=== PATIENT | female | born 1950 | race Caucasian/White ===

== ENCOUNTER → 2016-11-29 | Outpatient (CLI) | payer MEDICARE, BC | END | disposition home or self-care (01) | LOC: LABWHC1 08:14 | PROVIDERS: ATTEND Nurse Practitioner Adult Health | DX: E78.2 Mixed hyperlipidemia (principal); E03.8 Other specified hypothyroidism | CPT/HCPCS: 36415; 80061; 82550; 84443; 84450; 84460 ==

== ENCOUNTER → 2017-04-30 | Outpatient (CLI) | payer MEDICARE, BC ==
[2017-04-30 08:09] LABS: Cholesterol 258 mg/dL (<200); Glucose 90 mg/dL (74-99); HDL Cholesterol 104 mg/dL (40-60)
== END | disposition home or self-care (01) ==
LOC: LABWHC1 07:24
PROVIDERS: ATTEND Family Medicine
DX: Z13.9 Encounter for screening, unspecified (principal)
CPT/HCPCS: 36415; 80061; 82947; 86803

== ENCOUNTER → 2017-10-17 | Outpatient (CLI) | payer MEDICARE, BC ==
[2017-10-17 08:26] LABS: ALT 28 U/L (9-52); AST 30 U/L (14-36); Cholesterol 209 mg/dL (<200); HDL Cholesterol 99 mg/dL (40-60); LDL Cholesterol,Calculated 97 mg/dL (0-99); Triglycerides 67 mg/dL (<150)
== END | disposition home or self-care (01) ==
LOC: LABWHC1 07:25
PROVIDERS: ATTEND Internal Medicine Interventional Cardiology
DX: E78.2 Mixed hyperlipidemia (principal)
CPT/HCPCS: 36415; 80061; 84450; 84460

== ENCOUNTER → 2019-11-01 | Outpatient (CLI) | payer MEDICARE, BC ==
[2019-11-01 16:14] LABS: Chol/HDL Ratio 2.51; LDL Cholesterol,Calculated 128.4 mg/dL (0.0-131.0); VLDL Calculation 10.6 mg/dL (5.00-40.00)
== END | disposition home or self-care (01) ==
LOC: LABWHC1 09:06
PROVIDERS: ATTEND Nurse Practitioner Adult Health
DX: E78.5 Hyperlipidemia, unspecified (principal)
CPT/HCPCS: 36415; 80061; 84450; 84460

== ENCOUNTER → 2019-12-30 | Outpatient (CLI) | payer MEDICARE, BC ==
--- NOTE | 2019-12-30 12:43 | XR ---
Left hip HISTORY: Left hip pain 2 views the left hip Bone mineralization, joint spaces and alignment are maintained. No fracture or dislocation. Phlebolit hs are present within the pelvis. IMPRESSION: No significant abnormality is evident
== END | disposition home or self-care (01) ==
LOC: RADXRMAIN 10:04
PROVIDERS: ATTEND Family Medicine
DX: M25.552 Pain in left hip (principal)
CPT/HCPCS: 73502

== ENCOUNTER → 2020-02-18 | Outpatient (CLI) | payer MEDICARE, BC ==
--- NOTE | 2020-02-22 07:17 | MM ---
Reason for exam: screening (asymptomatic). Last mammogram was performed 1 year and 5 months ago. History: Patient is postmenopausal and is nulliparous. Benign stereotactic core biopsy, 1989. Benign excisional biopsy, 1989. Took estrogen for 5 years. Physical Findings: A clinical breast exam by your physician is recommended on an annual basis and results should be correlated with mammographic findings. MG 3D Screening Mammo W/Cad Bilateral CC and MLO view(s) were taken. Prior study comparison: September 07, 2018, mammogram. September 01, 2017, mammogram. The breast tissue is heterogeneously dense. This may lower the sensitivity of mammography. No significant changes when compared with prior studies. ASSESSMENT: Negative, BI-RAD 1 RECOMMENDATION: Routine screening mammogram of both breasts in 1 year.
== END | disposition home or self-care (01) ==
LOC: RADMAMWWP 14:41
PROVIDERS: ATTEND Family Medicine
DX: Z12.31 Encounter for screening mammogram for malignant neoplasm of breast (principal)
CPT/HCPCS: 77063; 77067

== ENCOUNTER → 2020-10-12 | Outpatient (CLI) | payer MEDICARE, BC | END | disposition home or self-care (01) | LOC: LABWHC1 16:15 | PROVIDERS: ATTEND Otolaryngology | DX: J06.9 Acute upper respiratory infection, unspecified (principal); H91.20 Sudden idiopathic hearing loss, unspecified ear | CPT/HCPCS: U0003; C9803 ==

== ENCOUNTER 2020-12-29 10:35 | Day surgery (SDC) | payer MEDICARE, BC ==
[2020-12-28 13:42] VITALS: BMI 21.9
[~2020-12-29 10:35] MED LIST: LACTATED RINGERS 1,000 ML IV SCH
[2020-12-29 11:24] VITALS: TEMP 97.7
[2020-12-29] MEDS ORDERED: LACTATED RINGERS 1,000 ML IV ONE ×2 (11:24)
[2020-12-29] MEDS ORDERED: LIDOCAINE 1% (10MG/ML) FOR IV START INTRADERMA ONE (11:35)
[2020-12-29 11:36] LABS: Glucose,Whole Blood 90 mg/dL (75-99)
[2020-12-29] MEDS ORDERED: ONDANSETRON 4 MG/2 ML VIAL ONE (12:17)
[2020-12-29] MEDS ORDERED: PROPOFOL 10 MG/ML 20 ML VIAL IV ONE (12:17)
[2020-12-29] MEDS ORDERED: LIDOCAINE 1% INJ 10MG/ML (20 ML MDV) ONE (12:17)
--- NOTE | 2020-12-29 12:27 | P.PCN ---
Date of Procedure: 12/29/20 Procedure(s) Performed: BRIEF HISTORY: Patient is a 70-year-old, pleasant, female scheduled for an upper endoscopy as a part of evaluation of atypical chest pain and heartburn for the last 6 weeks duration. She was recently started on omeprazole 20 mg daily as well as Pepcid in the afternoon and symptoms are gradually improving. Scheduled for an upper endoscopy to evaluate further. PROCEDURE PERFORMED: Esophagogastroduodenoscopy with biopsy. PREOPERATIVE DIAGNOSIS: GERD/atypical chest pain of 2 months duration. IV sedation per anesthesia. PROCEDURE: After informed consent was obtained, the patient was brought into the endoscopy unit. IV sedation was administered by Anesthesia under continuous monitoring. Initially the Olympus GIF-140 video endoscope was inserted into the mouth. Esophagus intubated without any difficulty. It was gradually advanced into the stomach and duodenum and carefully examined. The bulb and the second part of the duodenum appeared normal. The scope at this time was withdrawn to the stomach, adequately insufflated with air, and upon careful examination, mucosa of the antrum, had mild gastritis and biopsies were done from this area. The body, cardia and the fundus appeared normal. The scope was then withdrawn into the esophagus. Small to moderate size hiatal hernia noted. The GE junction was located at 37 cm from the incisors. The esophagus appeared normal. There were no erosions or ulcerations seen, biopsies were done from the distal esophagus and the patient tolerated the procedure well. IMPRESSION: 1. Small hiatal hernia but no evidence of esophagitis or Gr's esophagus. 2. Mild antral gastritis. RECOMMENDATIONS: The findings of this examination were discussed with the patient as well as her family. She was advised to follow with the biopsy results. In the meantime she'll continue with omeprazole 20 mg once daily and Pepcid at bedtime. She was briefly educated about diet modification antireflux measures..
[2020-12-29 12:34] VITALS: RESP 16
[2020-12-29 12:48] VITALS: BP 164/75; PULSE 62
== END 2020-12-29 13:07 | disposition home or self-care (01) ==
LOC: ORWHC2ENDO 10:35
PROVIDERS: ATTEND Internal Medicine Gastroenterology
DX: K29.50 Unspecified chronic gastritis without bleeding (principal); K21.9 Gastro-esophageal reflux disease without esophagitis; K44.9 Diaphragmatic hernia without obstruction or gangrene; Z79.899 Other long term (current) drug therapy; Z88.1 Allergy status to other antibiotic agents
CPT/HCPCS: 88305; 43239; J2405; J2001; J2704

== ENCOUNTER 2021-01-17 06:09 | Day surgery (SDC) | payer MEDICARE, BC ==
[2021-01-15 13:41] VITALS: BMI 22.1
[~2021-01-17 06:09] MED LIST changes: +ALPRAZolam 0.25 MG TAB PO PRN; +ALPRAZolam 0.5 MG TAB PO PRN; +ASPIRIN 325 MG TAB PO STA; +HEPARIN SODIUM,PORCINE 10,000 UNIT in SODIUM CHLORIDE 0.9% 1,000 ML IRRIGATION PRN; +HEPARIN SODIUM,PORCINE 2,500 UNIT in SODIUM CHLORIDE 0.9% 250 ML IRRIGATION PRN; -LACTATED RINGERS 1,000 ML IV SCH; +NITROGLYCERIN SL TABS 0.4 MG TAB SUBLINGUAL PRN; +SODIUM CHLORIDE 0.9% 1,000 ML in EMPTY BAG 1 BAG IV ONE
[2021-01-17] MEDS ORDERED: SODIUM CHLORIDE 0.9% 1,000 ML IV ONE (06:20)
[2021-01-17 06:31] LABS: Basophils % (A) 1 %; Eosinophils # (A) 0.2 k/uL (0-0.7); Eosinophils % (A) 4 %; HCT 42.8 % (34.0-46.0); HGB 14.1 gm/dL (11.4-16.0); Lymphocytes # (A) 2.1 k/uL (1.0-4.8); Lymphocytes % (A) 39 %; MCH 31.2 pg (25.0-35.0); MCV 94.4 fL (80.0-100.0); Mean Platelet Volume 7.5; Monocytes # (A) 0.3 k/uL (0-1.0); Monocytes % (A) 6 %; Neutrophils # (A) 2.6 k/uL (1.3-7.7); Neutrophils % (A) 48 %; Platelet Count 273 k/uL (150-450); RBC 4.54 m/uL (3.80-5.40); RDW 12.7 % (11.5-15.5); WBC 5.5 k/uL (3.8-10.6)
[2021-01-17 06:40] LABS: Calcium 9.9 mg/dL (8.4-10.2); Potassium 4.1 mmol/L (3.5-5.1)
[2021-01-17 06:41] VITALS: TEMP 97.1
[2021-01-17] MEDS ORDERED: fentaNYL (PF) 50 MCG/ML 2 ML AMP ONE (07:01)
[2021-01-17] MEDS ORDERED: BENZOCAINE SPRAY 1 CAN MUCOUS MEM ONE (07:10)
[2021-01-17] MEDS ORDERED: HEPARIN SODIUM 1,000 UN/ML (10ML VL) ONE (07:13)
[2021-01-17] MEDS ORDERED: LIDOCAINE 1% INJ 10MG/ML (20 ML MDV) ONE (07:13)
[2021-01-17] MEDS ORDERED: VERAPAMIL 2.5 MG/ML 2 ML AMP ONE (07:13)
[2021-01-17] MEDS ORDERED: fentaNYL (PF) 50 MCG/ML 2 ML AMP IV ONE (07:15)
[2021-01-17] MEDS: MIDAZOLAM 2 MG/2 ML VIAL IV ONE ×2 (07:15→08:16)
[2021-01-17] MEDS ORDERED: IV FLUID CONTINUATION 1,000 ML IV ONE (07:32)
[2021-01-17] MEDS ORDERED: LIDOCAINE 1% INJ 10MG/ML (20 ML MDV) SQ ONE (07:55)
[2021-01-17] MEDS: VERAPAMIL SYRINGE (5 MG/10 ML) INTRAARTER ONE ×2 (07:59→08:18)
--- NOTE | 2021-01-17 08:00 | ECHOT ---
TRANSESOPHAGEAL ECHOCARDIOGRAM INDICATION: Evaluation of aortic valve. PROCEDURE: After explaining the procedure to the patient, its risks and the complications, blood pressure, heart rate, O2 saturation was monitored. The throat was sprayed with Cetacaine. She received 3 mg intravenous Versed and 50 mcg intravenous fentanyl. The probe was introduced in the esophagus without difficulty. Images were obtained. Following that, the probe was removed. There was no immediate complication. FINDINGS: Left atrial size is mildly dilated. Right atrial size is normal. Left atrial appendage is normal. The aortic valve is a tricuspid valve with normal opening. Mitral valve appears to be normal. Tricuspid valve is normal. Descending thoracic aorta appears to be normal. No pericardial effusion was noted. The overall left ventricular systolic function appears to be preserved. The overall ejection fraction of 50- 55%. The left ventricular size is normal. Contrast bubble study revealed no shunting across the interatrial septum with Valsalva maneuver. Doppler pulse wave and color Doppler obtained revealed severe aortic regurgitation with a mild to moderate mitral regurgitation. There was no shunting across the interatrial septum. Trace pulmonic regurgitation was noted. CONCLUSION: 1. Mildly dilated left atrium with normal appearance left atrial appendage. 2. Left ventricular systolic ejection fraction of 50-55% with normal left ventricle size. 3. Normal appearance of the aorta with severe central aortic regurgitation. 4. Mild to moderate mitral regurgitation. 5. Normal appearance of the descending thoracic aorta. 6. No pericardial effusion. 7. No shunting across the interatrial septum. MMODL / IJN: [id number] / MTDD
[2021-01-17] MEDS ORDERED: HEPARIN SODIUM 1,000 UN/ML (10ML VL) IV ONE (08:14)
[2021-01-17 08:21] LABS: O2 Sat Blood Gas 97.5 %
[2021-01-17 08:23] LABS: O2 Sat Blood Gas 78.1 %
[2021-01-17] MEDS ORDERED: IOPAMIDOL-370 100ML BTL INJ ONE (08:24)
[2021-01-17 08:25] LABS: O2 Sat Blood Gas 78.7 %
[2021-01-17] MEDS ORDERED: RX INFO: IV CONTRAST WAS GIVEN 1 EACH MISC MISCELLANE PRN (08:38)
[2021-01-17] MEDS ORDERED: SODIUM CHLORIDE 0.9% 1,000 ML IV SCH (08:45)
[2021-01-17] MEDS ORDERED: NON FORMULARY DRUG (Magnesium [Magnesium] 200 MG Tablet) PO SCH (09:00)
[2021-01-17] MEDS ORDERED: OMEPRAZOLE 40 MG PO SCH (09:00)
--- NOTE | 2021-01-17 09:51 | CC ---
CARDIAC CATHETERIZATION REPORT PROCEDURE: Cardiac catheterization. INDICATIONS: Mrs. Watts 70-year-old female who has been complaining of progressive dyspnea on exertion and was found to have severe aortic regurgitation. In view of that, recommendation was made regarding cardiac catheterization. The procedure as well as the risks and complication were discussed with the patient who is in full understanding and agreement. PROCEDURE IN DETAIL: Patient was brought to the clinical laboratory service teacher in a fasting semi-sedated state after receiving fentanyl and Benadryl and achieving moderate conscious sedated state. Using Xylocaine anesthesia, Seldinger technique, a 6-Latvian sheath was introduced in the right radial artery. Subsequently, the basilic intravenous catheter was exchanged to a 6-Latvian sheath. Subsequently a right heart catheterization was performed using [place]-B[place] catheter. Multiple pressure and samples were obtained. Cardiac output by thermodilution was performed. Subsequently, the [place]-Bijan catheter was removed and selective right and left coronary angiography performed using 5-Latvian 3.5 bend right and left Pippa catheter. Multiple views of the coronary artery including hemiaxial views were obtained. Subsequently a 6-[place]vian tight pigtail catheter was introduced into the left ventricle and pressures were calculated. Then an MALTESE view of the ascending aorta was performed. Following that, the catheter and sheath were removed. Hemostasis was obtained by the placement of a TR band on the right radial artery and pressure on the right venous site. There was no immediate complication. Patient was returned to her room in stable condition. Of note, the patient received 3000 units intravenous heparin as well as intra-arterial verapamil. HEMODYNAMICS: Cardiac output by Ibeth 6.5 L/minute and by thermodilution 6.3 L/minute. Cardiac index 4.2 L/minute by Ibeth and 3.9 L/minute/ meter square by thermodilution. Pulmonary artery saturation of 78%, right atrial saturation 79%, arterial saturation of 98%. Pulmonary artery systolic pressure of 22 with a diastolic of 2 and a mean of 10 mmHg. Pulmonary capillary wedge pressure A-wave of 9, V-wave of 7 with a mean of 4 mmHg. Right ventricle systolic pressure of 20 with an end-diastolic of 1. Right atrial A- wave of 2, V-wave 2 with a mean of 2 mmHg. There was no gradient across the aortic valve. The left ventricular end-diastolic pressure was 10 mmHg. CORONARIES: LEFT MAIN: This is a large-sized vessel, bifurcating into left circumflex, left anterior descending artery. Left main coronary artery has no evidence of high-grade stenosis. LEFT ANTERIOR DESCENDING ARTERY: This is a large-sized vessel giving rise to a large proximal diagonal branch. Left anterior descending artery has a 10% plaque proximally. The rest of the vessel has no high-grade stenosis. LEFT CIRCUMFLEX: This is a nondominant vessel giving rise to a large obtuse marginal branch. The left circumflex as well as its branches have no evidence of obstructive coronary artery disease. RIGHT CORONARY ARTERY: This is a large dominant vessel bifurcating distally into PDA and posterolateral segment and branches. The right coronary artery as well as branches have no evidence of obstructive coronary artery disease. AORTOGRAM: Aortogram was performed in the MALTESE view and revealed a central 4+ aortic regurgitation with mild dilatation of the ascending aorta. CONCLUSION: 1. Minimal coronary artery disease. 2. Severe aortic regurgitation. 3. No evidence of pulmonary hypertension. RECOMMENDATION: In view of finding anatomy, I have recommended to continue medical therapy at this time and evaluate the patient for aortic valve intervention. Those findings and recommendations were discussed with the patient and her family who are in full understanding and agreement. Duration of the sedation is 30 minutes. MMODL / IJN: [id number] /
[2021-01-17 10:15] VITALS: RESP 16
[2021-01-17 12:55] VITALS: BP 146/78; PULSE 55
[2021-01-17] MEDS ORDERED: FAMOTIDINE 20 MG TAB PO SCH (17:30)
[2021-01-17] MEDS ORDERED: cycloSPORINE 0.05% OPHTH 0.4 ML DROPERETTE BOTH EYES SCH (21:00)
== END 2021-01-17 12:55 | disposition home or self-care (01) ==
LOC: CATHCVL 06:09
PROVIDERS: ATTEND Internal Medicine Interventional Cardiology
DX: I25.10 Atherosclerotic heart disease of native coronary artery without angina pectoris (principal); I08.0 Rheumatic disorders of both mitral and aortic valves; E78.2 Mixed hyperlipidemia; Z82.49 Family history of ischemic heart disease and other diseases of the circulatory system; Z90.710 Acquired absence of both cervix and uterus; Z90.49 Acquired absence of other specified parts of digestive tract; Z90.89 Acquired absence of other organs; Z98.890 Other specified postprocedural states; Z87.891 Personal history of nicotine dependence; Z79.899 Other long term (current) drug therapy; Z88.1 Allergy status to other antibiotic agents; Z88.0 Allergy status to penicillin
CPT/HCPCS: 93312; 93320; 93325; 93460; 93567; 80048; 85018; 82810; 85025; C1751; C1894; C1769; J2250; J2001; J3010; J1644; Q9967

== ENCOUNTER → 2021-03-01 | Outpatient (CLI) | payer MEDICARE, BC ==
--- NOTE | 2021-03-01 10:07 | CT ---
EXAMINATION TYPE: CT angio chest DATE OF EXAM: 03/01/2021 9:58 AM COMPARISON: None. HISTORY: thoracic aneurysm CT DLP: 176.7 mGycm Automated exposure control for dose reduction was used. CONTRAST: CTA scan of the thorax is performed with IV Contrast, patient injected with 100 mL of Isovue 370, ane urysm protocol. 3D reconstructed images are created on an independent workstation and reviewed.. FINDINGS: LUNGS: The lungs are grossly clear, there is no concerning parenchymal mass or nodule identified. T here is no pleural effusion or pneumothorax seen. The tracheobronchial tree is patent. MEDIASTINUM: There is satisfactory enhancement of the central pulmonary arteries. Heart size upper li mits of normal. Mild left ventricular dilatation. Zyot-cm-kmghrtrr right atrial dilatation. The aorti c root measures up to 3.9 cm in diameter. Mid abdominal aorta measures up to 3.8 cm in diameter. Norm al 3 vessel origin from the aortic arch with moderate calcified plaque near the left subclavian arter y origin, no significant stenosis. No aneurysm in the descending thoracic aorta. No linear hypodensit y to suggest dissection. There are no greater than 1 cm hilar or mediastinal lymph nodes. No peric ardial effusion is seen. OTHER: Cholecystectomy clips. Mild multilevel spurring in the thoracic spine. IMPRESSION: There is ectasia to borderline aneurysm of the ascending aorta up to 3.9 cm.
== END | disposition home or self-care (01) ==
LOC: RADCTMAIN 07:59
PROVIDERS: ATTEND Surgery
DX: I71.2 Thoracic aortic aneurysm, without rupture (principal)
CPT/HCPCS: 82565; 84520; 71275; 36415; Q9967

== ENCOUNTER → 2021-03-05 | Outpatient (CLI) | payer MEDICARE, BC ==
--- NOTE | 2021-03-07 09:31 | MM ---
Reason for exam: screening (asymptomatic). Last mammogram was performed 1 year and 1 month ago. History: Patient is postmenopausal and is nulliparous. Benign stereotactic core biopsy, 1989. Benign excisional biopsy, 1989. Took estrogen for 5 years. Physical Findings: A clinical breast exam by your physician is recommended on an annual basis and results should be correlated with mammographic findings. MG 3D Screening Mammo W/Cad Bilateral CC and MLO view(s) were taken. Prior study comparison: February 18, 2020, bilateral MG 3d screening mammo w/cad. September 07, 2018, mammogram. The breast tissue is heterogeneously dense. This may lower the sensitivity of mammography. Stable asymmetric densities. No significant changes when compared with prior studies. ASSESSMENT: Negative, BI-RAD 1 RECOMMENDATION: Routine screening mammogram of both breasts in 1 year. Patient should continue monthly self breast exams. A negative report should not preclude additional follow up of suspicious palpable abnormalities.
== END | disposition home or self-care (01) ==
LOC: RADMAMWWP 16:27
PROVIDERS: ATTEND Family Medicine
DX: Z12.31 Encounter for screening mammogram for malignant neoplasm of breast (principal); Z78.0 Asymptomatic menopausal state
CPT/HCPCS: 77063; 77067

== ENCOUNTER → 2021-03-13 | Outpatient (CLI) | payer MEDICARE, BC ==
[2021-03-13 10:09] LABS: HCT 39.9 % (34.0-46.0); HGB 12.7 gm/dL (11.4-16.0); MCH 30.5 pg (25.0-35.0); MCHC 31.8 g/dL (31.0-37.0); MCV 95.8 fL (80.0-100.0); Mean Platelet Volume 7.1; Partial Thromboplastin Time 23.5 sec (22.0-30.0); Platelet Count 258 k/uL (150-450); Prothrombin Time 10.3 sec (9.0-12.0); RBC 4.17 m/uL (3.80-5.40); RDW 12.7 % (11.5-15.5); WBC 6.9 k/uL (3.8-10.6)
[2021-03-13 10:15] LABS: Albumin 4.2 g/dL (3.5-5.0); Potassium 4.4 mmol/L (3.5-5.1); Total Bilirubin 0.5 mg/dL (0.2-1.3); Total Protein 7.2 g/dL (6.3-8.2)
[2021-03-13 10:54] LABS: Appearance,Urine Clear (Clear); Bilirubin,Urine Negative (Negative); Blood,Urine Negative (Negative); Color,Urine Colorless; Glucose,Urine (UA) Negative (Negative); Ketones,Urine Negative (Negative); Leukocyte Esterase,Urine Negative (Negative); Nitrite,Urine Negative (Negative); PH, Urine 5.5 (5.0-8.0); Protein,Urine Negative (Negative); Specific Gravity,Urine 1.002 (1.001-1.035); Urobilinogen,Urine <2.0 mg/dL (<2.0)
--- NOTE | 2021-03-13 13:03 | XR ---
EXAMINATION TYPE: XR chest 2V DATE OF EXAM: 03/13/2021 COMPARISON: NONE TECHNIQUE: PA and lateral views submitted. HISTORY: Chest pain FINDINGS: The lungs are clear and there is no pneumothorax, pleural effusion, or focal pneumonia. Hyperinflat ion. Vague 5 mm nodule left upper lobe. Atherosclerotic change aorta. Heart size normal. Hypertrophic and degenerative change of the spine. Surgical clips in the upper abdomen. IMPRESSION: 1. No acute process. COPD. There is a 5 mm nodule left upper lobe short-term follow-up CT chest recom mended.
--- NOTE | 2021-03-13 13:33 | US ---
EXAMINATION TYPE: US carotid duplex BILAT DATE OF EXAM: 03/13/2021 COMPARISON: NONE CLINICAL HISTORY: OPEN HEART. HTN- on meds. EXAM MEASUREMENTS: RIGHT: Peak Systolic Velocity (PSV) cm/sec ----- Right CCA: 91.0 ----- Right ICA: 103.0 ----- Right ECA: 50.5 ICA/CCA ratio: 1.1 RIGHT: End Diastole cm/sec ----- Right CCA: 0.0 ----- Right ICA: 18.7 ----- Right ECA: 0.0 LEFT: Peak Systolic Velocity (PSV) cm/sec ----- Left CCA: 89.2 ----- Left ICA: 119.4 ----- Left ECA: 60.3 ICA/CCA ratio: 1.3 LEFT: End Diastole cm/sec ----- Left CCA: 0.0 ----- Left ICA: 22.5 ----- Left ECA: 0.0 VERTEBRALS (direction of flow): Right Vertebral: Antegrade Left Vertebral: Antegrade Rhythm: Normal Plaque in bilateral bulbs. No elevated velocities. No significant stenosis. IMPRESSION: 1. Bilateral atherosclerotic plaque with no significant hemodynamic stenosis. Criteria for Assigning % of Stenosis / Diameter reduction (Estimation based on the indirect measurements of the internal carotid artery velocities (ICA PSV). 1. Normal (no stenosis)=ICA PSV < 125 cm/s: ratio < 2.0: ICA EDV<40 cm/s. 2. Less than 50% stenosis=ICA PSV < 125 cm/s: ratio < 2.0: ICA EDV<40 cm/s. 3. 50 to 69% stenosis=ICA PSV of 125 to 230 cm/s: ration 2.0 ? 4.0: ICA EDV 40-100 cm/s. 4. Greater than 70% stenosis to near occlusion= ICA PSV > 230 cm/s: ratio > 4.0: ICA EDV > 100 cm/s. 5. Near occlusion= ICA PSV velocities may be low or undetectable: variable ratio and ICA EDV. 6. Total occlusion=unable to detect flow.
--- NOTE | 2021-03-13 16:53 | P.PN ---
Progress Note - Text Progress Note Date: 03/13/21 A 5 m walk test was completed with the patient time 1: 2.66 seconds, time 2: 2.80 seconds, time 3: 2.85 seconds. Her STS risk score was calculated in discussed with the patient.
[2021-03-13 19:05] LABS: Hemoglobin A1C 5.7 % (4.0-6.0)
[2021-03-13 20:43] LABS: Hepatitis A Antibody IgM Non-Reactive (Non-Reactive); Hepatitis B Core IgM Non-Reactive (Non-Reactive); Hepatitis B Surface Antigen Non-Reactive (Non-Reactive); Hepatitis C IgG Antibody Non-Reactive (Non-Reactive)
[2021-03-13 21:35] LABS: Chol/HDL Ratio 2.42; LDL Cholesterol,Calculated 133.2 mg/dL (0.0-131.0); VLDL Calculation 11.8 mg/dL (5.00-40.00)
--- NOTE | 2021-03-14 11:14 | P.ARTDOP ---
Arterial Doppler LOWER EXTREMITY ARTERIAL DOPPLER: DATE OF SERVICE: 03/13/2021 Reason for study: Preop CABG. Doppler waveforms: Multiphasic bilaterally throughout. Pulse volume recording: []. Pressure gradients: None. Ankle-brachial indices: Greater than 1 bilaterally. Toe brachial indices: [] on the right, [] on the left Impression: Normal study.
--- NOTE | 2021-03-14 11:26 | P.VSCSTY ---
Greater Saphenous Vein Mapping This is bilateral lower extremity greater saphenous vein mapping. Date of service: 03/13/2021 Vein quality and ultrasound appearance: We see no intraluminal thrombus or obvious wall changes. Lower leg and ankles are both rather small for use as conduit. Vein size groin right : 5.8 x 5 groin left: 6.8 x 5.8 High thigh right: 3.3 x 2.5 high thigh left: 4.3 x 2.8 Mid thigh right: 3.4 x 2.5 mid thigh left: 3.5 x 3 Above-knee right: 2.4 x 2.1 above- knee left: 2.7 x 2.7 Below knee right: 2.2 x 2.0 below-knee left: 2.7 x 2.2 Mid calf right: 1.7 x 1.6 mid calf left: 2.3 x 1.7 Ankle right: 1.8 x 1.2 ankle left: 1.9 x 1.4 Impression: Usable bilateral greater saphenous vein. Lower leg and ankle small.
== END | disposition home or self-care (01) ==
LOC: LABPAT 08:51
PROVIDERS: ATTEND Surgery
DX: Z01.810 Encounter for preprocedural cardiovascular examination (principal); Z20.822 Contact with and (suspected) exposure to COVID-19; I65.23 Occlusion and stenosis of bilateral carotid arteries; I35.1 Nonrheumatic aortic (valve) insufficiency; I10 Essential (primary) hypertension; J44.9 Chronic obstructive pulmonary disease, unspecified; I35.0 Nonrheumatic aortic (valve) stenosis; R00.1 Bradycardia, unspecified; Z79.899 Other long term (current) drug therapy; R91.1 Solitary pulmonary nodule
CPT/HCPCS: 94150; 80061; 80053; 80074; 84443; 83735; 85027; 85610; 85730; 81003; 87070; 87086; 83036; 71046; 93970; 93922; 93880; 93005; 36415; U0003; C9803; U0005

== ENCOUNTER 2021-03-19 08:00 | Inpatient (IN) | payer MEDICARE, BC ==
[2021-03-22] MEDS ORDERED: PROTAMINE SULFATE 250 MG in EMPTY BAG 1 BAG IV ONE (05:00)
[2021-03-22] MEDS ORDERED: ATORVASTATIN 10 MG TAB PO ONE (05:00)
[2021-03-22] MEDS ORDERED: PROTAMINE SULFATE 10 MG/ML 25 ML VIAL IV ONE ×2 (05:00→07:56)
[2021-03-22] MEDS ORDERED: propofoL 1,000 MG/100 ML VIAL IV ONE (05:00)
[2021-03-22] MEDS ORDERED: ceFAZolin 1,000 MG in SODIUM CHLORIDE 0.9% IRRIGATIO 1,000 ML IRRIGATION ONE (05:00)
[2021-03-22] MEDS ORDERED: CHLORHEXIDINE GLUCONATE 15 ML CUP MUCOUS MEM ONE (05:00)
[2021-03-22] MEDS ORDERED: HEPARIN SODIUM 1,000 UN/ML (10ML VL) IV ONE (05:00)
[2021-03-22] MEDS ORDERED: HEPARIN SODIUM,PORCINE 5,000 UNIT in SODIUM CHLORIDE 0.9% 500 ML 500 ML IV ONE (05:00)
[2021-03-22] MEDS ORDERED: LACTATED RINGERS 1,000 ML IV ONE (05:00)
[2021-03-22] MEDS ORDERED: SODIUM CHLORIDE 0.9% 1,000 ML IV ONE (05:00)
[2021-03-22] MEDS ORDERED: NOREPINEPHRINE 4 MG in SODIUM CHLORIDE 0.9% 250 ML IV ONE (05:00)
[2021-03-22] MEDS ORDERED: TRANEXAMIC ACID 2,000 MG in SODIUM CHLORIDE 0.9% 80 ML IV ONE (05:00)
[2021-03-22] MEDS ORDERED: ELECTROLYTE-A SOLUTION 1,000 ML with POTASSIUM CHLORIDE 100 MEQ, MAGNESIUM SULFATE 16 M... IV ONE ×5 (05:00)
[2021-03-22] MEDS ORDERED: ALBUMIN HUMAN 25% 50 ML IV ONE (05:00)
[2021-03-22] MEDS ORDERED: CLEVIDIPINE BUTYRATE 25 MG in EMPTY BAG 1 BAG IV ONE (05:00)
[2021-03-22] MEDS ORDERED: METOPROLOL TARTRATE 12.5 MG TAB PO ONE (05:00)
[2021-03-22] MEDS ORDERED: MAGNESIUM SULFATE MG 500 MG/ML IV ONE (05:00)
[2021-03-22] MEDS ORDERED: PHENYLEPHRINE 40 MG in SODIUM CHLORIDE 0.9% 250 ML IV ONE (05:00)
[2021-03-22] MEDS ORDERED: NITROGLYCERIN SL TABS 0.4 MG TAB SUBLINGUAL ONE (05:00)
[2021-03-22] MEDS ORDERED: NITROGLYCERIN-D5W PMX 50 MG in DEXTROSE/WATER 1 250ML.BAG IV ONE (05:00)
[2021-03-22] MEDS ORDERED: ASPIRIN 325 MG TAB PO ONE (05:00)
[2021-03-22] MEDS ORDERED: SODIUM BICARB 8.4% 50 ML SYR (1 MEQ/ML) IV ONE (05:00)
[2021-03-22] MEDS ORDERED: INSULIN REGULAR 100 UNIT in SODIUM CHLORIDE 0.9% 100 ML IV ONE (05:00)
[2021-03-22] MEDS ORDERED: ALBUMIN HUMAN 5% 500 ML IVPB ONE (05:00)
[2021-03-22] MEDS ORDERED: CALCIUM CHLORIDE 100 MG/ML 10 ML SYRINGE IV ONE (05:00)
[2021-03-22] MEDS ORDERED: NITROGLYCERIN-D5W PMX 25 MG/250 ML BTL IV ONE (05:00)
[2021-03-22] MEDS ORDERED: PAPAVERINE 360 MG in SODIUM CHLORIDE 0.9% 90 ML IV ONE (05:00)
[2021-03-22] MEDS ORDERED: ELECTROLYTE-A SOLUTION 1,000 ML with POTASSIUM CHLORIDE 40 MEQ, MAGNESIUM SULFATE 16 ME... IV ONE ×5 (05:00)
[2021-03-22] MEDS ORDERED: MANNITOL 25% 12.5 GM/50 ML VIAL IV ONE (05:00)
[2021-03-22] MEDS ORDERED: PHENYLEPHRINE 10 MG/ML VIAL IV ONE (05:00)
[2021-03-22] MEDS ORDERED: LIDOCAINE 1% (10MG/ML) FOR IV START INTRADERMA ONE (06:59)
[2021-03-22] MEDS ORDERED: fentaNYL (PF) 50 MCG/ML 50 ML VIAL ONE (07:56)
[2021-03-22] MEDS ORDERED: SODIUM CHLORIDE 0.9% IRRIG 1,000 ML BTL IRRIGATION ONE (07:56)
[2021-03-22] MEDS ORDERED: TRANEXAMIC ACID 1,000 MG/10 ML VIAL ONE (07:56)
[2021-03-22] MEDS ORDERED: VECURONIUM 10 MG VIAL IV ONE (07:56)
[2021-03-22] MEDS ORDERED: ELECTROLYTE-R (PH 7.4) 1,000 ML IV.SOLN IV ONE (07:56)
[2021-03-22] MEDS ORDERED: LIDOCAINE 2% SYG (PF) 100 MG/5 ML ONE (07:56)
[2021-03-22] MEDS ORDERED: ePHEDrine SULFATE/0.9% NACL/PF 50 MG/5 ML SYRINGE IV ONE (07:56)
[2021-03-22] MEDS ORDERED: SODIUM CHLORIDE 0.9% 250 ML BAG ONE (07:56)
[2021-03-22] MEDS ORDERED: PROPOFOL 10 MG/ML 20 ML VIAL IV ONE (07:56)
[2021-03-22] MEDS ORDERED: MAGNESIUM SULFATE 4 MEQ/ML 10ML VIAL ONE (07:56)
[2021-03-22] MEDS ORDERED: MIDAZOLAM 2 MG/2 ML VIAL ONE (07:56)
--- NOTE | 2021-03-22 08:09 | P.ANPRN ---
Procedure Note - Anesthesia - Invasive Line Right Arterial Line Time Out Performed: Yes Date of Procedure: 03/22/21 Time of Procedure: 07:40 Location of Patient: PreOp Preparation: Sterile Prep, Sterile Dressing Arterial Line Location: Radial Ultrasound Used: Yes Purpose - Visualization and Identification of Vasculature: Yes Needle Guage: 20 Image Stored and Saved: Yes Narrative: Right radial placed using Seldinger technique Right Central Line Time Out Performed: Yes Date of Procedure: 03/22/21 Time of Procedure: 07:15 Location of Patient: PreOp Preparation: Sterile Prep, Sterile Dressing Ultrasound Used: Yes Purpose - Visualization and Identification of Vasculature: Yes Needle Guage: 18 Image Stored and Saved: Yes Narrative: 9F Cordis placed using Seldinger technique Right Rodanthe Bijan Time Out Performed: Yes Date of Procedure: 03/22/21 Time of Procedure: 07:25 Location of Patient: PreOp Preparation: Sterile Prep, Sterile Dressing Narrative: Rodanthe placed into PA. Secured @ 40 cm
[2021-03-22 08:29] LABS: ABG Base Excess 1.6 mmol/L; ABG Glucose Whole Blood 100 mg/dL (75-99); ABG HCO3 26 mmol/L (21-25); ABG Hematocrit 39 % (34.0-46.0); ABG Ionized Calcium 5.2 mg/dL (4.5-5.3); ABG Lactic Acid Whole Blood 0.6 mmol/L (0.5-1.6); ABG PCO2 41 mmHg (35-45); ABG PH 7.42 (7.35-7.45); ABG PO2 330 mmHg (83-108); ABG Potassium Whole Blood 4.4 mmol/L (3.4-4.5); ABG Sodium Whole Blood 141 mmol/L (135-146); ABG TCO2 28 mmol/L (19-24)
[2021-03-22] MEDS ORDERED: ceFAZolin 1,000 MG in SODIUM CHLORIDE 0.9% 1,000 ML IRRIGATION ONE (09:22)
[2021-03-22] MEDS ORDERED: SODIUM CHLORIDE 0.9% 500 ML 500 ML with HEPARIN SODIUM,PORCINE 5,000 UNIT IV ONE ×2 (09:22)
[2021-03-22 09:32] LABS: ABG Base Excess 0.9 mmol/L; ABG Glucose Whole Blood 117 mg/dL (75-99); ABG HCO3 26 mmol/L (21-25); ABG Hematocrit 35 % (34.0-46.0); ABG Ionized Calcium 5.1 mg/dL (4.5-5.3); ABG Lactic Acid Whole Blood 0.5 mmol/L (0.5-1.6); ABG PCO2 43 mmHg (35-45); ABG PH 7.39 (7.35-7.45); ABG PO2 314 mmHg (83-108); ABG Potassium Whole Blood 4.1 mmol/L (3.4-4.5); ABG Sodium Whole Blood 140 mmol/L (135-146); ABG TCO2 27 mmol/L (19-24)
[2021-03-22 10:06] LABS: ABG Base Excess 0.1 mmol/L; ABG Glucose Whole Blood 122 mg/dL (75-99); ABG HCO3 24 mmol/L (21-25); ABG Hematocrit 25 % (34.0-46.0); ABG Ionized Calcium 4.2 mg/dL (4.5-5.3); ABG Lactic Acid Whole Blood 0.6 mmol/L (0.5-1.6); ABG PCO2 37 mmHg (35-45); ABG PH 7.43 (7.35-7.45); ABG Potassium Whole Blood 4.4 mmol/L (3.4-4.5); ABG Sodium Whole Blood 138 mmol/L (135-146); ABG TCO2 26 mmol/L (19-24)
[2021-03-22 10:32] LABS: ABG Base Excess -0.1 mmol/L; ABG Glucose Whole Blood 131 mg/dL (75-99); ABG HCO3 25 mmol/L (21-25); ABG Ionized Calcium 4.3 mg/dL (4.5-5.3); ABG Lactic Acid Whole Blood 0.8 mmol/L (0.5-1.6); ABG PCO2 44 mmHg (35-45); ABG PH 7.37 (7.35-7.45); ABG PO2 322 mmHg (83-108); ABG Potassium Whole Blood 4.5 mmol/L (3.4-4.5); ABG Sodium Whole Blood 140 mmol/L (135-146); ABG TCO2 27 mmol/L (19-24)
[2021-03-22 10:57] LABS: ABG PO2 >420 mmHg (83-108)
[2021-03-22 10:58] LABS: ABG Hematocrit 24 % (34.0-46.0)
--- NOTE | 2021-03-22 12:08 | P.ANPRN ---
Procedure Note - Anesthesia - LULU Intraop Pre Bypass LULU Intraop - Anesthesia Indication: Aortic regurgitation Date of Procedure: 03/22/21 Pre-operative Diagnosis: Aortic regurgitation Post-operative Diagnosis: same Surgeon: Sidney Gilliland Left Ventricle: EF 50% Ejection Fraction: Normal Regional Wall Motion Abnormalities: None Left Ventricle Hypertrophy: Yes R. Ventricle Function: Normal Aortic Valve: Severe AI Anatomy: Trileaflet Aortic Stenosis: None Aortic Regurgitation: Severe Mitral Stenosis: None Mitral Regurgitation: Trace Tricuspid Stenosis: None Tricuspid Regurgitation: None Pulmonic Stenosis: None Pulmonic Regurgitation: None R. Atrial Dilation: No R. Atrial PFO: No L. Atrial Dilation: No Aortic Dissection: No Aortic Calcification: Moderate Plural Effusion: None - LULU Intraop Post Bypass LULU Intraop Post Bypass Procedure Performed: AVR 21mm bioprosthetic Left Ventricle: EF 50% Ejection Fraction: Normal Regional Wall Motion Abnormalities: None R. Ventricle Function: Normal Aortic Valve: Trace perivalvular leak. Peak 29 mm H2O / Mean 16 mmH20 Mitral Valve: Unchanged Tricuspid: Unchanged Pulmonic: Unchanged Aortic Dissection: No
[2021-03-22] MEDS ORDERED: IPRATROPIUM-ALBUTEROL 3 ML NEB INHALATION PRN (12:44)
[2021-03-22] MEDS ORDERED: MORPHINE SULFATE 2 MG/ML SYRINGE IVP PRN (12:44)
[2021-03-22] MEDS ORDERED: ONDANSETRON 4 MG/2 ML VIAL IVP PRN (12:44)
[2021-03-22] MEDS ORDERED: Phosphorus Replacement Protoco 1 EACH MISC MISCELLANE PRN (12:44)
[2021-03-22] MEDS ORDERED: DEXTROSE 5% IN WATER 100 ML with AMIODARONE 150 MG IV PRN (12:44)
[2021-03-22] MEDS ORDERED: AMIODARONE 360 MG in DEXTROSE 5% IN WATER 200 ML IV PRN ×2 (12:44)
[2021-03-22] MEDS ORDERED: AMIODARONE 450 MG in DEXTROSE 5% IN WATER 250 ML IV PRN ×2 (12:44)
[2021-03-22] MEDS ORDERED: BENZOCAINE/MENTHOL LOZENG 1 EACH LOZENGE MUCOUS MEM PRN (12:44)
[2021-03-22] MEDS ORDERED: Magnesium Replacement Protocol 1 EACH MISC MISCELLANE PRN (12:44)
[2021-03-22] MEDS ORDERED: hydrALAZINE HCL 20 MG/ML 1 ML VIAL IVP PRN (12:44)
[2021-03-22] MEDS ORDERED: Potassium Replacement Protocol 1 EACH MISC MISCELLANE PRN ×2 (12:44→18:19)
[2021-03-22] MEDS ORDERED: CALCIUM GLUCONATE 2 GM in SODIUM CHLORIDE 0.9% 100 ML IVPB PRN (12:44)
[2021-03-22] MEDS ORDERED: METOCLOPRAMIDE 5 MG/ML 2 ML VIAL IVP PRN (12:44)
[2021-03-22 12:48] LABS: Glucose,Whole Blood 138 mg/dL (75-99)
[2021-03-22] MEDS ORDERED: ALBUMIN HUMAN 5% 250 ML IVPB ONE (12:48)
[2021-03-22] MEDS: ALBUMIN HUMAN 5% 250 ML in EMPTY BAG 1 BAG IVPB PRN ×2 (12:53→18:13)
[2021-03-22] MEDS ORDERED: DEXMEDETOMIDINE/0.9% NACL(PMX) 400 MCG in EMPTY BAG 1 BAG IV SCH (13:00)
[2021-03-22] MEDS ORDERED: INSULIN REGULAR 100 UNIT in SODIUM CHLORIDE 0.9% 100 ML IV SCH (13:00)
--- NOTE | 2021-03-22 13:00 | XR ---
EXAMINATION TYPE: XR chest 1V portable DATE OF EXAM: 03/22/2021 COMPARISON: Chest x-ray dated 03/13/2021 HISTORY: Postoperative cardiac surgery TECHNIQUE: Single frontal view of the chest is obtained. FINDINGS: Patient is post median sternotomy and left atrial appendage clip placement. There are epic ardial pacing leads present, endotracheal tube, orogastric tube, right jugular central venous cathete r are all noted, the oral gastric tube shows the distal tip at the level of the gastroesophageal junc tion. There is no evident pneumothorax or pleural effusion. Median sternal drains are in place. Cardi ac and mediastinal silhouette is essentially stable. There is subcutaneous emphysema noted. Aorta is dense. Right iliac valve replacement changes noted. IMPRESSION: NG tube as described. Satisfactory postoperative chest x-ray.
[2021-03-22 13:01] LABS: Basophils % (A) 0 %; Eosinophils # (A) 0.2 k/uL (0-0.7); Eosinophils % (A) 3 %; HCT 31.2 % (34.0-46.0); HGB 10.2 gm/dL (11.4-16.0); Lymphocytes % (A) 12 %; MCH 31.5 pg (25.0-35.0); MCHC 32.7 g/dL (31.0-37.0); MCV 96.3 fL (80.0-100.0); Mean Platelet Volume 7.5; Monocytes # (A) 0.2 k/uL (0-1.0); Monocytes % (A) 2 %; Neutrophils # (A) 7.4 k/uL (1.3-7.7); Neutrophils % (A) 83 %; Platelet Count 143 k/uL (150-450); RBC 3.24 m/uL (3.80-5.40); WBC 8.9 k/uL (3.8-10.6)
[2021-03-22] MEDS: CLEVIDIPINE BUTYRATE 25 MG in EMPTY BAG 1 BAG IV SCH ×2 (13:03→20:20)
[2021-03-22] MEDS: SODIUM CHLORIDE 0.9% 1,000 ML IV SCH (13:04)
[2021-03-22 13:10] LABS: Ionized Calcium 5.5 mg/dL (4.5-5.3)
--- NOTE | 2021-03-22 13:12 | P.CNPUL ---
History of Present Illness Consult date: 03/22/21 Chief complaint: AVR History of present illness: 70-year-old female patient is currently postop aortic valve replacement. The patient is postop day #0. The surgery was done for severe aortic regurgitation. She is currently sedated with propofol and she is currently on propofol of 20 mcg/kg per minute. She is well sedated and since sentences mechanical ventilator. She is an assist-control mode with a rate of 12 with a total of 4 of 400 and FiO2 of 80% with a PEEP of 5. Blood gases are still pending for now. Chest x-ray shows adequate expansion of both lungs without any pneumothorax. The patient has mediastinal chest tubes 2. No evidence of any air leak and output from the mediastinal chest tube has been only 100 mL of bloody output since the patient arrived from the operating room. Cardiac output is at 3.4 with an index of 1.9. No pressors. Pulmonary artery pressures are 22/11. Hemodynamically stable with adequate urine output of 30 mL an hour. No other significant events. Cardiac rhythmwith a rate of 80. No other significant comorbidities. No history of any coronary artery disease. She had severe aortic regurgitation and she was quite symptomatic preoperatively. Review of Systems ROS unobtainable: due to endotracheal tube Past Medical History Past Medical History: GERD/Reflux, Osteoarthritis (OA) Additional Past Medical History / Comment(s): bronchitis 3-4 years ago, gets nose bleeds(has had bleeds cauterized), seasonal allergies, migraines,colitis in her 30's and 40's hiatal hernia, duodenal ulcers 1988, SOB w/exertion History of Any Multi-Drug Resistant Organisms: None Reported Past Surgical History: Adenoidectomy, Appendectomy, Cholecystectomy, Heart Catheterization, Hysterectomy, Orthopedic Surgery, Tonsillectomy Additional Past Surgical History / Comment(s): lizzy breast and cervical bx,egd/colonoscopy, bunionectomy, lizzy cataracts removed Past Anesthesia/Blood Transfusion Reactions: Motion Sickness, Postoperative Nausea & Vomiting (PONV) Smoking Status: Former smoker - Past Family History Father Family Medical History: Diabetes Mellitus, Myocardial Infarction ([place]) Additional Family Medical History / Comment(s): first mi age 48 then had massive mi at age 52() Mother Family Medical History: Congestive Heart Failure (CHF) Additional Family Medical History / Comment(s): c-diff, mental issues Medications and Allergies Home Medications Medication Instructions Recorded Confirmed Type Meclizine [Antivert] 25 mg PO TID PRN 06/14/15 03/22/21 History Theratears 1 drop BOTH EYES QAM 06/14/15 03/22/21 History cycloSPORINE 0.05% OPHTH SOLN 1 applicator BOTH EYES HS 06/14/15 03/22/21 History [Restasis] Famotidine [Pepcid] 20 mg PO W/SUPPER 12/28/20 03/22/21 History Magnesium 250 mg PO DAILY 12/28/20 03/22/21 History Omeprazole [PriLOSEC] 40 mg PO QAM 01/15/21 03/22/21 History Olopatadine HCl [Pataday] 1 drop BOTH EYES DIRECTED 03/13/21 03/22/21 History hydrALAZINE HCL [Apresoline] 25 mg PO BID 03/13/21 03/22/21 History valACYclovir HCL [Valtrex] 1,000 mg PO DAILY PRN 03/13/21 03/22/21 History Mupirocin 2% Oint [Bactroban 2% 1 applic NASAL BID #22 gm 03/15/21 03/22/21 Rx Oint] ALPRAZolam [Xanax] 0.5 tab PO DAILY PRN 03/22/21 03/22/21 History Aspirin 325 mg PO ONCE 03/22/21 03/22/21 History Allergies Allergy/AdvReac Type Severity Reaction Status Date / Time amoxicillin trihydrate AdvReac Nausea & Verified 03/22/21 06:42 [From Amoxil] Vomiting & Diarrhea clarithromycin AdvReac Nausea & Verified 03/22/21 06:42 Vomiting & Diarrhea Physical Exam Vitals: Vital Signs Temp Pulse Resp BP BP Pulse Ox 03/22/21 07:07 98.6 F 73 18 164/74 184/77 100 Intake and Output 03/21/21 03/22/21 03/22/21 22:59 06:59 14:59 Intake Total 103 Output Total 1075 Balance -972 Intake: IV 103 Output: Urine 650 Estimated Blood Loss 425 Other: Weight 54.5 kg 54.5 kg Gen. appearance, sedated, comfortable, orotracheal and orogastric tube are both in place Head exam was generally normal. There was no scleral icterus or corneal arcus. Mucous membranes were moist. Neck was supple and without jugular venous distension, thyromegaly, or carotid bruits. Carotids were easily palpable bilaterally. There was no adenopathy. The patient has a right IJ Jal-Bijan catheter in place Lungs of the equal and symmetrical bilaterally. The patient has 2 mediastinal chest tubes. Sternum stable clean and intact. Cardiac exam revealed the PMI to be normally situated and sized. The rhythm was regular and no extrasystoles were noted during several minutes of auscultation. The first and second heart sounds were normal and physiologic splitting of the second heart sound was noted. There were no murmurs, rubs, clicks, or gallops. Abdominal exam revealed normal bowel sounds. The abdomen was soft, non-tender, and without masses, organomegaly, or appreciable enlargement of the abdominal aorta. Examination of the extremities revealed easily palpable radial, femoral and pedal pulses. There was no cyanosis, clubbing or edema. Examination of the skin revealed no evidence of significant rashes, suspicious appearing nevi or other concerning lesions. Neurologically the patient is sedated. Results - Laboratory Findings CBC and BMP: 03/22/21 12:50 ABG ABG pH 7.37 (7.35-7.45) 03/22/21 10:36 ABG pCO2 44 mmHg (35-45) 03/22/21 10:36 ABG pO2 322 mmHg (83-108) H 03/22/21 10:36 ABG O2 Saturation 100.0 % (94-97) H 03/22/21 10:36 Abnormal lab findings: Abnormal Labs 03/13/21 03/22/21 03/22/21 09:00 08:32 09:36 RBC Hgb Hct Plt Count ABG pO2 330 H 314 H ABG HCO3 26 H 26 H ABG Total CO2 28 H 27 H ABG O2 Saturation 100.0 H 100.0 H ABG Hematocrit ABG Ionized Calcium ABG Glucose 100 H 117 H Hemoglobin POC Glucose (mg/dL) Arterial Blood Glucose 100 H 117 H Crossmatch See Detail 03/22/21 03/22/21 03/22/21 10:10 10:36 12:48 RBC Hgb Hct Plt Count ABG pO2 >420 H 322 H ABG HCO3 ABG Total CO2 26 H 27 H ABG O2 Saturation 100.0 H 100.0 H ABG Hematocrit 25 L 24 L ABG Ionized Calcium 4.2 L 4.3 L ABG Glucose 122 H 131 H Hemoglobin 8.0 L 7.8 L POC Glucose (mg/dL) 138 H Arterial Blood Glucose 122 H 131 H Crossmatch 03/22/21 12:50 RBC 3.24 L Hgb 10.2 L Hct 31.2 L Plt Count 143 L ABG pO2 ABG HCO3 ABG Total CO2 ABG O2 Saturation ABG Hematocrit ABG Ionized Calcium ABG Glucose Hemoglobin POC Glucose (mg/dL) Arterial Blood Glucose Crossmatch - Diagnostic Findings Chest x-ray: image reviewed Assessment and Plan Plan: 1 aortic valve replacement. The patient is currently postop day #0. Surgery was done for severe symptomatic aortic regurgitation. Currently hemodynamically stable, intubated on a mechanical ventilator 2 acute hypoxic respiratory failure, expected outcome of surgery, currently intubated on a mechanical ventilator. The patient is also hemodynamically stable and the patient has 2 mediastinal chest tube placed 3 symptomatic valvular heart disease with severe aortic regurgitation 4 hyperlipidemia 5 preserved LV function with an ejection fraction of 50-55% preoperatively. 6 history of duodenal ulcers 7 history of migraines Plan The sedation for now Check blood gases Wean FiO2 further to maintain a saturation above 90%. Increase the respiratory rate up to 20. Monitor the output from the chest tube Monitor cardiac output Anticipate extubation within next few hours.
[2021-03-22 13:15] LABS: INR 1.2 (<1.2); Partial Thromboplastin Time 28.4 sec (22.0-30.0); Prothrombin Time 12.1 sec (9.0-12.0)
[2021-03-22 13:26] LABS: ALT 141 U/L (4-34); AST 395 U/L (14-36); African American GFR (CKD) >90 (>60 ml/min/1.73 sqM); Albumin 2.4 g/dL (3.5-5.0); Alkaline Phosphatase 53 U/L (38-126); Anion Gap 3 mmol/L; Blood Urea Nitrogen 13 mg/dL (7-17); Calcium 8.7 mg/dL (8.4-10.2); Carbon Dioxide 23 mmol/L (22-30); Chloride 111 mmol/L (98-107); Glucose 138 mg/dL (74-99); Magnesium 2.9 mg/dL (1.6-2.3); Non-African American GFR(CKD) 90 (>60 ml/min/1.73 sqM); Potassium 4.1 mmol/L (3.5-5.1); Sodium 137 mmol/L (137-145); Total Protein 4.3 g/dL (6.3-8.2)
--- NOTE | 2021-03-22 13:37 | OP ---
OPERATIVE REPORT DATE OF SURGERY: 03/22/2021. SURGEON: Dr. Sidney Gilliland. ASSISTANTS: 1. Romeo Zamudio, Nurse Practitioner. 2. JOJO Davis. PREOPERATIVE DIAGNOSES: 1. Severe aortic valve regurgitation. 2. Hyperlipidemia. 3. Arthritis. 4. Epistaxis. POSTOPERATIVE DIAGNOSES: 1. Severe aortic valve regurgitation. 2. Hyperlipidemia. 3. Arthritis. 4. Epistaxis. PROCEDURE: 1. Aortic valve replacement using a 21 mm pericardial bioprosthesis Inspiris. 2. Excision of the left atrial appendage using a 35 mm AtriClip. 3. Intraoperative transesophageal echocardiogram and epiaortic scanning. INDICATION FOR SURGERY: The patient is a 70-year-old lady with known and documented aortic valve regurgitation that was judged as severe. The patient started experiencing dyspnea on exertion and fatigue over the last one year with some atypical chest pain. Cardiac catheterization ruled out any significant coronary artery disease. Patient was brought in today for aortic valve replacement. There would be no attempt to do an aortic valve repair at her age, essentially since her pathology seems to be some nodular retraction of leaflets. The risks, including the STS risk, were discussed with her. She understood them and agreed to proceed. DESCRIPTION OF THE PROCEDURE: With the patient in supine position in the preoperative holding area, right internal jugular Ardara-Bijan catheter and right radial arterial line were placed. The patient had a cardiac index of 2.6 and PA pressure of 30/12. Subsequently she was brought to the operating room, where general endotracheal anesthesia was induced uneventfully. Gross catheter was inserted. The patient received 2 grams of cefazolin intravenously. The chest, abdomen and both lower extremities were prepped and draped using ChloraPrep. Ioban was used to cover the skin. Transesophageal echocardiogram confirmed the preoperative finding of dilated left ventricle, mild left ventricular dysfunction, severe aortic valve regurgitation and trace mitral valve regurgitation. A midline sternotomy was performed and no bone wax was used. I only used Ostene. I made a small breach in the left pleura at the end of the case, as there was a small left pneumothorax, but the left pleura was not drained. The right pleura remained intact. An Ankeney retractor was used. Mediastinal fat was transected between 2 ties and epiaortic scanning revealed no protruding atheroma in the ascending aorta. Pericardium was opened in an inverted T-fashion and a pericardial cradle was created. Findings included a mildly dilated aorta and a mildly dilated heart. After systemic heparinization, after placement of respective pledgeted pursestrings, aortic cannulation with a 21-[place] Soft flow cannula and venous cannulation via the right atrial appendage with a 3-stage 29-[place] cannula were performed. Antegrade as well as retrograde cardioplegia catheters were placed. Cardiopulmonary bypass was initiated and patient's temperature was allowed to drift down to 34 degrees Celsius. There was good decompression of the heart after clamping the aorta, then antegrade cardioplegia of around 500 mL was given, with slowing down of the activity but no full arrest in view of aortic valve regurgitation. This was followed with another 500 mL of retrograde cold blood cardioplegia with adequate arrest. We started by excluding the left atrial appendage by deploying a 35 mm AtriClip at its base. The aorta was opened in a transverse fashion 1 cm above the sinotubular junction over around 2/3 of its circumference. Exploration revealed retracted aortic valve leaflets and normal left and right sinuses and a mildly dilated noncoronary sinus. The aortic wall was not thinned out. The coronary ostiae were relatively high . The aortic valve was excised and sized to a 21 mm Inspiris pericardial bioprosthesis. Note that the LVOT was relatively narrow and I didn't believe the situation warranter annular enlargement in this as we were achieving more than 0.8 cm2/m2 EOA with that particular i.e INSPIRIS size. A total of 13sutures of Tycron 2-0 pledgeted on the ventricular side were placed in a horizontal mattress fashion. Those were passed symmetrically into an Inspiris 21 mm pericardial bioprosthesis, which seated nicely in a supra-annular position. All the needles were cut and the suture tied using the CorKnot device. Both coronary ostia were clear and high compared to the cuff of the prosthesis. Thorough irrigation was performed. CO2 was flowing over the field as long as the aorta was opened. At this point, satisfied, the re-warming was started as we closed the aorta in 2 layers using 4-0 Prolene pledgeted on each corner with the first layer in a horizontal mattress fashion and the second layer in an [id number] technique. A total of about 600 mL of warm blood was given via the retrograde route as well as on the second layer on the aorta. Patient was given lidocaine and magnesium. The patient was placed in Trendelenburg position. De-airing maneuvers were followed before unclamping the aorta. The patient regained spontaneous sinus rhythm and was bradycardic, which was her baseline. Two monopolar atrial pacing wires were affixed to the respective pursestrings of the right atrium and bipolar ventricular pacing wire was driven via the inferior aspect of the right ventricle. After around 15 minutes of reperfusion, we were able to wean off cardiopulmonary bypass without the need of any inotropic or vasopressor support. LULU interrogation at this point revealed a well-seated valve with essentially no paravalvular leak and a mean gradient of around 13 mmHg. There was adequate de- airing. The heart was dilated, but the left ventricle function was good. With that, all pump suckers were stopped. Test-dose then full-dose protamine was given. Decannulation followed. The venous cannulation site was reinforced with 4-0 Prolene. Two 19-[place] Matt drains were left substernally. Pericardium was closed over the heart and the aorta. After ensuring adequate hemostasis and hemodynamics and after correct sponge, instrument and needle counts, the sternum was closed using 6 interrupted stainless steel wires after interposing Fibrillar between the sternal edges. Thorough irrigation with cefazolin. The rest of the closure proceeded in layers. Skin glue was applied. Patient did not receive any blood bank product but received 270 mL of Cell Saver blood. She was transferred to the ICU in stable condition, atrially paced at 80 for better hemodynamics with a PA pressure of 25/12, cardiac index of 3, mean arterial pressure of 73 with a normal EKG. MMODL / IJN: [id number] / [facility]
--- NOTE | 2021-03-22 14:33 | P.CONS ---
History of Present Illness - History of Present Illness Patient is a 62-year-old female status post aortic valve replacement postopera tive day 0. Patient is presently intubated most probably will be extubated today. Patient is presently off nitroglycerin drip and norepinephrine drip. Patient is presently on propofol drip which is being weaned off and patient is on mechanical ventilator with assist-control ventilation set up respiratory rate of 12 and PEEP of 5, FiO2 of 80%. Patient has 2 mediastinal chest tubes patient has fairly good urine output. Pulmonary arterial pressures are 22/11 REVIEW OF SYSTEMS: Unable to obtain due to her clinical condition patient is postoperative and is intubated. PHYSICAL EXAMINATION: GENERAL: She is intubated sedated HEENT: Pupils are round and equally reacting to light. EOMI. No scleral icterus. No conjunctival pallor. Normocephalic, atraumatic. No pharyngeal erythema. No thyromegaly. CARDIOVASCULAR: S1 and S2 present. No murmurs, rubs, or gallops. PULMONARY: Chest is clear to auscultation, no wheezing or crackles. She has 2 mediastinal chest tubes ABDOMEN: Soft, nontender, nondistended, normoactive bowel sounds. No palpable organomegaly. MUSCULOSKELETAL: No joint swelling or deformity. EXTREMITIES: No cyanosis, clubbing, or pedal edema. NEUROLOGICAL: Sedated, arousable SKIN: No rashes. Assessment and plan -Status post aortic valve replacement and postoperative hypoxic respiratory failure: Patient is presently intubated patient is in minimal and settings. Patient probably will be extubated shortly. Patient's hemoglobin A1c is 5.7 which was done this month. Patient is not diabetic -Symptomatic aortic valve regurgitation for which patient had severe aortic regurgitation next and-hyperlipidemia -Gastroesophageal reflux disease -History of migraines DVT prophylaxis: As per primary service Past Medical History Past Medical History: GERD/Reflux, Osteoarthritis (OA) Additional Past Medical History / Comment(s): bronchitis 3-4 years ago, gets nose bleeds(has had bleeds cauterized), seasonal allergies, migraines,colitis in her 30's and 40's hiatal hernia, duodenal ulcers 1988, SOB w/exertion History of Any Multi-Drug Resistant Organisms: None Reported Past Surgical History: Adenoidectomy, Appendectomy, Cholecystectomy, Heart Catheterization, Hysterectomy, Orthopedic Surgery, Tonsillectomy Additional Past Surgical History / Comment(s): lizzy breast and cervical bx,egd/colonoscopy, bunionectomy, lizzy cataracts removed Past Anesthesia/Blood Transfusion Reactions: Motion Sickness, Postoperative Nausea & Vomiting (PONV) Smoking Status: Former smoker - Past Family History Father Family Medical History: Diabetes Mellitus, Myocardial Infarction ([place]) Additional Family Medical History / Comment(s): first mi age 48 then had massive mi at age 52() Mother Family Medical History: Congestive Heart Failure (CHF) Additional Family Medical History / Comment(s): c-diff, mental issues Medications and Allergies Home Medications Medication Instructions Recorded Confirmed Type Meclizine [Antivert] 25 mg PO TID PRN 06/14/15 03/22/21 History Theratears 1 drop BOTH EYES QAM 06/14/15 03/22/21 History cycloSPORINE 0.05% OPHTH SOLN 1 applicator BOTH EYES HS 06/14/15 03/22/21 History [Restasis] Famotidine [Pepcid] 20 mg PO W/SUPPER 12/28/20 03/22/21 History Magnesium 250 mg PO DAILY 12/28/20 03/22/21 History Omeprazole [PriLOSEC] 40 mg PO QAM 01/15/21 03/22/21 History Olopatadine HCl [Pataday] 1 drop BOTH EYES DIRECTED 03/13/21 03/22/21 History hydrALAZINE HCL [Apresoline] 25 mg PO BID 03/13/21 03/22/21 History valACYclovir HCL [Valtrex] 1,000 mg PO DAILY PRN 03/13/21 03/22/21 History Mupirocin 2% Oint [Bactroban 2% 1 applic NASAL BID #22 gm 03/15/21 03/22/21 Rx Oint] ALPRAZolam [Xanax] 0.5 tab PO DAILY PRN 03/22/21 03/22/21 History Aspirin 325 mg PO ONCE 03/22/21 03/22/21 History Allergies Allergy/AdvReac Type Severity Reaction Status Date / Time amoxicillin trihydrate AdvReac Nausea & Verified 03/22/21 06:42 [From Amoxil] Vomiting & Diarrhea clarithromycin AdvReac Nausea & Verified 03/22/21 06:42 Vomiting & Diarrhea Physical Exam Vitals: Vital Signs Temp Pulse Pulse Resp BP BP BP 03/22/21 14:00 79 20 115/88 03/22/21 13:30 80 20 03/22/21 13:00 80 12 115/88 03/22/21 12:36 80 16 03/22/21 07:07 98.6 F 73 18 164/74 184/77 Pulse Ox 03/22/21 14:00 100 03/22/21 13:30 100 03/22/21 13:00 100 03/22/21 12:36 03/22/21 07:07 100 Intake and Output 03/21/21 03/22/21 03/22/21 22:59 06:59 14:59 Intake Total 263 Output Total 1075 Balance -812 Intake: IV 263 0.9 100 CO/CI 60 Output: Urine 650 Estimated Blood Loss 425 Other: Weight 54.5 kg 54.5 kg ABP, PAP, CO, CI - Last 8 Hours Arterial Blood Pressure 119/76 Arterial Blood Pressure 131/84 Arterial Blood Pressure 116/74 Pulmonary Artery Pressure 20/10 Pulmonary Artery Pressure 20/10 Pulmonary Artery Pressure 21/7 Cardiac Output 3.1 Cardiac Output 3.1 Cardiac Output 3 Cardiac Index 2 Cardiac Index 2 Cardiac Index 1.9 Results CBC & Chem 7: 03/22/21 12:50 03/22/21 12:50 Labs: Abnormal Lab Results - Last 24 Hours (Table) 03/13/21 03/22/21 03/22/21 Range/Units 09:00 08:32 09:36 RBC (3.80-5.40) m/uL Hgb (11.4-16.0) gm/dL Hct (34.0-46.0) % Plt Count (150-450) k/uL PT (9.0-12.0) sec INR (<1.2) ABG pO2 330 H 314 H (83-108) mmHg ABG HCO3 26 H 26 H (21-25) mmol/L ABG Total CO2 28 H 27 H (19-24) mmol/L ABG O2 Saturation 100.0 H 100.0 H (94-97) % ABG Hematocrit (34.0-46.0) % ABG Ionized Calcium (4.5-5.3) mg/dL ABG Glucose 100 H 117 H (75-99) mg/dL Hemoglobin (11.4-16.0) gm/dL Chloride (98-107) mmol/L Glucose (74-99) mg/dL POC Glucose (mg/dL) (75-99) mg/dL Ionized Calcium Aidan (4.5-5.3) mg/dL Magnesium (1.6-2.3) mg/dL AST (14-36) U/L ALT (4-34) U/L Total Protein (6.3-8.2) g/dL Albumin (3.5-5.0) g/dL Arterial Blood Glucose 100 H 117 H (75-99) mg/dL Crossmatch See Detail 03/22/21 03/22/21 03/22/21 Range/Units 10:10 10:36 12:48 RBC (3.80-5.40) m/uL Hgb (11.4-16.0) gm/dL Hct (34.0-46.0) % Plt Count (150-450) k/uL PT (9.0-12.0) sec INR (<1.2) ABG pO2 >420 H 322 H (83-108) mmHg ABG HCO3 (21-25) mmol/L ABG Total CO2 26 H 27 H (19-24) mmol/L ABG O2 Saturation 100.0 H 100.0 H (94-97) % ABG Hematocrit 25 L 24 L (34.0-46.0) % ABG Ionized Calcium 4.2 L 4.3 L (4.5-5.3) mg/dL ABG Glucose 122 H 131 H (75-99) mg/dL Hemoglobin 8.0 L 7.8 L (11.4-16.0) gm/dL Chloride (98-107) mmol/L Glucose (74-99) mg/dL POC Glucose (mg/dL) 138 H (75-99) mg/dL Ionized Calcium Aidan (4.5-5.3) mg/dL Magnesium (1.6-2.3) mg/dL AST (14-36) U/L ALT (4-34) U/L Total Protein (6.3-8.2) g/dL Albumin (3.5-5.0) g/dL Arterial Blood Glucose 122 H 131 H (75-99) mg/dL Crossmatch 03/22/21 03/22/21 03/22/21 Range/Units 12:50 12:50 12:50 RBC 3.24 L (3.80-5.40) m/uL Hgb 10.2 L (11.4-16.0) gm/dL Hct 31.2 L (34.0-46.0) % Plt Count 143 L (150-450) k/uL PT 12.1 H (9.0-12.0) sec INR 1.2 H (<1.2) ABG pO2 (83-108) mmHg ABG HCO3 (21-25) mmol/L ABG Total CO2 (19-24) mmol/L ABG O2 Saturation (94-97) % ABG Hematocrit (34.0-46.0) % ABG Ionized Calcium (4.5-5.3) mg/dL ABG Glucose (75-99) mg/dL Hemoglobin (11.4-16.0) gm/dL Chloride 111 H (98-107) mmol/L Glucose 138 H (74-99) mg/dL POC Glucose (mg/dL) (75-99) mg/dL Ionized Calcium Aidan 5.5 H (4.5-5.3) mg/dL Magnesium 2.9 H (1.6-2.3) mg/dL AST 395 H (14-36) U/L ALT 141 H (4-34) U/L Total Protein 4.3 L (6.3-8.2) g/dL Albumin 2.4 L (3.5-5.0) g/dL Arterial Blood Glucose (75-99) mg/dL Crossmatch
[2021-03-22 14:39] LABS: Glucose,Whole Blood 149 mg/dL (75-99)
[2021-03-22] MEDS: IPRATROPIUM-ALBUTEROL 3 ML NEB INHALATION SCH ×3 (14:51→20:40)
[2021-03-22] MEDS ORDERED: MUPIROCIN 2% OINT 22 GM TUBE NASAL ONE (15:00)
[2021-03-22] MEDS ORDERED: ALPRAZolam 0.25 MG TAB PO PRN (15:16)
[2021-03-22 15:39] LABS: Glucose,Whole Blood 209 mg/dL (75-99)
[2021-03-22 16:00] LABS: Basophils % (A) 0 %; Eosinophils # (A) 0.1 k/uL (0-0.7); Eosinophils % (A) 1 %; HCT 31.8 % (34.0-46.0); HGB 10.4 gm/dL (11.4-16.0); Lymphocytes # (A) 1.1 k/uL (1.0-4.8); Lymphocytes % (A) 10 %; MCH 31.5 pg (25.0-35.0); MCHC 32.7 g/dL (31.0-37.0); MCV 96.2 fL (80.0-100.0); Mean Platelet Volume 7.5; Monocytes # (A) 0.4 k/uL (0-1.0); Monocytes % (A) 4 %; Neutrophils # (A) 9.5 k/uL (1.3-7.7); Neutrophils % (A) 85 %; Platelet Count 162 k/uL (150-450); WBC 11.1 k/uL (3.8-10.6)
[2021-03-22 16:38] LABS: Glucose,Whole Blood 204 mg/dL (75-99)
[2021-03-22] MEDS: HEPARIN SODIUM,PORCINE/PF 5,000 UNIT/0.5 ML SYRINGE SQ SCH (16:48)
[2021-03-22] MEDS: ACETAMINOPHEN IV (For NPO) 1,000 MG in EMPTY BAG 1 BAG IVPB SCH (16:48)
[2021-03-22 17:21] LABS: Glucose,Whole Blood 163 mg/dL (75-99)
[2021-03-22 17:32] LABS: Potassium 3.8 mmol/L (3.5-5.1)
[2021-03-22 18:12] LABS: Glucose,Whole Blood 118 mg/dL (75-99)
[2021-03-22] MEDS ORDERED: POTASSIUM CHLORIDE 20 MEQ in WATER FOR INJECTION 1 100ML.BAG IVPB STA (18:19)
[2021-03-22 19:05] LABS: Basophils % (A) 0 %; Eosinophils % (A) 0 %; HCT 30.6 % (34.0-46.0); Lymphocytes # (A) 0.5 k/uL (1.0-4.8); Lymphocytes % (A) 4 %; MCH 31.5 pg (25.0-35.0); MCHC 32.8 g/dL (31.0-37.0); Mean Platelet Volume 7.2; Monocytes # (A) 0.3 k/uL (0-1.0); Monocytes % (A) 3 %; Neutrophils # (A) 9.7 k/uL (1.3-7.7); Neutrophils % (A) 92 %; Platelet Count 158 k/uL (150-450); RBC 3.18 m/uL (3.80-5.40); RDW 13.1 % (11.5-15.5); WBC 10.5 k/uL (3.8-10.6)
[2021-03-22 19:08] LABS: Glucose,Whole Blood 94 mg/dL (75-99)
[2021-03-22 20:07] LABS: Glucose,Whole Blood 110 mg/dL (75-99)
[2021-03-22] MEDS: KETOTIFEN 0.025% OPHTH DROPS 5 ML BTL BOTH EYES SCH (20:33)
[2021-03-22] MEDS: cycloSPORINE 0.05% OPHTH 0.4 ML DROPERETTE BOTH EYES SCH (20:33)
[2021-03-22 21:15] LABS: Glucose,Whole Blood 144 mg/dL (75-99)
[2021-03-22] MEDS: MUPIROCIN 2% OINT 22 GM TUBE NASAL SCH (21:15)
[2021-03-22 22:02] LABS: Glucose,Whole Blood 163 mg/dL (75-99)
[2021-03-22 22:58] LABS: Glucose,Whole Blood 139 mg/dL (75-99)
[2021-03-23] MEDS: HEPARIN SODIUM,PORCINE/PF 5,000 UNIT/0.5 ML SYRINGE SQ SCH ×3 (00:02→17:32)
[2021-03-23] MEDS: ACETAMINOPHEN IV (For NPO) 1,000 MG in EMPTY BAG 1 BAG IVPB SCH (00:02)
[2021-03-23] MEDS ORDERED: HYDROcodone/APAP 5-325MG 1 EACH TAB PO PRN ×2 (00:06)
[2021-03-23 00:25] LABS: Glucose,Whole Blood 105 mg/dL (75-99)
[2021-03-23 01:16] LABS: Glucose,Whole Blood 117 mg/dL (75-99)
[2021-03-23 02:14] LABS: Glucose,Whole Blood 129 mg/dL (75-99)
[2021-03-23 03:06] LABS: Glucose,Whole Blood 132 mg/dL (75-99)
[2021-03-23 04:09] LABS: Glucose,Whole Blood 124 mg/dL (75-99)
[2021-03-23 04:22] LABS: Basophils % (A) 0 %; Eosinophils % (A) 0 %; HCT 28.6 % (34.0-46.0); HGB 9.3 gm/dL (11.4-16.0); Lymphocytes # (A) 0.5 k/uL (1.0-4.8); Lymphocytes % (A) 5 %; MCH 31.7 pg (25.0-35.0); MCHC 32.6 g/dL (31.0-37.0); MCV 97.3 fL (80.0-100.0); Mean Platelet Volume 7.8; Monocytes # (A) 0.3 k/uL (0-1.0); Monocytes % (A) 3 %; Neutrophils # (A) 9.1 k/uL (1.3-7.7); Neutrophils % (A) 91 %; Platelet Count 138 k/uL (150-450); RBC 2.94 m/uL (3.80-5.40); RDW 13.2 % (11.5-15.5)
[2021-03-23 04:27] LABS: Ionized Calcium 5.6 mg/dL (4.5-5.3)
[2021-03-23 04:35] LABS: ALT 299 U/L (4-34); AST 461 U/L (14-36); African American GFR (CKD) >90 (>60 ml/min/1.73 sqM); Albumin 3.1 g/dL (3.5-5.0); Alkaline Phosphatase 63 U/L (38-126); Anion Gap 5 mmol/L; Blood Urea Nitrogen 11 mg/dL (7-17); Calcium 8.8 mg/dL (8.4-10.2); Carbon Dioxide 21 mmol/L (22-30); Chloride 111 mmol/L (98-107); Glucose 128 mg/dL (74-99); Magnesium 2.2 mg/dL (1.6-2.3); Non-African American GFR(CKD) >90 (>60 ml/min/1.73 sqM); Sodium 137 mmol/L (137-145); Total Bilirubin 0.6 mg/dL (0.2-1.3); Total Protein 5.1 g/dL (6.3-8.2)
[2021-03-23 05:12] LABS: Glucose,Whole Blood 111 mg/dL (75-99)
[2021-03-23 06:29] LABS: Glucose,Whole Blood 132 mg/dL (75-99)
[2021-03-23] MEDS: ALBUMIN HUMAN 5% 250 ML in EMPTY BAG 1 BAG IVPB PRN ×3 (06:44→13:13)
[2021-03-23 07:08] LABS: Glucose,Whole Blood 129 mg/dL (75-99)
[2021-03-23] MEDS ORDERED: ACETAMINOPHEN TAB 325 MG TAB PO PRN (07:22)
--- NOTE | 2021-03-23 07:49 | P.PN ---
Subjective Progress Note Date: 03/23/21 Principal diagnosis: Severe aortic valve regurgitation. Previous history of hypertension, hyperlipidemia, previous tobacco dependence, arthritis, periodic epistaxis with previous cauterization, hiatal hernia, previous duodenal ulcers, moderate EtOH use 2-7 drinks per week, and family history of premature coronary artery disease with father from [place] at 52. Vaccinated against Covid with J&J vaccine in August 2020 POD #1 aortic valve replacement using a 21 mm Inspiris pericardial bioprosthesis, exclusion of the left atrial appendage using a 35 mm AtriClip, intraoperative transesophageal echocardiogram and epi-aortic scanning Postoperative acute blood loss anemia and thrombocytopenia, expected given hemodilution in cardiopulmonary bypass pump Elevated transaminases, expected The patient was seen and examined this morning in the intensive care unit, sitting up in a recliner in no acute distress. She was successfully extubated yesterday at 16:50. She does complain of post surgical chest pain, denies shortness of breath, she did have some nausea this morning which resolved with Zofran. Remains in sinus rhythm, hemodynamically stable on no inotropes or p ressors. Right internal jugular [place]/Cordis, right radial arterial line, mediastinal chest tubes present. She had a relatively uneventful night, no other new concerns. Objective - Vital Signs Vital signs: Vital Signs Temp 98.9 F 03/22/21 16:00 Pulse 82 03/23/21 07:00 Resp 19 03/23/21 07:00 BP 116/72 03/23/21 04:00 Pulse Ox 100 03/23/21 07:00 Intake & Output 03/22/21 03/23/21 03/23/21 18:59 06:59 18:59 Intake Total 300.719 9175.601 Output Total 1945 855 Balance -1305.940 512.601 Weight 54.5 kg 57.8 kg Intake: IV 618 1138 0.9 300 550 ACETAMINOPHEN IV (For NPO 100 ) 1,000 mg In Empty Bag 1 bag @ 400 mls/hr IVPB Q6HR MARCELO Rx#:[id number] CO/CI 170 330 Pressure Bag 45 108 ceFAZolin 2 gm In Sodium 50 Chloride 0.9% 50 ml @ 100 mls/hr IVPB Q8HR MARCELO Rx# :[id number] Intake, IV Titration 21.060 29.601 Amount Clevidipine Butyrate 25 16.134 mg In Empty Bag 1 bag @ 1 MG/HR 2 mls/hr IV .Q24H MARCELO Rx#:[id number] Dexmedetomidine/0.9% NaCl 0.341 (Pmx) 400 mcg In Empty Bag 1 bag @ Titrate IV . Q0M MARCELO Rx#:[id number] Insulin Regular 100 unit 11.455 13.467 In Sodium Chloride 0.9% 100 ml @ Per Protocol IV .Q0M MARCELO Rx#:[id number] propofoL 1,000 mg In 9.264 Empty Bag 1 bag @ Titrate IV .Q0M MARCELO Rx#: [id number] Oral 200 Output: Chest Tube Drainage 250 150 MS x2 250 150 Urine 1270 705 Estimated Blood Loss 425 Other: Voiding Method Indwelling Catheter Indwelling Catheter ABP, PAP, CO, CI - Last Documented Arterial Blood Pressure 128/68 Pulmonary Artery Pressure 21/8 Cardiac Output 4.4 Cardiac Index 2.8 - Exam CONSTITUTIONAL: Appears comfortable, cooperative, no acute distress RESPIRATORY: Lungs sounds diminished bilaterally. Respirations even, nonlabored. Currently on 2 L nasal cannula with oxygen saturation 100%. Able to achieve 500 mL on incentive spirometry. Weak cough. CARDIOVASCULAR: S1, S2 present. Regular rate and rhythm, sinus rhythm on telemetry. Sternum stable. Palpable peripheral pulses bilaterally. No edema present. No calf pain or tenderness noted. Heart hugger in place with patient demonstrating appropriate use. Antiembolism stockings, SCDs present. GASTROINTESTINAL: Abdomen soft, nontender, nondistended. Hypoactive bowel sounds present 4 quadrants. Tolerating clear liquids. Positive belching, negative flatus GENITOURINARY: Gross present draining clear, yellow urine. Output overnight 45-140 mL per hour, 1975 mL in the last 24 hours INTEGUMENTARY: Skin is warm and dry with evidence of good perfusion. Anterior chest incision well approximated and covered with dry intact dressing. NEUROLOGIC: Cranial nerves II through XII intact MUSKULOSKELETAL: Able to move all extremities, strength equal bilaterally, gait normal PSYCHIATRIC: Alert and oriented to person place and time, appropriate affect, intact judgment and insight INVASIVE LINES AND TUBES: Mediastinal chest tubes present and connected to wall suction, no air leaks present, 70 mL serosanguineous drainage overnight, 400 mL since surgery. A/V epicardial pacemaker wires present, grounded. Right internal jugular [place]/Cordis, right radial arterial line present. Last CO/CI 3.8/2.4, PA 18/7, CVP 1. - Allied health notes Allied health notes reviewed: nursing - Labs CBC & Chem 7: 03/23/21 04:06 03/23/21 04:06 Labs: Abnormal Lab Results - Last 24 Hours (Table) 03/13/21 03/22/21 03/22/21 Range/Units 09:00 08:32 09:36 WBC (3.8-10.6) k/uL RBC (3.80-5.40) m/uL Hgb (11.4-16.0) gm/dL Hct (34.0-46.0) % Plt Count (150-450) k/uL Neutrophils # (1.3-7.7) k/uL Lymphocytes # (1.0-4.8) k/uL PT (9.0-12.0) sec INR (<1.2) ABG pO2 330 H 314 H (83-108) mmHg ABG HCO3 26 H 26 H (21-25) mmol/L ABG Total CO2 28 H 27 H (19-24) mmol/L ABG O2 Saturation 100.0 H 100.0 H (94-97) % ABG Hematocrit (34.0-46.0) % ABG Ionized Calcium (4.5-5.3) mg/dL ABG Glucose 100 H 117 H (75-99) mg/dL Hemoglobin (11.4-16.0) gm/dL Chloride (98-107) mmol/L Carbon Dioxide (22-30) mmol/L Glucose (74-99) mg/dL POC Glucose (mg/dL) (75-99) mg/dL Ionized Calcium Aidan (4.5-5.3) mg/dL Magnesium (1.6-2.3) mg/dL AST (14-36) U/L ALT (4-34) U/L Total Protein (6.3-8.2) g/dL Albumin (3.5-5.0) g/dL Arterial Blood Glucose 100 H 117 H (75-99) mg/dL Crossmatch See Detail 03/22/21 03/22/21 03/22/21 Range/Units 10:10 10:36 12:48 WBC (3.8-10.6) k/uL RBC (3.80-5.40) m/uL Hgb (11.4-16.0) gm/dL Hct (34.0-46.0) % Plt Count (150-450) k/uL Neutrophils # (1.3-7.7) k/uL Lymphocytes # (1.0-4.8) k/uL PT (9.0-12.0) sec INR (<1.2) ABG pO2 >420 H 322 H (83-108) mmHg ABG HCO3 (21-25) mmol/L ABG Total CO2 26 H 27 H (19-24) mmol/L ABG O2 Saturation 100.0 H 100.0 H (94-97) % ABG Hematocrit 25 L 24 L (34.0-46.0) % ABG Ionized Calcium 4.2 L 4.3 L (4.5-5.3) mg/dL ABG Glucose 122 H 131 H (75-99) mg/dL Hemoglobin 8.0 L 7.8 L (11.4-16.0) gm/dL Chloride (98-107) mmol/L Carbon Dioxide (22-30) mmol/L Glucose (74-99) mg/dL POC Glucose (mg/dL) 138 H (75-99) mg/dL Ionized Calcium Aidan (4.5-5.3) mg/dL Magnesium (1.6-2.3) mg/dL AST (14-36) U/L ALT (4-34) U/L Total Protein (6.3-8.2) g/dL Albumin (3.5-5.0) g/dL Arterial Blood Glucose 122 H 131 H (75-99) mg/dL Crossmatch 03/22/21 03/22/21 03/22/21 Range/Units 12:50 12:50 12:50 WBC (3.8-10.6) k/uL RBC 3.24 L (3.80-5.40) m/uL Hgb 10.2 L (11.4-16.0) gm/dL Hct 31.2 L (34.0-46.0) % Plt Count 143 L (150-450) k/uL Neutrophils # (1.3-7.7) k/uL Lymphocytes # (1.0-4.8) k/uL PT 12.1 H (9.0-12.0) sec INR 1.2 H (<1.2) ABG pO2 (83-108) mmHg ABG HCO3 (21-25) mmol/L ABG Total CO2 (19-24) mmol/L ABG O2 Saturation (94-97) % ABG Hematocrit (34.0-46.0) % ABG Ionized Calcium (4.5-5.3) mg/dL ABG Glucose (75-99) mg/dL Hemoglobin (11.4-16.0) gm/dL Chloride 111 H (98-107) mmol/L Carbon Dioxide (22-30) mmol/L Glucose 138 H (74-99) mg/dL POC Glucose (mg/dL) (75-99) mg/dL Ionized Calcium Aidan 5.5 H (4.5-5.3) mg/dL Magnesium 2.9 H (1.6-2.3) mg/dL AST 395 H (14-36) U/L ALT 141 H (4-34) U/L Total Protein 4.3 L (6.3-8.2) g/dL Albumin 2.4 L (3.5-5.0) g/dL Arterial Blood Glucose (75-99) mg/dL Crossmatch 03/22/21 03/22/21 03/22/21 Range/Units 14:38 15:37 15:55 WBC 11.1 H (3.8-10.6) k/uL RBC 3.30 L (3.80-5.40) m/uL Hgb 10.4 L (11.4-16.0) gm/dL Hct 31.8 L (34.0-46.0) % Plt Count (150-450) k/uL Neutrophils # 9.5 H (1.3-7.7) k/uL Lymphocytes # (1.0-4.8) k/uL PT (9.0-12.0) sec INR (<1.2) ABG pO2 (83-108) mmHg ABG HCO3 (21-25) mmol/L ABG Total CO2 (19-24) mmol/L ABG O2 Saturation (94-97) % ABG Hematocrit (34.0-46.0) % ABG Ionized Calcium (4.5-5.3) mg/dL ABG Glucose (75-99) mg/dL Hemoglobin (11.4-16.0) gm/dL Chloride (98-107) mmol/L Carbon Dioxide (22-30) mmol/L Glucose (74-99) mg/dL POC Glucose (mg/dL) 149 H 209 H (75-99) mg/dL Ionized Calcium Aidan (4.5-5.3) mg/dL Magnesium (1.6-2.3) mg/dL AST (14-36) U/L ALT (4-34) U/L Total Protein (6.3-8.2) g/dL Albumin (3.5-5.0) g/dL Arterial Blood Glucose (75-99) mg/dL Crossmatch 03/22/21 03/22/21 03/22/21 Range/Units 16:37 17:00 17:20 WBC (3.8-10.6) k/uL RBC (3.80-5.40) m/uL Hgb (11.4-16.0) gm/dL Hct (34.0-46.0) % Plt Count (150-450) k/uL Neutrophils # (1.3-7.7) k/uL Lymphocytes # (1.0-4.8) k/uL PT (9.0-12.0) sec INR (<1.2) ABG pO2 (83-108) mmHg ABG HCO3 (21-25) mmol/L ABG Total CO2 (19-24) mmol/L ABG O2 Saturation (94-97) % ABG Hematocrit (34.0-46.0) % ABG Ionized Calcium (4.5-5.3) mg/dL ABG Glucose (75-99) mg/dL Hemoglobin (11.4-16.0) gm/dL Chloride 111 H (98-107) mmol/L Carbon Dioxide (22-30) mmol/L Glucose (74-99) mg/dL POC Glucose (mg/dL) 204 H 163 H (75-99) mg/dL Ionized Calcium Aidan (4.5-5.3) mg/dL Magnesium (1.6-2.3) mg/dL AST (14-36) U/L ALT (4-34) U/L Total Protein (6.3-8.2) g/dL Albumin (3.5-5.0) g/dL Arterial Blood Glucose (75-99) mg/dL Crossmatch 03/22/21 03/22/21 03/22/21 Range/Units 18:11 18:50 20:04 WBC (3.8-10.6) k/uL RBC 3.18 L (3.80-5.40) m/uL Hgb 10.0 L (11.4-16.0) gm/dL Hct 30.6 L (34.0-46.0) % Plt Count (150-450) k/uL Neutrophils # 9.7 H (1.3-7.7) k/uL Lymphocytes # 0.5 L (1.0-4.8) k/uL PT (9.0-12.0) sec INR (<1.2) ABG pO2 (83-108) mmHg ABG HCO3 (21-25) mmol/L ABG Total CO2 (19-24) mmol/L ABG O2 Saturation (94-97) % ABG Hematocrit (34.0-46.0) % ABG Ionized Calcium (4.5-5.3) mg/dL ABG Glucose (75-99) mg/dL Hemoglobin (11.4-16.0) gm/dL Chloride (98-107) mmol/L Carbon Dioxide (22-30) mmol/L Glucose (74-99) mg/dL POC Glucose (mg/dL) 118 H 110 H (75-99) mg/dL Ionized Calcium Aidan (4.5-5.3) mg/dL Magnesium (1.6-2.3) mg/dL AST (14-36) U/L ALT (4-34) U/L Total Protein (6.3-8.2) g/dL Albumin (3.5-5.0) g/dL Arterial Blood Glucose (75-99) mg/dL Crossmatch 03/22/21 03/22/21 03/22/21 Range/Units 21:09 22:00 22:56 WBC (3.8-10.6) k/uL RBC (3.80-5.40) m/uL Hgb (11.4-16.0) gm/dL Hct (34.0-46.0) % Plt Count (150-450) k/uL Neutrophils # (1.3-7.7) k/uL Lymphocytes # (1.0-4.8) k/uL PT (9.0-12.0) sec INR (<1.2) ABG pO2 (83-108) mmHg ABG HCO3 (21-25) mmol/L ABG Total CO2 (19-24) mmol/L ABG O2 Saturation (94-97) % ABG Hematocrit (34.0-46.0) % ABG Ionized Calcium (4.5-5.3) mg/dL ABG Glucose (75-99) mg/dL Hemoglobin (11.4-16.0) gm/dL Chloride (98-107) mmol/L Carbon Dioxide (22-30) mmol/L Glucose (74-99) mg/dL POC Glucose (mg/dL) 144 H 163 H 139 H (75-99) mg/dL Ionized Calcium Aidan (4.5-5.3) mg/dL Magnesium (1.6-2.3) mg/dL AST (14-36) U/L ALT (4-34) U/L Total Protein (6.3-8.2) g/dL Albumin (3.5-5.0) g/dL Arterial Blood Glucose (75-99) mg/dL Crossmatch 03/23/21 03/23/21 03/23/21 Range/Units 00:21 01:14 02:11 WBC (3.8-10.6) k/uL RBC (3.80-5.40) m/uL Hgb (11.4-16.0) gm/dL Hct (34.0-46.0) % Plt Count (150-450) k/uL Neutrophils # (1.3-7.7) k/uL Lymphocytes # (1.0-4.8) k/uL PT (9.0-12.0) sec INR (<1.2) ABG pO2 (83-108) mmHg ABG HCO3 (21-25) mmol/L ABG Total CO2 (19-24) mmol/L ABG O2 Saturation (94-97) % ABG Hematocrit (34.0-46.0) % ABG Ionized Calcium (4.5-5.3) mg/dL ABG Glucose (75-99) mg/dL Hemoglobin (11.4-16.0) gm/dL Chloride (98-107) mmol/L Carbon Dioxide (22-30) mmol/L Glucose (74-99) mg/dL POC Glucose (mg/dL) 105 H 117 H 129 H (75-99) mg/dL Ionized Calcium Aidan (4.5-5.3) mg/dL Magnesium (1.6-2.3) mg/dL AST (14-36) U/L ALT (4-34) U/L Total Protein (6.3-8.2) g/dL Albumin (3.5-5.0) g/dL Arterial Blood Glucose (75-99) mg/dL Crossmatch 03/23/21 03/23/21 03/23/21 Range/Units 03:04 04:06 04:06 WBC (3.8-10.6) k/uL RBC 2.94 L (3.80-5.40) m/uL Hgb 9.3 L (11.4-16.0) gm/dL Hct 28.6 L (34.0-46.0) % Plt Count 138 L (150-450) k/uL Neutrophils # 9.1 H (1.3-7.7) k/uL Lymphocytes # 0.5 L (1.0-4.8) k/uL PT (9.0-12.0) sec INR (<1.2) ABG pO2 (83-108) mmHg ABG HCO3 (21-25) mmol/L ABG Total CO2 (19-24) mmol/L ABG O2 Saturation (94-97) % ABG Hematocrit (34.0-46.0) % ABG Ionized Calcium (4.5-5.3) mg/dL ABG Glucose (75-99) mg/dL Hemoglobin (11.4-16.0) gm/dL Chloride 111 H (98-107) mmol/L Carbon Dioxide 21 L (22-30) mmol/L Glucose 128 H (74-99) mg/dL POC Glucose (mg/dL) 132 H (75-99) mg/dL Ionized Calcium Aidan 5.6 H (4.5-5.3) mg/dL Magnesium (1.6-2.3) mg/dL AST 461 H (14-36) U/L ALT 299 H (4-34) U/L Total Protein 5.1 L (6.3-8.2) g/dL Albumin 3.1 L (3.5-5.0) g/dL Arterial Blood Glucose (75-99) mg/dL Crossmatch 03/23/21 03/23/21 03/23/21 Range/Units 04:06 05:11 06:28 WBC (3.8-10.6) k/uL RBC (3.80-5.40) m/uL Hgb (11.4-16.0) gm/dL Hct (34.0-46.0) % Plt Count (150-450) k/uL Neutrophils # (1.3-7.7) k/uL Lymphocytes # (1.0-4.8) k/uL PT (9.0-12.0) sec INR (<1.2) ABG pO2 (83-108) mmHg ABG HCO3 (21-25) mmol/L ABG Total CO2 (19-24) mmol/L ABG O2 Saturation (94-97) % ABG Hematocrit (34.0-46.0) % ABG Ionized Calcium (4.5-5.3) mg/dL ABG Glucose (75-99) mg/dL Hemoglobin (11.4-16.0) gm/dL Chloride (98-107) mmol/L Carbon Dioxide (22-30) mmol/L Glucose (74-99) mg/dL POC Glucose (mg/dL) 124 H 111 H 132 H (75-99) mg/dL Ionized Calcium Aidan (4.5-5.3) mg/dL Magnesium (1.6-2.3) mg/dL AST (14-36) U/L ALT (4-34) U/L Total Protein (6.3-8.2) g/dL Albumin (3.5-5.0) g/dL Arterial Blood Glucose (75-99) mg/dL Crossmatch 03/23/21 Range/Units 07:05 WBC (3.8-10.6) k/uL RBC (3.80-5.40) m/uL Hgb (11.4-16.0) gm/dL Hct (34.0-46.0) % Plt Count (150-450) k/uL Neutrophils # (1.3-7.7) k/uL Lymphocytes # (1.0-4.8) k/uL PT (9.0-12.0) sec INR (<1.2) ABG pO2 (83-108) mmHg ABG HCO3 (21-25) mmol/L ABG Total CO2 (19-24) mmol/L ABG O2 Saturation (94-97) % ABG Hematocrit (34.0-46.0) % ABG Ionized Calcium (4.5-5.3) mg/dL ABG Glucose (75-99) mg/dL Hemoglobin (11.4-16.0) gm/dL Chloride (98-107) mmol/L Carbon Dioxide (22-30) mmol/L Glucose (74-99) mg/dL POC Glucose (mg/dL) 129 H (75-99) mg/dL Ionized Calcium Aidan (4.5-5.3) mg/dL Magnesium (1.6-2.3) mg/dL AST (14-36) U/L ALT (4-34) U/L Total Protein (6.3-8.2) g/dL Albumin (3.5-5.0) g/dL Arterial Blood Glucose (75-99) mg/dL Crossmatch - Imaging and Cardiology Chest x-ray: image reviewed Assessment and Plan Assessment: 1. Severe aortic valve regurgitation, status post bioprosthetic aortic valve replacement 2. History of hypertension, treated 3. Hyperlipidemia, previously untreated, cholesterol 247, LDL 133 4. Previous tobacco dependence, preoperative FEV1 107% of predicted 5. Arthritis 6. Periodic epistaxis with previous cauterization by Dr. Hatfield 7. Hiatal hernia 8. Previous duodenal ulcers 9. Moderate EtOH use 2-7 drinks per week 10. Family history of premature coronary artery disease with father from [place] at 52 11. Postoperative acute blood loss anemia and thrombocytopenia, expected given hemodilution in cardiopulmonary bypass pump 12. Elevated transaminases, expected Plan: 1. Continue aspirin, statin, Plavix, beta chito therapy. Will increase beta chito therapy as tolerated. Will add in afterload reduction 2. Wean O2 as tolerated. Encourage incentive spirometry use 10 times every hour while awake. Bronchodilators per pulmonology 3. Increase activity, ambulate as tolerated. PT/OT/cardiac rehab consulted 4. Will monitor daily labs and x-rays. Electrolyte replacement protocol 5. GI/DVT prophylaxis 6. Pain control with current medication regimen. Toradol added 7. Insulin management per internal medicine. Patient is not diabetic with preoperative hemoglobin A1c 5.7%, does need tight blood sugar control to promote sternal union and prevent infection 8. Discontinue [place]. Connect Cordis to continuous CVP monitoring 9. Keep mediastinal chest tubes for another 24 hours 10. Keep Gross catheter for another 24 hours for strict accurate intake and output. Daily weights 11. More recommendations to follow based on patient's progress Time with Patient: Greater than 30
[2021-03-23] MEDS: IPRATROPIUM-ALBUTEROL 3 ML NEB INHALATION SCH ×4 (07:56→20:31)
--- NOTE | 2021-03-23 07:59 | XR ---
EXAMINATION TYPE: XR chest 1V portable DATE OF EXAM: 03/23/2021 COMPARISON: Chest x-ray 03/22/2021 HISTORY: Postop cardiac surgery, extubated TECHNIQUE: Single frontal view of the chest is obtained. FINDINGS: Patient is post median sternotomy and left atrial appendage clip placement, cardiac valve replacement. Epicardial pacing leads, overlying leads and artifacts are again noted. Median sternal d rains, right jugular central venous catheter are present and are overlying appropriate positions, end otracheal tube and NG tube have been removed. No evident pneumothorax. There is been interval develop ment of retrocardiac density, bibasilar increased attenuation. Cardiac mediastinal silhouette is stab le. There is blunting of the left chest phrenic angle. IMPRESSION: Interval extubation. Possible lower lobe atelectasis, difficult to exclude pleural effus ion, pneumonia
[2021-03-23 08:44] LABS: Glucose,Whole Blood 98 mg/dL (75-99)
[2021-03-23] MEDS: KETOROLAC 15 MG/ML 1 ML VIAL IVP SCH ×3 (08:54→17:32)
[2021-03-23] MEDS: KETOTIFEN 0.025% OPHTH DROPS 5 ML BTL BOTH EYES SCH ×2 (08:54→20:08)
[2021-03-23] MEDS: ASPIRIN 325 MG TAB PO SCH (08:55)
[2021-03-23] MEDS: ARTIFICIAL TEARS-HYPROMELLOSE DROPS 15 ML BTL BOTH EYES SCH (08:55)
[2021-03-23] MEDS: CLOPIDOGREL 75 MG TAB PO SCH (08:55)
[2021-03-23] MEDS: MUPIROCIN 2% OINT 22 GM TUBE NASAL SCH ×2 (08:55→20:07)
[2021-03-23] MEDS: METOPROLOL TARTRATE 12.5 MG TAB PO SCH ×2 (08:55→20:07)
[2021-03-23] MEDS ORDERED: bisacodyL 10 MG SUPP RECTAL PRN (09:00)
[2021-03-23] MEDS ORDERED: ATORVASTATIN 40 MG TAB PO SCH (09:00)
[2021-03-23] MEDS ORDERED: MAGNESIUM HYDROXIDE 2,400 MG/10 ML CUP PO PRN (09:00)
[2021-03-23] MEDS ORDERED: PANTOPRAZOLE 40 MG/10 ML VIAL IVP SCH (09:00)
[2021-03-23] MEDS: SODIUM CHLORIDE 0.9% 1,000 ML IV SCH (09:10)
--- NOTE | 2021-03-23 09:10 | P.PN ---
Subjective Progress Note Date: 03/23/21 Principal diagnosis: Severe aortic regurgitation, status post aortic valve replacement using a 21 mm Inspiris pericardial bioprosthesis. 70-year-old female patient is currently postop aortic valve replacement. The patient is postop day #0. The surgery was done for severe aortic regurgitation. She is currently sedated with propofol and she is currently on propofol of 20 mcg/kg per minute. She is well sedated and since sentences mechanical ventilator. She is an assist-control mode with a rate of 12 with a total of 4 of 400 and FiO2 of 80% with a PEEP of 5. Blood gases are still pending for now. Chest x-ray shows adequate expansion of both lungs without any pneumothorax. The patient has mediastinal chest tubes 2. No evidence of any air leak and output from the mediastinal chest tube has been only 100 mL of bloody output since the patient arrived from the operating room. Cardiac output is at 3.4 with an index of 1.9. No pressors. Pulmonary artery pressures are 22/11. Hemodynamically stable with adequate urine output of 30 mL an hour. No other significant events. Cardiac rhythmwith a rate of 80. No other significant comorbidities. No history of any coronary artery disease. She had severe aortic regurgitation and she was quite symptomatic preoperatively. The patient is seen today 03/23/2021 in follow-up in the intensive care unit. She was successfully extubated approximately 1650 yesterday. This is postoperative day #1. She is currently sitting up in a chair at bedside. Awake and alert in no acute distress. Her pain is fairly well managed. She is maintaining O2 saturations in the 90s on 2 L/m per nasal cannula. She's been afebrile. Hemodynamically stable. Pulmonary artery pressure 21/8 with a CVP of 4, cardiac output 4.4. Cardiac index 2.8. 0.9 normal saline at 50 ML's per hour. She is on insulin drip at 1 unit per hour. She is currently in intrinsic sinus rhythm. She was a paced until approximately 1 AM. Chest x-ray reveals no evidence of pneumothorax. Possible lower lobe atelectasis and tiny effusions. Epicardial pacing leads noted,. Mediastinal diagonal drains in place to wall suction. Right jugular CV catheter in place. Right radial arterial line in place. She did not require any blood products. White count 10.0. Hemoglobin 9.3. Platelets 138. Sodium 137. Potassium 4.0. Chloride 111. Bicarb 21. BUN 11. Creatinine 0.61. Glucose 128. Magnesium 2.2. AST 461. ALT 299. Albumin 3.1. She denies any worsening shortness of breath, cough or congestion. She is working well with the incentive spirometer. Objective - Vital Signs Vital signs: Vital Signs Temp 98.9 F 03/22/21 16:00 Pulse 82 03/23/21 07:00 Resp 19 03/23/21 07:00 BP 116/72 03/23/21 04:00 Pulse Ox 100 03/23/21 07:00 Intake & Output 03/22/21 03/23/21 03/23/21 18:59 06:59 18:59 Intake Total 625.635 7279.601 341.239 Output Total 1945 855 15 Balance -1305.940 512.601 326.239 Weight 54.5 kg 57.8 kg Intake: IV 618 1138 339 0.9 300 550 50 ACETAMINOPHEN IV (For NPO 100 ) 1,000 mg In Empty Bag 1 bag @ 400 mls/hr IVPB Q6HR [facility]O Rx#:[id number] Albumin 25% 250 CO/CI 170 330 30 Pressure Bag 45 108 9 ceFAZolin 2 gm In Sodium 50 Chloride 0.9% 50 ml @ 100 mls/hr IVPB Q8HR MARC[facility]O Rx# :[id number] Intake, IV Titration 21.060 29.601 2.239 Amount Clevidipine Butyrate 25 16.134 mg In Empty Bag 1 bag @ 1 MG/HR 2 mls/hr IV .Q24H [facility]O Rx#:[id number] Dexmedetomidine/0.9% NaCl 0.341 (Pmx) 400 mcg In Empty Bag 1 bag @ Titrate IV . Q0M M[facility]O Rx#:[id number] Insulin Regular 100 unit 11.455 13.467 2.239 In Sodium Chloride 0.9% 100 ml @ Per Protocol IV .Q0M MARC[facility]O Rx#:[id number] propofoL 1,000 mg In 9.264 Empty Bag 1 bag @ Titrate IV .Q0M MARCELO Rx#: [id number] Oral 200 Output: Chest Tube Drainage 250 150 0 MS x2 250 150 0 Urine 1270 705 15 Estimated Blood Loss 425 Other: Voiding Method Indwelling Catheter Indwelling Catheter ABP, PAP, CO, CI - Last Documented Arterial Blood Pressure 128/68 Pulmonary Artery Pressure 21/8 Cardiac Output 4.4 Cardiac Index 2.8 - Exam GENERAL EXAM: Alert, pleasant 70-year-old female patient, on 2 L nasal cannula, fairly comfortable in no apparent distress. HEAD: Normocephalic. EYES: Normal reaction of pupils, equal size. NOSE: Clear with pink turbinates. THROAT: No erythema or exudates. NECK: Right IJ Powhatan-Bijan catheter in place. No masses, no JVD. CHEST: Sternal dressing dry and intact. Heart hugger in place. Mediastinal chest tube secured in place wall suction. Pacer wires in place and grounded. LUNGS: Equal air entry with faint crackles in the bilateral bases CVS: S1 and S2 normal with no audible murmur, regular rhythm. ABDOMEN: No hepatosplenomegaly, normal bowel sounds, no guarding or rigidity. SPINE: No scoliosis or deformity SKIN: No rashes CENTRAL NERVOUS SYSTEM: No focal deficits, tone is normal in all 4 extremities. EXTREMITIES: SCDs in place. Right radial arterial line in place. There is trace peripheral edema. No clubbing, no cyanosis. Peripheral pulses are intact. - Labs CBC & Chem 7: 03/23/21 04:06 03/23/21 04:06 Labs: Abnormal Lab Results - Last 24 Hours (Table) 03/13/21 03/22/21 03/22/21 Range/Units 09:00 08:32 09:36 WBC (3.8-10.6) k/uL RBC (3.80-5.40) m/uL Hgb (11.4-16.0) gm/dL Hct (34.0-46.0) % Plt Count (150-450) k/uL Neutrophils # (1.3-7.7) k/uL Lymphocytes # (1.0-4.8) k/uL PT (9.0-12.0) sec INR (<1.2) ABG pO2 330 H 314 H (83-108) mmHg ABG HCO3 26 H 26 H (21-25) mmol/L ABG Total CO2 28 H 27 H (19-24) mmol/L ABG O2 Saturation 100.0 H 100.0 H (94-97) % ABG Hematocrit (34.0-46.0) % ABG Ionized Calcium (4.5-5.3) mg/dL ABG Glucose 100 H 117 H (75-99) mg/dL Hemoglobin (11.4-16.0) gm/dL Chloride (98-107) mmol/L Carbon Dioxide (22-30) mmol/L Glucose (74-99) mg/dL POC Glucose (mg/dL) (75-99) mg/dL Ionized Calcium Aidan (4.5-5.3) mg/dL Magnesium (1.6-2.3) mg/dL AST (14-36) U/L ALT (4-34) U/L Total Protein (6.3-8.2) g/dL Albumin (3.5-5.0) g/dL Arterial Blood Glucose 100 H 117 H (75-99) mg/dL Crossmatch See Detail 03/22/21 03/22/21 03/22/21 Range/Units 10:10 10:36 12:48 WBC (3.8-10.6) k/uL RBC (3.80-5.40) m/uL Hgb (11.4-16.0) gm/dL Hct (34.0-46.0) % Plt Count (150-450) k/uL Neutrophils # (1.3-7.7) k/uL Lymphocytes # (1.0-4.8) k/uL PT (9.0-12.0) sec INR (<1.2) ABG pO2 >420 H 322 H (83-108) mmHg ABG HCO3 (21-25) mmol/L ABG Total CO2 26 H 27 H (19-24) mmol/L ABG O2 Saturation 100.0 H 100.0 H (94-97) % ABG Hematocrit 25 L 24 L (34.0-46.0) % ABG Ionized Calcium 4.2 L 4.3 L (4.5-5.3) mg/dL ABG Glucose 122 H 131 H (75-99) mg/dL Hemoglobin 8.0 L 7.8 L (11.4-16.0) gm/dL Chloride (98-107) mmol/L Carbon Dioxide (22-30) mmol/L Glucose (74-99) mg/dL POC Glucose (mg/dL) 138 H (75-99) mg/dL Ionized Calcium Aidan (4.5-5.3) mg/dL Magnesium (1.6-2.3) mg/dL AST (14-36) U/L ALT (4-34) U/L Total Protein (6.3-8.2) g/dL Albumin (3.5-5.0) g/dL Arterial Blood Glucose 122 H 131 H (75-99) mg/dL Crossmatch 03/22/21 03/22/21 03/22/21 Range/Units 12:50 12:50 12:50 WBC (3.8-10.6) k/uL RBC 3.24 L (3.80-5.40) m/uL Hgb 10.2 L (11.4-16.0) gm/dL Hct 31.2 L (34.0-46.0) % Plt Count 143 L (150-450) k/uL Neutrophils # (1.3-7.7) k/uL Lymphocytes # (1.0-4.8) k/uL PT 12.1 H (9.0-12.0) sec INR 1.2 H (<1.2) ABG pO2 (83-108) mmHg ABG HCO3 (21-25) mmol/L ABG Total CO2 (19-24) mmol/L ABG O2 Saturation (94-97) % ABG Hematocrit (34.0-46.0) % ABG Ionized Calcium (4.5-5.3) mg/dL ABG Glucose (75-99) mg/dL Hemoglobin (11.4-16.0) gm/dL Chloride 111 H (98-107) mmol/L Carbon Dioxide (22-30) mmol/L Glucose 138 H (74-99) mg/dL POC Glucose (mg/dL) (75-99) mg/dL Ionized Calcium Aidan 5.5 H (4.5-5.3) mg/dL Magnesium 2.9 H (1.6-2.3) mg/dL AST 395 H (14-36) U/L ALT 141 H (4-34) U/L Total Protein 4.3 L (6.3-8.2) g/dL Albumin 2.4 L (3.5-5.0) g/dL Arterial Blood Glucose (75-99) mg/dL Crossmatch 09/03/22/21 03/22/21 Range/Units 14:38 15:37 15:55 WBC 11.1 H (3.8-10.6) k/uL RBC 3.30 L (3.80-5.40) m/uL Hgb 10.4 L (11.4-16.0) gm/dL Hct 31.8 L (34.0-46.0) % Plt Count (150-450) k/uL Neutrophils # 9.5 H (1.3-7.7) k/uL Lymphocytes # (1.0-4.8) k/uL PT (9.0-12.0) sec INR (<1.2) ABG pO2 (83-108) mmHg ABG HCO3 (21-25) mmol/L ABG Total CO2 (19-24) mmol/L ABG O2 Saturation (94-97) % ABG Hematocrit (34.0-46.0) % ABG Ionized Calcium (4.5-5.3) mg/dL ABG Glucose (75-99) mg/dL Hemoglobin (11.4-16.0) gm/dL Chloride (98-107) mmol/L Carbon Dioxide (22-30) mmol/L Glucose (74-99) mg/dL POC Glucose (mg/dL) 149 H 209 H (75-99) mg/dL Ionized Calcium Aidan (4.5-5.3) mg/dL Magnesium (1.6-2.3) mg/dL AST (14-36) U/L ALT (4-34) U/L Total Protein (6.3-8.2) g/dL Albumin (3.5-5.0) g/dL Arterial Blood Glucose (75-99) mg/dL Crossmatch 03/22/21 03/22/21 03/22/21 Range/Units 16:37 17:00 17:20 WBC (3.8-10.6) k/uL RBC (3.80-5.40) m/uL Hgb (11.4-16.0) gm/dL Hct (34.0-46.0) % Plt Count (150-450) k/uL Neutrophils # (1.3-7.7) k/uL Lymphocytes # (1.0-4.8) k/uL PT (9.0-12.0) sec INR (<1.2) ABG pO2 (83-108) mmHg ABG HCO3 (21-25) mmol/L ABG Total CO2 (19-24) mmol/L ABG O2 Saturation (94-97) % ABG Hematocrit (34.0-46.0) % ABG Ionized Calcium (4.5-5.3) mg/dL ABG Glucose (75-99) mg/dL Hemoglobin (11.4-16.0) gm/dL Chloride 111 H (98-107) mmol/L Carbon Dioxide (22-30) mmol/L Glucose (74-99) mg/dL POC Glucose (mg/dL) 204 H 163 H (75-99) mg/dL Ionized Calcium Aidan (4.5-5.3) mg/dL Magnesium (1.6-2.3) mg/dL AST (14-36) U/L ALT (4-34) U/L Total Protein (6.3-8.2) g/dL Albumin (3.5-5.0) g/dL Arterial Blood Glucose (75-99) mg/dL Crossmatch 03/22/21 03/22/21 03/22/21 Range/Units 18:11 18:50 20:04 WBC (3.8-10.6) k/uL RBC 3.18 L (3.80-5.40) m/uL Hgb 10.0 L (11.4-16.0) gm/dL Hct 30.6 L (34.0-46.0) % Plt Count (150-450) k/uL Neutrophils # 9.7 H (1.3-7.7) k/uL Lymphocytes # 0.5 L (1.0-4.8) k/uL PT (9.0-12.0) sec INR (<1.2) ABG pO2 (83-108) mmHg ABG HCO3 (21-25) mmol/L ABG Total CO2 (19-24) mmol/L ABG O2 Saturation (94-97) % ABG Hematocrit (34.0-46.0) % ABG Ionized Calcium (4.5-5.3) mg/dL ABG Glucose (75-99) mg/dL Hemoglobin (11.4-16.0) gm/dL Chloride (98-107) mmol/L Carbon Dioxide (22-30) mmol/L Glucose (74-99) mg/dL POC Glucose (mg/dL) 118 H 110 H (75-99) mg/dL Ionized Calcium Aidan (4.5-5.3) mg/dL Magnesium (1.6-2.3) mg/dL AST (14-36) U/L ALT (4-34) U/L Total Protein (6.3-8.2) g/dL Albumin (3.5-5.0) g/dL Arterial Blood Glucose (75-99) mg/dL Crossmatch 03/22/21 03/22/21 03/22/21 Range/Units 21:09 22:00 22:56 WBC (3.8-10.6) k/uL RBC (3.80-5.40) m/uL Hgb (11.4-16.0) gm/dL Hct (34.0-46.0) % Plt Count (150-450) k/uL Neutrophils # (1.3-7.7) k/uL Lymphocytes # (1.0-4.8) k/uL PT (9.0-12.0) sec INR (<1.2) ABG pO2 (83-108) mmHg ABG HCO3 (21-25) mmol/L ABG Total CO2 (19-24) mmol/L ABG O2 Saturation (94-97) % ABG Hematocrit (34.0-46.0) % ABG Ionized Calcium (4.5-5.3) mg/dL ABG Glucose (75-99) mg/dL Hemoglobin (11.4-16.0) gm/dL Chloride (98-107) mmol/L Carbon Dioxide (22-30) mmol/L Glucose (74-99) mg/dL POC Glucose (mg/dL) 144 H 163 H 139 H (75-99) mg/dL Ionized Calcium Aidan (4.5-5.3) mg/dL Magnesium (1.6-2.3) mg/dL AST (14-36) U/L ALT (4-34) U/L Total Protein (6.3-8.2) g/dL Albumin (3.5-5.0) g/dL Arterial Blood Glucose (75-99) mg/dL Crossmatch 03/23/21 03/23/21 03/23/21 Range/Units 00:21 01:14 02:11 WBC (3.8-10.6) k/uL RBC (3.80-5.40) m/uL Hgb (11.4-16.0) gm/dL Hct (34.0-46.0) % Plt Count (150-450) k/uL Neutrophils # (1.3-7.7) k/uL Lymphocytes # (1.0-4.8) k/uL PT (9.0-12.0) sec INR (<1.2) ABG pO2 (83-108) mmHg ABG HCO3 (21-25) mmol/L ABG Total CO2 (19-24) mmol/L ABG O2 Saturation (94-97) % ABG Hematocrit (34.0-46.0) % ABG Ionized Calcium (4.5-5.3) mg/dL ABG Glucose (75-99) mg/dL Hemoglobin (11.4-16.0) gm/dL Chloride (98-107) mmol/L Carbon Dioxide (22-30) mmol/L Glucose (74-99) mg/dL POC Glucose (mg/dL) 105 H 117 H 129 H (75-99) mg/dL Ionized Calcium Aidan (4.5-5.3) mg/dL Magnesium (1.6-2.3) mg/dL AST (14-36) U/L ALT (4-34) U/L Total Protein (6.3-8.2) g/dL Albumin (3.5-5.0) g/dL Arterial Blood Glucose (75-99) mg/dL Crossmatch 03/23/21 03/23/21 03/23/21 Range/Units 03:04 04:06 04:06 WBC (3.8-10.6) k/uL RBC 2.94 L (3.80-5.40) m/uL Hgb 9.3 L (11.4-16.0) gm/dL Hct 28.6 L (34.0-46.0) % Plt Count 138 L (150-450) k/uL Neutrophils # 9.1 H (1.3-7.7) k/uL Lymphocytes # 0.5 L (1.0-4.8) k/uL PT (9.0-12.0) sec INR (<1.2) ABG pO2 (83-108) mmHg ABG HCO3 (21-25) mmol/L ABG Total CO2 (19-24) mmol/L ABG O2 Saturation (94-97) % ABG Hematocrit (34.0-46.0) % ABG Ionized Calcium (4.5-5.3) mg/dL ABG Glucose (75-99) mg/dL Hemoglobin (11.4-16.0) gm/dL Chloride 111 H (98-107) mmol/L Carbon Dioxide 21 L (22-30) mmol/L Glucose 128 H (74-99) mg/dL POC Glucose (mg/dL) 132 H (75-99) mg/dL Ionized Calcium Aidan 5.6 H (4.5-5.3) mg/dL Magnesium (1.6-2.3) mg/dL AST 461 H (14-36) U/L ALT 299 H (4-34) U/L Total Protein 5.1 L (6.3-8.2) g/dL Albumin 3.1 L (3.5-5.0) g/dL Arterial Blood Glucose (75-99) mg/dL Crossmatch 03/23/21 03/23/21 03/23/21 Range/Units 04:06 05:11 06:28 WBC (3.8-10.6) k/uL RBC (3.80-5.40) m/uL Hgb (11.4-16.0) gm/dL Hct (34.0-46.0) % Plt Count (150-450) k/uL Neutrophils # (1.3-7.7) k/uL Lymphocytes # (1.0-4.8) k/uL PT (9.0-12.0) sec INR (<1.2) ABG pO2 (83-108) mmHg ABG HCO3 (21-25) mmol/L ABG Total CO2 (19-24) mmol/L ABG O2 Saturation (94-97) % ABG Hematocrit (34.0-46.0) % ABG Ionized Calcium (4.5-5.3) mg/dL ABG Glucose (75-99) mg/dL Hemoglobin (11.4-16.0) gm/dL Chloride (98-107) mmol/L Carbon Dioxide (22-30) mmol/L Glucose (74-99) mg/dL POC Glucose (mg/dL) 124 H 111 H 132 H (75-99) mg/dL Ionized Calcium Aidan (4.5-5.3) mg/dL Magnesium (1.6-2.3) mg/dL AST (14-36) U/L ALT (4-34) U/L Total Protein (6.3-8.2) g/dL Albumin (3.5-5.0) g/dL Arterial Blood Glucose (75-99) mg/dL Crossmatch 03/23/21 Range/Units 07:05 WBC (3.8-10.6) k/uL RBC (3.80-5.40) m/uL Hgb (11.4-16.0) gm/dL Hct (34.0-46.0) % Plt Count (150-450) k/uL Neutrophils # (1.3-7.7) k/uL Lymphocytes # (1.0-4.8) k/uL PT (9.0-12.0) sec INR (<1.2) ABG pO2 (83-108) mmHg ABG HCO3 (21-25) mmol/L ABG Total CO2 (19-24) mmol/L ABG O2 Saturation (94-97) % ABG Hematocrit (34.0-46.0) % ABG Ionized Calcium (4.5-5.3) mg/dL ABG Glucose (75-99) mg/dL Hemoglobin (11.4-16.0) gm/dL Chloride (98-107) mmol/L Carbon Dioxide (22-30) mmol/L Glucose (74-99) mg/dL POC Glucose (mg/dL) 129 H (75-99) mg/dL Ionized Calcium Aidan (4.5-5.3) mg/dL Magnesium (1.6-2.3) mg/dL AST (14-36) U/L ALT (4-34) U/L Total Protein (6.3-8.2) g/dL Albumin (3.5-5.0) g/dL Arterial Blood Glucose (75-99) mg/dL Crossmatch Assessment and Plan Assessment: 1 Aortic valve replacement. The patient is currently postop day #1. Surgery was done for severe symptomatic aortic regurgitation. Currently hemodynamically stable 2 Acute hypoxic respiratory failure, expected outcome of surgery, extubated at 1650 postoperative day #0. Currently on 2 L nasal cannula. 2 mediastinal chest tube placed 3 Symptomatic valvular heart disease with severe aortic regurgitation 4 Hyperlipidemia 5 Preserved LV function with an ejection fraction of 50-55% preoperatively. 6 History of duodenal ulcers 7 History of migraines Plan: The patient was seen and evaluated by Dr. Guerin Chest x-ray and labs reviewed Encourage the increased use the incentive spirometer and cough and deep breathing exercises Titrate down the FiO2 as tolerated Increase her activity as tolerated We will continue to follow and make further recommendations based on her clinical status I, the cosigning physician, performed a history & physical examination of the patient. Lungs sounds faint crackles in the posterior bases. Maintaining good O2 saturations in the 90s on 2 L/m per nasal cannula. I discussed the assessment and plan of care with my nurse practitioner, Camilla Rodriguez. I attest to the above note as dictated by her.
[2021-03-23 10:10] LABS: Glucose,Whole Blood 110 mg/dL (75-99)
[2021-03-23] MEDS ORDERED: APIXABAN 5 MG TAB PO SCH (10:45)
[2021-03-23 11:53] VITALS: BMI 22.6
[2021-03-23] MEDS ORDERED: LOSARTAN 25 MG TAB PO SCH (12:00)
[2021-03-23 12:57] LABS: Glucose,Whole Blood 129 mg/dL (75-99)
--- NOTE | 2021-03-23 13:11 | CONS ---
CONSULTATION HISTORY: This is a 70-year-old lady, a patient of Dr. Souza, who has noncritical CAD and severe aortic regurgitation, who underwent an elective aortic valve replacement performed yesterday by Dr. Gilliland. He placed a #21 pericardial aortic valve and also he did a left atrial appendage excision and exclusion with a 35 mm atrial clip. Postprocedure, the patient is doing well this morning. She has been extubated. She is not on any drips. She is resting comfortably, had some nausea, however seems to be doing well overall. She has some incisional pain, but it seems to be reasonably comfortable. PAST MEDICAL HISTORY: Past medical history remarkable for some hyperlipidemia, episodes of shortness of breath. She also is a smoker. She has no documented evidence of any myocardial infarction or CVA. EKG revealed sinus mechanism with LVH changes, no acute findings. PHYSICAL EXAMINATION: On examination, blood pressure is 118/70, pulse is 80, sinus. HEENT unremarkable. Fundus was not examined by me. Neck is supple. No JVD. I do not hear a carotid bruit. Heart exam reveals S1, S2 with a short systolic murmur at the base. Lungs reveal diminished air entry both bases. Abdomen is soft. Lower extremities reveal diminished pulses. Central nervous system is normal. IMPRESSION: 1. Status post aortic valve replacement with a tissue valve for aortic regurgitation. 2. Hyperlipidemia. 3. History of smoking. RECOMMENDATIONS: Agree with the current medical regimen which includes a small dose of beta chito. Advised to continue incentive spirometry and pulmonary toilet. No specific intervention. We will continue to follow. Thank you very much for the consult. MMODL / IJN: [id number] /
--- NOTE | 2021-03-23 13:57 | P.PN ---
Subjective Progress Note Date: 03/23/21 History of Present Illness Patient is a 62-year-old female status post aortic valve replacement postoperative day 0. Patient is presently intubated most probably will be extubated today. Patient is presently off nitroglycerin drip and norepinephrine drip. Patient is presently on propofol drip which is being weaned off and patient is on mechanical ventilator with assist-control ventilation set up respiratory rate of 12 and PEEP of 5, FiO2 of 80%. Patient has 2 mediastinal chest tubes patient has fairly good urine output. Pulmonary arterial pressures are 22/11 03/23/2021 Patient is seen and evaluated this morning and has been extubated and doing well currently sitting up in the chair. Heart hugger noted and patient continues with chest tubes. Patient has SCDs to bilateral lower extremities and continues with indwelling Gross catheter. Patient has incentive spirometer at the bedside as instructed and encouraged to continue to use at least 10 times every hour while awake and patient inspiration continues to be weak and guarded. Patient is continued on oxygen via nasal cannula. Blood count today is 10.0, hemoglobin is 9.3, current platelets are 138. Sodium is 137 with a potassium of 4.0 current creatinine is 0.61 and magnesium is 2.2. LFTs continue to be elevated and slightly up. Patient had a mild low-grade fever of 99.7 this morning. Patient has insulin drip as needed and in the low 110's. Patient has been started on diet.. Review of systems: Constitutional: reports of fatigue, no reports of fever, or chills Cardiovascular: reports of chest wall pain Respiratory: No reports of shortness of breath, reports shallow respirations due to chest wall discomfort GI: No reports of nausea, vomiting, or diarrhea : No reports of dysuria or retention Neurovascular: reports of generalized weakness Active Medications Acetaminophen (Acetaminophen Tab 325 Mg Tab) 650 mg PO Q4HR PRN PRN Reason: Fever and/ or Mild Pain Hydrocodone Bitart/Acetaminophen (Hydrocodone/Apap 5-325mg 1 Each Tab) 2 each PO Q4HR PRN PRN Reason: Severe Pain Hydrocodone Bitart/Acetaminophen (Hydrocodone/Apap 5-325mg 1 Each Tab) 1 each PO Q4HR PRN PRN Reason: Moderate Pain Albuterol/Ipratropium (Ipratropium-Albuterol 3 Ml Neb) 3 ml INHALATION RT-Q2H PRN PRN Reason: Shortness Of Breath Or Wheezing Albuterol/Ipratropium (Ipratropium-Albuterol 3 Ml Neb) 3 ml INHALATION RT-QID [facility] Last Admin: 03/23/21 11:01 Dose: 3 ml Documented by: Alprazolam (Alprazolam 0.25 Mg Tab) 0.25 mg PO BID PRN PRN Reason: Anxiety Artificial Tears (Artificial Tears-Hypromellose Drops 15 Ml Btl) 1 drops BOTH EYES QAM [facility] Last Admin: 03/23/21 08:55 Dose: 1 drops Documented by: Aspirin (Aspirin 325 Mg Tab) 325 mg PO DAILY [facility] Last Admin: 03/23/21 08:55 Dose: 325 mg Documented by: Benzocaine/Menthol (Benzocaine/Menthol Lozeng 1 Each Lozenge) 1 each MUCOUS MEM Q2H PRN PRN Reason: Sore Throat Bisacodyl (Bisacodyl 10 Mg Supp) 10 mg RECTAL DAILY PRN PRN Reason: Constipation Clopidogrel Bisulfate (Clopidogrel 75 Mg Tab) 75 mg PO DAILY [facility] Last Admin: 03/23/21 08:55 Dose: 75 mg Documented by: Cyclosporine (Cyclosporine 0.05% Ophth 0.4 Ml Droperette) 1 drops BOTH EYES HS [facility] Last Admin: 03/22/21 20:33 Dose: 1 drops Documented by: Heparin Sodium (Porcine) (Heparin Sodium,Porcine/Pf 5,000 Unit/0.5 Ml Syringe) 5,000 unit SQ Q8HR [facility] Last Admin: 03/23/21 08:54 Dose: 5,000 unit Documented by: Clevidipine 25 mg/ IV Solution 50 mls @ 2 mls/hr IV .Q24H [facility]; Protocol Last Titration: 03/23/21 04:05 Dose: 0 mg/hr, 0 mls/hr Documented by: Amiodarone HCl 150 mg/ (Dextrose/Water) 103 mls @ 618 mls/hr IV .Q10M PRN; Protocol PRN Reason: A.FIB/FLUTTER Amiodarone HCl 360 mg/ (Dextrose/Water) 207.2 mls @ 34.533 mls/hr IV .Q6H PRN; Protocol PRN Reason: A.FIB/FLUTTER Amiodarone HCl 450 mg/ (Dextrose/Water) 250 mls @ 16.667 mls/hr IV .Q15H PRN; Protocol PRN Reason: A.FIB/FLUTTER Albumin Human 250 ml/ IV (Solution) 250 mls @ 250 mls/hr IVPB Q1HR PRN; Protocol PRN Reason: For Volume Stop: 03/24/21 12:45 Last Admin: 03/23/21 13:13 Dose: 250 mls/hr Documented by: Calcium Gluconate 2 gm/ Sodium (Chloride) 120 mls @ 100 mls/hr IVPB ONCE PRN PRN Reason: Ionized Calcium less than 4.4 Stop: 03/23/21 23:00 Insulin Human Regular 100 unit (/ Sodium Chloride) 101 mls @ 0 mls/hr IV .Q0M [facility]; Protocol Last Titration: 03/23/21 08:48 Dose: 0 units//hr, 0 mls/hr Documented by: Sodium Chloride (Saline 0.9%) 1,000 mls @ 20 mls/hr IV .Q24H [facility] Last Admin: 03/23/21 09:10 Dose: 20 mls/hr Documented by: Ketorolac Tromethamine (Ketorolac 15 Mg/Ml 1 Ml Vial) 15 mg IVP Q6HR [facility] Stop: 03/28/21 07:46 Last Admin: 03/23/21 13:02 Dose: 15 mg Documented by: Ketotifen Fumarate (Ketotifen 0.025% Ophth Drops 5 Ml Btl) 1 drops BOTH EYES BID [facility] Last Admin: 03/23/21 08:54 Dose: 1 drops Documented by: Losartan Potassium (Losartan 25 Mg Tab) 25 mg PO DAILY@1200 [facility] Last Admin: 03/23/21 12:59 Dose: 25 mg Documented by: Magnesium Hydroxide (Magnesium Hydroxide 2,400 Mg/10 Ml Cup) 2,400 mg PO BID PRN PRN Reason: Constipation Metoclopramide HCl (Metoclopramide 5 Mg/Ml 2 Ml Vial) 10 mg IVP Q4H PRN PRN Reason: Nausea And Vomiting Metoprolol Tartrate (Metoprolol Tartrate 12.5 Mg Tab) 12.5 mg PO BID [facility] Last Admin: 03/23/21 08:55 Dose: 12.5 mg Documented by: Miscellaneous Information (Potassium Replacement Protocol 1 Each Misc) 1 each MISCELLANE DAILY PRN; Protocol PRN Reason: Per Protocol Miscellaneous Information (Magnesium Replacement Protocol 1 Each Misc) 1 each MISCELLANE DAILY PRN; Protocol PRN Reason: Per Protocol Miscellaneous Information (Phosphorus Replacement Protoco 1 Each Misc) 1 each MISCELLANE DAILY PRN; Protocol PRN Reason: Per Protocol Miscellaneous Information (Potassium Replacement Protocol 1 Each Misc) 1 each MISCELLANE DAILY PRN; Protocol PRN Reason: Per Protocol Mupirocin (Mupirocin 2% Oint 22 Gm Tube) 1 applic NASAL BID [facility]; Protocol Last Admin: 03/23/21 08:55 Dose: 1 applic Documented by: Ondansetron HCl (Ondansetron 4 Mg/2 Ml Vial) 4 mg IVP Q6HR PRN PRN Reason: Nausea And Vomiting Last Admin: 03/22/21 17:15 Dose: 4 mg Documented by: Pantoprazole Sodium (Pantoprazole 40 Mg Tablet) 40 mg PO AC-BRKFST [facility] Senna/Docusate Sodium (Sennosides-Docusate Sodium 1 Each Tab) 2 each PO HS [facility] Sodium Chloride (Sodium Chloride 0.9% Flush 10 Ml Syringe) 10 ml IV BID [facility] Last Admin: 03/23/21 09:10 Dose: 10 ml Documented by: PHYSICAL EXAMINATION: GENERAL: Patient is awake, alert and oriented x 3, weak, and currently sitting up in the chair. HEENT: Pupils are round and equally reacting to light. EOMI. No scleral icterus. No conjunctival pallor. Normocephalic, atraumatic. No pharyngeal erythema. No thyromegaly. CARDIOVASCULAR: S1 and S2 present. No murmurs, rubs, or gallops. PULMONARY: diminished breath sounds bilaterally, Chest is clear to auscultation, no wheezing or crackles. She has 2 mediastinal chest tubes ABDOMEN: Soft, nontender, nondistended, normoactive bowel sounds. No palpable organomegaly. MUSCULOSKELETAL: No joint swelling or deformity. EXTREMITIES: No cyanosis, clubbing, or pedal edema. NEUROLOGICAL: a&ox3, no focal deficits noted, diffuse weakness noted SKIN: No rashes. Assessment and plan: -Status post aortic valve replacement and postoperative hypoxic respiratory failure: Patient has been extubated and maintained on 2L via NC with oxygen saturations of 96-97%. -Patient's hemoglobin A1c is 5.7 which was done this month. Patient is not diabetic, insulin drip being discontinued and will use sliding scale if needed for tight glycemic control. blood sugars are within normal range -Symptomatic aortic valve regurgitation for which patient had severe aortic regurgitation -hyperlipidemia -Gastroesophageal reflux disease -History of migraines -DVT prophylaxis: As per primary service -GI prophylaxis -full code Plan: Recommend to continue current medications. Patient is off insulin drip, not a diabetic and not requiring any coverage. Patient continues to be in the ICU and being closely monitored. Incentive spirometer at the bedside and encouraged to use at least 10 times every hour while awake. Repeat labs and continue to monitor closely. Will continue to follow during hospitalization. Thank you for this consultation. Objective - Vital Signs Vital signs: Vital Signs Temp 98.9 F 03/22/21 16:00 Pulse 82 03/23/21 07:00 Resp 19 03/23/21 07:00 BP 116/72 03/23/21 04:00 Pulse Ox 100 03/23/21 07:00 Intake & Output 03/22/21 03/23/21 03/23/21 18:59 06:59 18:59 Intake Total 471.689 4808.601 341.239 Output Total 1945 855 15 Balance -1305.940 512.601 326.239 Weight 54.5 kg 57.8 kg Intake: IV 618 1138 339 0.9 300 550 50 ACETAMINOPHEN IV (For NPO 100 ) 1,000 mg In Empty Bag 1 bag @ 400 mls/hr IVPB Q6HR [facility] Rx#:[id number] Albumin 25% 250 CO/CI 170 330 30 Pressure Bag 45 108 9 ceFAZolin 2 gm In Sodium 50 Chloride 0.9% 50 ml @ 100 mls/hr IVPB Q8HR [facility] Rx# :[id number] Intake, IV Titration 21.060 29.601 2.239 Amount Clevidipine Butyrate 25 16.134 mg In Empty Bag 1 bag @ 1 MG/HR 2 mls/hr IV .Q24H [facility] Rx#:[id number] Dexmedetomidine/0.9% NaCl 0.341 (Pmx) 400 mcg In Empty Bag 1 bag @ Titrate IV . Q0M [facility] Rx#:[id number] Insulin Regular 100 unit 11.455 13.467 2.239 In Sodium Chloride 0.9% 100 ml @ Per Protocol IV .Q0M [facility] Rx#:[id number] propofoL 1,000 mg In 9.264 Empty Bag 1 bag @ Titrate IV .Q0M [facility] Rx#: [id number] Oral 200 Output: Chest Tube Drainage 250 150 0 MS x2 250 150 0 Urine 1270 705 15 Estimated Blood Loss 425 Other: Voiding Method Indwelling Catheter Indwelling Catheter ABP, PAP, CO, CI - Last Documented Arterial Blood Pressure 128/68 Pulmonary Artery Pressure 21/8 Cardiac Output 4.4 Cardiac Index 2.8 - Labs CBC & Chem 7: 03/23/21 04:06 03/23/21 04:06 Labs: Abnormal Lab Results - Last 24 Hours (Table) 03/13/21 03/22/21 03/22/21 Range/Units 09:00 08:32 09:36 WBC (3.8-10.6) k/uL RBC (3.80-5.40) m/uL Hgb (11.4-16.0) gm/dL Hct (34.0-46.0) % Plt Count (150-450) k/uL Neutrophils # (1.3-7.7) k/uL Lymphocytes # (1.0-4.8) k/uL PT (9.0-12.0) sec INR (<1.2) ABG pO2 330 H 314 H (83-108) mmHg ABG HCO3 26 H 26 H (21-25) mmol/L ABG Total CO2 28 H 27 H (19-24) mmol/L ABG O2 Saturation 100.0 H 100.0 H (94-97) % ABG Hematocrit (34.0-46.0) % ABG Ionized Calcium (4.5-5.3) mg/dL ABG Glucose 100 H 117 H (75-99) mg/dL Hemoglobin (11.4-16.0) gm/dL Chloride (98-107) mmol/L Carbon Dioxide (22-30) mmol/L Glucose (74-99) mg/dL POC Glucose (mg/dL) (75-99) mg/dL Ionized Calcium Aidan (4.5-5.3) mg/dL Magnesium (1.6-2.3) mg/dL AST (14-36) U/L ALT (4-34) U/L Total Protein (6.3-8.2) g/dL Albumin (3.5-5.0) g/dL Arterial Blood Glucose 100 H 117 H (75-99) mg/dL Crossmatch See Detail 03/22/21 03/22/21 03/22/21 Range/Units 10:10 10:36 12:48 WBC (3.8-10.6) k/uL RBC (3.80-5.40) m/uL Hgb (11.4-16.0) gm/dL Hct (34.0-46.0) % Plt Count (150-450) k/uL Neutrophils # (1.3-7.7) k/uL Lymphocytes # (1.0-4.8) k/uL PT (9.0-12.0) sec INR (<1.2) ABG pO2 >420 H 322 H (83-108) mmHg ABG HCO3 (21-25) mmol/L ABG Total CO2 26 H 27 H (19-24) mmol/L ABG O2 Saturation 100.0 H 100.0 H (94-97) % ABG Hematocrit 25 L 24 L (34.0-46.0) % ABG Ionized Calcium 4.2 L 4.3 L (4.5-5.3) mg/dL ABG Glucose 122 H 131 H (75-99) mg/dL Hemoglobin 8.0 L 7.8 L (11.4-16.0) gm/dL Chloride (98-107) mmol/L Carbon Dioxide (22-30) mmol/L Glucose (74-99) mg/dL POC Glucose (mg/dL) 138 H (75-99) mg/dL Ionized Calcium Aidan (4.5-5.3) mg/dL Magnesium (1.6-2.3) mg/dL AST (14-36) U/L ALT (4-34) U/L Total Protein (6.3-8.2) g/dL Albumin (3.5-5.0) g/dL Arterial Blood Glucose 122 H 131 H (75-99) mg/dL Crossmatch 03/22/21 03/22/21 03/22/21 Range/Units 12:50 12:50 12:50 WBC (3.8-10.6) k/uL RBC 3.24 L (3.80-5.40) m/uL Hgb 10.2 L (11.4-16.0) gm/dL Hct 31.2 L (34.0-46.0) % Plt Count 143 L (150-450) k/uL Neutrophils # (1.3-7.7) k/uL Lymphocytes # (1.0-4.8) k/uL PT 12.1 H (9.0-12.0) sec INR 1.2 H (<1.2) ABG pO2 (83-108) mmHg ABG HCO3 (21-25) mmol/L ABG Total CO2 (19-24) mmol/L ABG O2 Saturation (94-97) % ABG Hematocrit (34.0-46.0) % ABG Ionized Calcium (4.5-5.3) mg/dL ABG Glucose (75-99) mg/dL Hemoglobin (11.4-16.0) gm/dL Chloride 111 H (98-107) mmol/L Carbon Dioxide (22-30) mmol/L Glucose 138 H (74-99) mg/dL POC Glucose (mg/dL) (75-99) mg/dL Ionized Calcium Aidan 5.5 H (4.5-5.3) mg/dL Magnesium 2.9 H (1.6-2.3) mg/dL AST 395 H (14-36) U/L ALT 141 H (4-34) U/L Total Protein 4.3 L (6.3-8.2) g/dL Albumin 2.4 L (3.5-5.0) g/dL Arterial Blood Glucose (75-99) mg/dL Crossmatch 03/22/21 03/22/21 03/22/21 Range/Units 14:38 15:37 15:55 WBC 11.1 H (3.8-10.6) k/uL RBC 3.30 L (3.80-5.40) m/uL Hgb 10.4 L (11.4-16.0) gm/dL Hct 31.8 L (34.0-46.0) % Plt Count (150-450) k/uL Neutrophils # 9.5 H (1.3-7.7) k/uL Lymphocytes # (1.0-4.8) k/uL PT (9.0-12.0) sec INR (<1.2) ABG pO2 (83-108) mmHg ABG HCO3 (21-25) mmol/L ABG Total CO2 (19-24) mmol/L ABG O2 Saturation (94-97) % ABG Hematocrit (34.0-46.0) % ABG Ionized Calcium (4.5-5.3) mg/dL ABG Glucose (75-99) mg/dL Hemoglobin (11.4-16.0) gm/dL Chloride (98-107) mmol/L Carbon Dioxide (22-30) mmol/L Glucose (74-99) mg/dL POC Glucose (mg/dL) 149 H 209 H (75-99) mg/dL Ionized Calcium Aidan (4.5-5.3) mg/dL Magnesium (1.6-2.3) mg/dL AST (14-36) U/L ALT (4-34) U/L Total Protein (6.3-8.2) g/dL Albumin (3.5-5.0) g/dL Arterial Blood Glucose (75-99) mg/dL Crossmatch 03/22/21 03/22/21 03/22/21 Range/Units 16:37 17:00 17:20 WBC (3.8-10.6) k/uL RBC (3.80-5.40) m/uL Hgb (11.4-16.0) gm/dL Hct (34.0-46.0) % Plt Count (150-450) k/uL Neutrophils # (1.3-7.7) k/uL Lymphocytes # (1.0-4.8) k/uL PT (9.0-12.0) sec INR (<1.2) ABG pO2 (83-108) mmHg ABG HCO3 (21-25) mmol/L ABG Total CO2 (19-24) mmol/L ABG O2 Saturation (94-97) % ABG Hematocrit (34.0-46.0) % ABG Ionized Calcium (4.5-5.3) mg/dL ABG Glucose (75-99) mg/dL Hemoglobin (11.4-16.0) gm/dL Chloride 111 H (98-107) mmol/L Carbon Dioxide (22-30) mmol/L Glucose (74-99) mg/dL POC Glucose (mg/dL) 204 H 163 H (75-99) mg/dL Ionized Calcium Aidan (4.5-5.3) mg/dL Magnesium (1.6-2.3) mg/dL AST (14-36) U/L ALT (4-34) U/L Total Protein (6.3-8.2) g/dL Albumin (3.5-5.0) g/dL Arterial Blood Glucose (75-99) mg/dL Crossmatch 03/22/21 03/22/21 03/22/21 Range/Units 18:11 18:50 20:04 WBC (3.8-10.6) k/uL RBC 3.18 L (3.80-5.40) m/uL Hgb 10.0 L (11.4-16.0) gm/dL Hct 30.6 L (34.0-46.0) % Plt Count (150-450) k/uL Neutrophils # 9.7 H (1.3-7.7) k/uL Lymphocytes # 0.5 L (1.0-4.8) k/uL PT (9.0-12.0) sec INR (<1.2) ABG pO2 (83-108) mmHg ABG HCO3 (21-25) mmol/L ABG Total CO2 (19-24) mmol/L ABG O2 Saturation (94-97) % ABG Hematocrit (34.0-46.0) % ABG Ionized Calcium (4.5-5.3) mg/dL ABG Glucose (75-99) mg/dL Hemoglobin (11.4-16.0) gm/dL Chloride (98-107) mmol/L Carbon Dioxide (22-30) mmol/L Glucose (74-99) mg/dL POC Glucose (mg/dL) 118 H 110 H (75-99) mg/dL Ionized Calcium Aidan (4.5-5.3) mg/dL Magnesium (1.6-2.3) mg/dL AST (14-36) U/L ALT (4-34) U/L Total Protein (6.3-8.2) g/dL Albumin (3.5-5.0) g/dL Arterial Blood Glucose (75-99) mg/dL Crossmatch 03/22/21 03/22/21 03/22/21 Range/Units 21:09 22:00 22:56 WBC (3.8-10.6) k/uL RBC (3.80-5.40) m/uL Hgb (11.4-16.0) gm/dL Hct (34.0-46.0) % Plt Count (150-450) k/uL Neutrophils # (1.3-7.7) k/uL Lymphocytes # (1.0-4.8) k/uL PT (9.0-12.0) sec INR (<1.2) ABG pO2 (83-108) mmHg ABG HCO3 (21-25) mmol/L ABG Total CO2 (19-24) mmol/L ABG O2 Saturation (94-97) % ABG Hematocrit (34.0-46.0) % ABG Ionized Calcium (4.5-5.3) mg/dL ABG Glucose (75-99) mg/dL Hemoglobin (11.4-16.0) gm/dL Chloride (98-107) mmol/L Carbon Dioxide (22-30) mmol/L Glucose (74-99) mg/dL POC Glucose (mg/dL) 144 H 163 H 139 H (75-99) mg/dL Ionized Calcium Aidan (4.5-5.3) mg/dL Magnesium (1.6-2.3) mg/dL AST (14-36) U/L ALT (4-34) U/L Total Protein (6.3-8.2) g/dL Albumin (3.5-5.0) g/dL Arterial Blood Glucose (75-99) mg/dL Crossmatch 03/23/21 03/23/21 03/23/21 Range/Units 00:21 01:14 02:11 WBC (3.8-10.6) k/uL RBC (3.80-5.40) m/uL Hgb (11.4-16.0) gm/dL Hct (34.0-46.0) % Plt Count (150-450) k/uL Neutrophils # (1.3-7.7) k/uL Lymphocytes # (1.0-4.8) k/uL PT (9.0-12.0) sec INR (<1.2) ABG pO2 (83-108) mmHg ABG HCO3 (21-25) mmol/L ABG Total CO2 (19-24) mmol/L ABG O2 Saturation (94-97) % ABG Hematocrit (34.0-46.0) % ABG Ionized Calcium (4.5-5.3) mg/dL ABG Glucose (75-99) mg/dL Hemoglobin (11.4-16.0) gm/dL Chloride (98-107) mmol/L Carbon Dioxide (22-30) mmol/L Glucose (74-99) mg/dL POC Glucose (mg/dL) 105 H 117 H 129 H (75-99) mg/dL Ionized Calcium Aidan (4.5-5.3) mg/dL Magnesium (1.6-2.3) mg/dL AST (14-36) U/L ALT (4-34) U/L Total Protein (6.3-8.2) g/dL Albumin (3.5-5.0) g/dL Arterial Blood Glucose (75-99) mg/dL Crossmatch 03/23/21 03/23/21 03/23/21 Range/Units 03:04 04:06 04:06 WBC (3.8-10.6) k/uL RBC 2.94 L (3.80-5.40) m/uL Hgb 9.3 L (11.4-16.0) gm/dL Hct 28.6 L (34.0-46.0) % Plt Count 138 L (150-450) k/uL Neutrophils # 9.1 H (1.3-7.7) k/uL Lymphocytes # 0.5 L (1.0-4.8) k/uL PT (9.0-12.0) sec INR (<1.2) ABG pO2 (83-108) mmHg ABG HCO3 (21-25) mmol/L ABG Total CO2 (19-24) mmol/L ABG O2 Saturation (94-97) % ABG Hematocrit (34.0-46.0) % ABG Ionized Calcium (4.5-5.3) mg/dL ABG Glucose (75-99) mg/dL Hemoglobin (11.4-16.0) gm/dL Chloride 111 H (98-107) mmol/L Carbon Dioxide 21 L (22-30) mmol/L Glucose 128 H (74-99) mg/dL POC Glucose (mg/dL) 132 H (75-99) mg/dL Ionized Calcium Aidan 5.6 H (4.5-5.3) mg/dL Magnesium (1.6-2.3) mg/dL AST 461 H (14-36) U/L ALT 299 H (4-34) U/L Total Protein 5.1 L (6.3-8.2) g/dL Albumin 3.1 L (3.5-5.0) g/dL Arterial Blood Glucose (75-99) mg/dL Crossmatch 03/23/21 03/23/21 03/23/21 Range/Units 04:06 05:11 06:28 WBC (3.8-10.6) k/uL RBC (3.80-5.40) m/uL Hgb (11.4-16.0) gm/dL Hct (34.0-46.0) % Plt Count (150-450) k/uL Neutrophils # (1.3-7.7) k/uL Lymphocytes # (1.0-4.8) k/uL PT (9.0-12.0) sec INR (<1.2) ABG pO2 (83-108) mmHg ABG HCO3 (21-25) mmol/L ABG Total CO2 (19-24) mmol/L ABG O2 Saturation (94-97) % ABG Hematocrit (34.0-46.0) % ABG Ionized Calcium (4.5-5.3) mg/dL ABG Glucose (75-99) mg/dL Hemoglobin (11.4-16.0) gm/dL Chloride (98-107) mmol/L Carbon Dioxide (22-30) mmol/L Glucose (74-99) mg/dL POC Glucose (mg/dL) 124 H 111 H 132 H (75-99) mg/dL Ionized Calcium Aidan (4.5-5.3) mg/dL Magnesium (1.6-2.3) mg/dL AST (14-36) U/L ALT (4-34) U/L Total Protein (6.3-8.2) g/dL Albumin (3.5-5.0) g/dL Arterial Blood Glucose (75-99) mg/dL Crossmatch 03/23/21 Range/Units 07:05 WBC (3.8-10.6) k/uL RBC (3.80-5.40) m/uL Hgb (11.4-16.0) gm/dL Hct (34.0-46.0) % Plt Count (150-450) k/uL Neutrophils # (1.3-7.7) k/uL Lymphocytes # (1.0-4.8) k/uL PT (9.0-12.0) sec INR (<1.2) ABG pO2 (83-108) mmHg ABG HCO3 (21-25) mmol/L ABG Total CO2 (19-24) mmol/L ABG O2 Saturation (94-97) % ABG Hematocrit (34.0-46.0) % ABG Ionized Calcium (4.5-5.3) mg/dL ABG Glucose (75-99) mg/dL Hemoglobin (11.4-16.0) gm/dL Chloride (98-107) mmol/L Carbon Dioxide (22-30) mmol/L Glucose (74-99) mg/dL POC Glucose (mg/dL) 129 H (75-99) mg/dL Ionized Calcium Aidan (4.5-5.3) mg/dL Magnesium (1.6-2.3) mg/dL AST (14-36) U/L ALT (4-34) U/L Total Protein (6.3-8.2) g/dL Albumin (3.5-5.0) g/dL Arterial Blood Glucose (75-99) mg/dL Crossmatch
[2021-03-23 14:05] LABS: Glucose,Whole Blood 137 mg/dL (75-99)
[2021-03-23 15:04] LABS: Glucose,Whole Blood 143 mg/dL (75-99)
[2021-03-23 17:10] LABS: Glucose,Whole Blood 134 mg/dL (75-99)
[2021-03-23] MEDS ORDERED: FAMOTIDINE 20 MG/2 ML VIAL IV ONE (17:30)
[2021-03-23 19:13] LABS: Glucose,Whole Blood 128 mg/dL (75-99)
[2021-03-23 20:03] LABS: Glucose,Whole Blood 143 mg/dL (75-99)
[2021-03-23] MEDS: SENNOSIDES-DOCUSATE SODIUM 1 EACH TAB PO SCH (20:07)
[2021-03-23] MEDS: cycloSPORINE 0.05% OPHTH 0.4 ML DROPERETTE BOTH EYES SCH (20:08)
[2021-03-23 21:08] LABS: Glucose,Whole Blood 126 mg/dL (75-99)
[2021-03-23 22:20] LABS: Glucose,Whole Blood 123 mg/dL (75-99)
[2021-03-23 23:07] LABS: Glucose,Whole Blood 127 mg/dL (75-99)
[2021-03-24] MEDS: HEPARIN SODIUM,PORCINE/PF 5,000 UNIT/0.5 ML SYRINGE SQ SCH ×4 (00:04→23:29)
[2021-03-24] MEDS: KETOROLAC 15 MG/ML 1 ML VIAL IVP SCH ×5 (00:04→23:29)
[2021-03-24 00:12] LABS: Glucose,Whole Blood 112 mg/dL (75-99)
[2021-03-24 01:09] LABS: Glucose,Whole Blood 123 mg/dL (75-99)
[2021-03-24 03:14] LABS: Glucose,Whole Blood 117 mg/dL (75-99)
[2021-03-24 04:58] LABS: Glucose,Whole Blood 110 mg/dL (75-99)
[2021-03-24 05:02] LABS: Basophils % (A) 0 %; Eosinophils # (A) 0.1 k/uL (0-0.7); Eosinophils % (A) 1 %; HCT 22.4 % (34.0-46.0); Lymphocytes # (A) 1.4 k/uL (1.0-4.8); Lymphocytes % (A) 14 %; MCH 31.8 pg (25.0-35.0); MCHC 33.9 g/dL (31.0-37.0); MCV 93.8 fL (80.0-100.0); Mean Platelet Volume 8.4; Monocytes # (A) 0.3 k/uL (0-1.0); Monocytes % (A) 3 %; Neutrophils # (A) 7.9 k/uL (1.3-7.7); Neutrophils % (A) 81 %; Platelet Count 114 k/uL (150-450); RBC 2.38 m/uL (3.80-5.40); WBC 9.8 k/uL (3.8-10.6)
[2021-03-24 05:03] LABS: HGB 7.6 gm/dL (11.4-16.0)
[2021-03-24 05:25] LABS: Ionized Calcium 5.6 mg/dL (4.5-5.3)
[2021-03-24 05:33] LABS: Albumin 3.4 g/dL (3.5-5.0); Calcium 9.1 mg/dL (8.4-10.2); Magnesium 2.4 mg/dL (1.6-2.3); Total Bilirubin 0.7 mg/dL (0.2-1.3); Total Protein 5.4 g/dL (6.3-8.2)
[2021-03-24 06:10] LABS: Glucose,Whole Blood 114 mg/dL (75-99)
--- NOTE | 2021-03-24 07:01 | XR ---
EXAMINATION TYPE: XR chest 1V portable DATE OF EXAM: 03/24/2021 CLINICAL HISTORY: Difficulty breathing progress study. Postoperative cardiac surgery TECHNIQUE: Single AP portable upright view of the chest is obtained. COMPARISON: Chest x-ray from one day earlier and older studies FINDINGS: Interval removal of right internal jugular [place]-B[place] catheter, Cordis sheath remains prese nt. Persistent 2 mediastinal drainage catheters. Persistent overlying sternal wires and left atrial a ppendage clip. Persistent metallic aortic valve. Slightly more prominent bibasilar opacities. Mild cardiomegaly with atherosclerotic thoracic aorta re demonstrated. Osseous structures remain demineralized. IMPRESSION: Worsening small bilateral pleural effusions and associated bibasilar atelectasis and/or d eveloping infiltrate.
[2021-03-24 07:08] LABS: Glucose,Whole Blood 100 mg/dL (75-99)
[2021-03-24] MEDS: PANTOPRAZOLE 40 MG TABLET PO SCH (07:22)
--- NOTE | 2021-03-24 08:18 | P.PN ---
Subjective Progress Note Date: 03/24/21 Principal diagnosis: Severe aortic regurgitation, status post aortic valve replacement using a 21 mm Inspiris pericardial bioprosthesis. 70-year-old female patient is currently postop aortic valve replacement. The patient is postop day #0. The surgery was done for severe aortic regurgitation. She is currently sedated with propofol and she is currently on propofol of 20 mcg/kg per minute. She is well sedated and since sentences mechanical ventilator. She is an assist-control mode with a rate of 12 with a total of 4 of 400 and FiO2 of 80% with a PEEP of 5. Blood gases are still pending for now. Chest x-ray shows adequate expansion of both lungs without any pneumothorax. The patient has mediastinal chest tubes 2. No evidence of any air leak and output from the mediastinal chest tube has been only 100 mL of bloody output since the patient arrived from the operating room. Cardiac output is at 3.4 with an index of 1.9. No pressors. Pulmonary artery pressures are 22/11. Hemodynamically stable with adequate urine output of 30 mL an hour. No other significant events. Cardiac rhythmwith a rate of 80. No other significant comorbidities. No history of any coronary artery disease. She had severe aortic regurgitation and she was quite symptomatic preoperatively. The patient is seen today 03/23/2021 in follow-up in the intensive care unit. She was successfully extubated approximately 1650 yesterday. This is postoperative day #1. She is currently sitting up in a chair at bedside. Awake and alert in no acute distress. Her pain is fairly well managed. She is maintaining O2 saturations in the 90s on 2 L/m per nasal cannula. She's been afebrile. Hemodynamically stable. Pulmonary artery pressure 21/8 with a CVP of 4, cardiac output 4.4. Cardiac index 2.8. 0.9 normal saline at 50 ML's per hour. She is on insulin drip at 1 unit per hour. She is currently in intrinsic sinus rhythm. She was a paced until approximately 1 AM. Chest x-ray reveals no evidence of pneumothorax. Possible lower lobe atelectasis and tiny effusions. Epicardial pacing leads noted,. Mediastinal diagonal drains in place to wall suction. Right jugular CV catheter in place. Right radial arterial line in place. She did not require any blood products. White count 10.0. Hemoglobin 9.3. Platelets 138. Sodium 137. Potassium 4.0. Chloride 111. Bicarb 21. BUN 11. Creatinine 0.61. Glucose 128. Magnesium 2.2. AST 461. ALT 299. Albumin 3.1. She denies any worsening shortness of breath, cough or congestion. She is working well with the incentive spirometer. The patient is seen today 03/24/2021 in follow-up in the intensive care unit. He is sitting up in a chair at the bedside. Doing well. Working with her incentive spirometer. Pulling 750 ML's. No events overnight. Chest x-ray continues to show atelectatic changes in the bilateral bases. White count 9.8. Hemoglobin 7.6. Platelets 114. Sodium 134. Potassium 4.0. Creatinine 0.84. AST 168. ALT 142. She is maintaining good O2 saturations in the 90s on room air. Mediastinal chest tubes remain in place. Right IJ cordis remains in place. Right radial arterial line remains in place. She remains on bronchodilators, heparin for DVT prophylaxis. Appetite is good Objective - Vital Signs Vital signs: Vital Signs Temp 98.6 F 03/24/21 04:00 Pulse 91 03/24/21 07:00 Resp 22 03/24/21 07:00 BP 115/77 03/23/21 08:00 Pulse Ox 94 L 03/24/21 07:00 Intake & Output 03/23/21 03/24/21 03/24/21 18:59 06:59 18:59 Intake Total 854.239 561.200 46 Output Total 285 485 60 Balance 569.239 76.200 -14 Weight 57.8 kg 60.1 kg Intake: IV 852 552 46 0.9 500 480 40 Albumin 25% 250 CO/CI 30 Pressure Bag 72 72 6 Intake, IV Titration 2.239 9.200 Amount Insulin Regular 100 unit 2.239 9.200 In Sodium Chloride 0.9% 100 ml @ Per Protocol IV .Q0M [facility] Rx#:[id number] Output: Chest Tube Drainage 0 90 MS x2 0 90 Urine 285 395 60 Other: Voiding Method Indwelling Catheter Indwelling Catheter ABP, PAP, CO, CI - Last Documented Arterial Blood Pressure 150/81 Pulmonary Artery Pressure 19/7 Cardiac Output 4.4 Cardiac Index 2.8 - Exam GENERAL EXAM: Alert, pleasant 70-year-old female patient, on room air, fairly comfortable in no apparent distress. HEAD: Normocephalic. EYES: Normal reaction of pupils, equal size. NOSE: Clear with pink turbinates. THROAT: No erythema or exudates. NECK: Right IJ Cordis in place. No masses, no JVD. CHEST: Sternal dressing dry and intact. Heart hugger in place. Mediastinal chest tube in place. Pacer wires in place and grounded. LUNGS: Equal air entry with faint crackles in the bilateral bases CVS: S1 and S2 normal with no audible murmur, regular rhythm. ABDOMEN: No hepatosplenomegaly, normal bowel sounds, no guarding or rigidity. SPINE: No scoliosis or deformity SKIN: No rashes CENTRAL NERVOUS SYSTEM: No focal deficits, tone is normal in all 4 extremities. EXTREMITIES: SCDs in place. Right radial arterial line in place. There is trace peripheral edema. No clubbing, no cyanosis. Peripheral pulses are intact. - Labs CBC & Chem 7: 03/24/21 04:51 03/24/21 04:51 Labs: Abnormal Lab Results - Last 24 Hours (Table) 03/23/21 03/23/21 03/23/21 Range/Units 10:09 12:56 14:04 RBC (3.80-5.40) m/uL Hgb (11.4-16.0) gm/dL Hct (34.0-46.0) % Plt Count (150-450) k/uL Neutrophils # (1.3-7.7) k/uL Sodium (137-145) mmol/L Chloride (98-107) mmol/L Carbon Dioxide (22-30) mmol/L BUN (7-17) mg/dL Glucose (74-99) mg/dL POC Glucose (mg/dL) 110 H 129 H 137 H (75-99) mg/dL Ionized Calcium Aidan (4.5-5.3) mg/dL Magnesium (1.6-2.3) mg/dL AST (14-36) U/L ALT (4-34) U/L Total Protein (6.3-8.2) g/dL Albumin (3.5-5.0) g/dL 03/23/21 03/23/21 03/23/21 Range/Units 15:02 17:08 19:11 RBC (3.80-5.40) m/uL Hgb (11.4-16.0) gm/dL Hct (34.0-46.0) % Plt Count (150-450) k/uL Neutrophils # (1.3-7.7) k/uL Sodium (137-145) mmol/L Chloride (98-107) mmol/L Carbon Dioxide (22-30) mmol/L BUN (7-17) mg/dL Glucose (74-99) mg/dL POC Glucose (mg/dL) 143 H 134 H 128 H (75-99) mg/dL Ionized Calcium Aidan (4.5-5.3) mg/dL Magnesium (1.6-2.3) mg/dL AST (14-36) U/L ALT (4-34) U/L Total Protein (6.3-8.2) g/dL Albumin (3.5-5.0) g/dL 03/23/21 03/23/21 03/23/21 Range/Units 20:02 21:07 22:18 RBC (3.80-5.40) m/uL Hgb (11.4-16.0) gm/dL Hct (34.0-46.0) % Plt Count (150-450) k/uL Neutrophils # (1.3-7.7) k/uL Sodium (137-145) mmol/L Chloride (98-107) mmol/L Carbon Dioxide (22-30) mmol/L BUN (7-17) mg/dL Glucose (74-99) mg/dL POC Glucose (mg/dL) 143 H 126 H 123 H (75-99) mg/dL Ionized Calcium Aidan (4.5-5.3) mg/dL Magnesium (1.6-2.3) mg/dL AST (14-36) U/L ALT (4-34) U/L Total Protein (6.3-8.2) g/dL Albumin (3.5-5.0) g/dL 03/23/21 03/24/21 03/24/21 Range/Units 23:05 00:11 01:07 RBC (3.80-5.40) m/uL Hgb (11.4-16.0) gm/dL Hct (34.0-46.0) % Plt Count (150-450) k/uL Neutrophils # (1.3-7.7) k/uL Sodium (137-145) mmol/L Chloride (98-107) mmol/L Carbon Dioxide (22-30) mmol/L BUN (7-17) mg/dL Glucose (74-99) mg/dL POC Glucose (mg/dL) 127 H 112 H 123 H (75-99) mg/dL Ionized Calcium Aidan (4.5-5.3) mg/dL Magnesium (1.6-2.3) mg/dL AST (14-36) U/L ALT (4-34) U/L Total Protein (6.3-8.2) g/dL Albumin (3.5-5.0) g/dL 03/24/21 03/24/21 03/24/21 Range/Units 03:12 04:51 04:51 RBC 2.38 L (3.80-5.40) m/uL Hgb 7.6 L D (11.4-16.0) gm/dL Hct 22.4 L (34.0-46.0) % Plt Count 114 L (150-450) k/uL Neutrophils # 7.9 H (1.3-7.7) k/uL Sodium 134 L (137-145) mmol/L Chloride 109 H (98-107) mmol/L Carbon Dioxide 19 L (22-30) mmol/L BUN 20 H (7-17) mg/dL Glucose 110 H (74-99) mg/dL POC Glucose (mg/dL) 117 H (75-99) mg/dL Ionized Calcium Aidan 5.6 H (4.5-5.3) mg/dL Magnesium 2.4 H (1.6-2.3) mg/dL AST 168 H (14-36) U/L ALT 142 H (4-34) U/L Total Protein 5.4 L (6.3-8.2) g/dL Albumin 3.4 L (3.5-5.0) g/dL 03/24/21 03/24/21 03/24/21 Range/Units 04:51 06:06 07:06 RBC (3.80-5.40) m/uL Hgb (11.4-16.0) gm/dL Hct (34.0-46.0) % Plt Count (150-450) k/uL Neutrophils # (1.3-7.7) k/uL Sodium (137-145) mmol/L Chloride (98-107) mmol/L Carbon Dioxide (22-30) mmol/L BUN (7-17) mg/dL Glucose (74-99) mg/dL POC Glucose (mg/dL) 110 H 114 H 100 H (75-99) mg/dL Ionized Calcium Aidan (4.5-5.3) mg/dL Magnesium (1.6-2.3) mg/dL AST (14-36) U/L ALT (4-34) U/L Total Protein (6.3-8.2) g/dL Albumin (3.5-5.0) g/dL Assessment and Plan Assessment: 1 Aortic valve replacement. The patient is currently postop day #2. Surgery was done for severe symptomatic aortic regurgitation. Currently hemodynamically stable 2 Acute hypoxic respiratory failure, expected outcome of surgery, extubated at 1650 postoperative day #0. Currently on room air. 2 mediastinal chest tube placed 3 Symptomatic valvular heart disease with severe aortic regurgitation 4 Hyperlipidemia 5 Preserved LV function with an ejection fraction of 50-55% preoperatively. 6 History of duodenal ulcers 7 History of migraines Plan: The patient was seen and evaluated by Dr. Guerin Chest x-ray and labs reviewed Encourage the increased use the incentive spirometer and cough and deep breathing exercises Increase her activity as tolerated We will continue to follow I, the cosigning physician, performed a history & physical examination of the patient. Lungs sounds faint crackles in the posterior bases. Maintaining good O2 saturations in the 90s on room air. I discussed the assessment and plan of care with my nurse practitioner, Camilla Rodriguez. I attest to the above note as dictated by her.
[2021-03-24] MEDS: IPRATROPIUM-ALBUTEROL 3 ML NEB INHALATION SCH ×4 (08:29→19:12)
[2021-03-24] MEDS: CLOPIDOGREL 75 MG TAB PO SCH (08:33)
[2021-03-24] MEDS: METOPROLOL TARTRATE 12.5 MG TAB PO SCH ×2 (08:33→23:01)
[2021-03-24] MEDS: ASPIRIN 325 MG TAB PO SCH (08:33)
[2021-03-24] MEDS: KETOTIFEN 0.025% OPHTH DROPS 5 ML BTL BOTH EYES SCH ×2 (08:34→22:59)
[2021-03-24] MEDS: ARTIFICIAL TEARS-HYPROMELLOSE DROPS 15 ML BTL BOTH EYES SCH (08:34)
[2021-03-24] MEDS: MUPIROCIN 2% OINT 22 GM TUBE NASAL SCH ×2 (08:34→23:01)
[2021-03-24] MEDS ORDERED: FUROSEMIDE 10 MG/ML 2 ML VIAL IV STA (09:01)
--- NOTE | 2021-03-24 09:01 | P.PN ---
Subjective Progress Note Date: 03/24/21 Principal diagnosis: Severe aortic valve regurgitation. Past medical history significant for hypertension, hyperlipidemia, previous tobacco dependence, osteoarthritis, periodic epistaxis with previous cauterization, hiatal hernia, previous duodenal ulcers, moderate EtOH use 2-7 drinks per week, and family history of premature coronary artery disease with father from [place] at 52. Vaccinated against Covid with J&J vaccine in August 2020. POD #2 aortic valve replacement using a 21 mm Inspiris pericardial bioprosthesis, exclusion of the left atrial appendage using a 35 mm AtriClip, intraoperative transesophageal echocardiogram and epi-aortic scanning Postoperative acute blood loss anemia and thrombocytopenia, expected given hemodilution in cardiopulmonary bypass pump Elevated transaminases, expected The patient was seen in follow-up today 03/24/2021 at her bedside in the intensive care unit. Currently she is sitting up to the bedside chair, is awake, alert and oriented 3 and is in no apparent acute distress. She remains hemodynamically stable and is currently on no untoward pressure support. Denies any complaints of shortness of breath although is complaining of some surgical type pain to her chest tube insertion sites. Oxygen saturations are 97% on room air and she is achieving 500 mL on her incentive spirometry with much encouragement. Bedside telemetry showing normal sinus rhythm heart rate 82 BPM. Right IJ Cordis in place with continuous CVP monitoring, current CVP pressure 5 mmHg. Mediastinal chest tubes in place to low continuous wall suction -20 cm H2O. No air leak is present. Draining thin serosanguineous drainage with 40 mL output in the last 8 hours and 100 mL output over the last 24 hours. Gross catheter remains in place for accurate I's and O's, 270 mL urine output in the last 8 hours. Objective - Vital Signs Vital signs: Vital Signs Temp 98.6 F 03/24/21 04:00 Pulse 91 03/24/21 07:00 Resp 22 03/24/21 07:00 BP 115/77 03/23/21 08:00 Pulse Ox 94 L 03/24/21 07:00 Intake & Output 03/23/21 03/24/21 03/24/21 18:59 06:59 18:59 Intake Total 854.239 561.200 46 Output Total 285 485 60 Balance 569.239 76.200 -14 Weight 57.8 kg 60.1 kg Intake: IV 852 552 46 0.9 500 480 40 Albumin 25% 250 CO/CI 30 Pressure Bag 72 72 6 Intake, IV Titration 2.239 9.200 Amount Insulin Regular 100 unit 2.239 9.200 In Sodium Chloride 0.9% 100 ml @ Per Protocol IV .Q0M [facility] Rx#:[id number] Output: Chest Tube Drainage 0 90 MS x2 0 90 Urine 285 395 60 Other: Voiding Method Indwelling Catheter Indwelling Catheter ABP, PAP, CO, CI - Last Documented Arterial Blood Pressure 150/81 Pulmonary Artery Pressure 19/7 Cardiac Output 4.4 Cardiac Index 2.8 - Exam CONSTITUTIONAL: Sitting up to the bedside chair in the intensive care unit, appears comfortable, cooperative, no apparent acute distress. HEENT: Neck is supple, no JVD, no lymphadenopathy. Right IJ Cordis in place and functioning. RESPIRATORY: Lungs sounds essentially clear throughout, diminished to her bilateral bases. Respirations are symmetrical and nonlabored. Currently on room air with oxygen saturations 97%. Able to achieve 500 mL on her incentive spirometry. Strong cough. CARDIOVASCULAR: Regular rhythm and rate. S1 and S2 present, negative for S3, gallop or murmur. Sternum is stable. Palpable peripheral pulses bilaterally, no edema present to her bilateral lower extremities. No calf pain or tenderness noted. Heart hugger in place with patient demonstrating appropriate use. Knee- high JORGE hose and sequential compression devices in place to her bilateral lower extremities. GASTROINTESTINAL: Abdomen soft, nontender, nondistended. Hypoactive bowel sounds present 4 quadrants. Tolerating diet. Passing flatus. No guarding or rigidity. GENITOURINARY: Gross present draining clear, yellow urine. Output 270 mL in the last 8 hours. INTEGUMENTARY: Skin is warm and dry with no evidence of clubbing or cyanosis. Midline sternal incision clean dry and well approximated, covered with dry intact dressing. NEUROLOGIC: Cranial nerves II through XII intact. No focal deficits. MUSKULOSKELETAL: Able to move all extremities, strength equal bilaterally, generalized weakness. PSYCHIATRIC: Alert and oriented to person place and time, appropriate affect, intact judgment and insight. INVASIVE LINES AND TUBES: Mediastinal chest tubes present and connected to low continuous wall suction, no air leaks present. Mediastinal tube with 40 mL of thin serosanguineous drainage overnight, 100 mL output in the last 24 hours. Right internal jugular Cordis, right radial arterial line present. Last CVP 5 mmHg. Atrial and ventricular epicardial pacemaker wires in place and grounded. - Allied health notes Allied health notes reviewed: nursing - Labs CBC & Chem 7: 03/24/21 04:51 03/24/21 04:51 Labs: Abnormal Lab Results - Last 24 Hours (Table) 03/23/21 03/23/21 03/23/21 Range/Units 10:09 12:56 14:04 RBC (3.80-5.40) m/uL Hgb (11.4-16.0) gm/dL Hct (34.0-46.0) % Plt Count (150-450) k/uL Neutrophils # (1.3-7.7) k/uL Sodium (137-145) mmol/L Chloride (98-107) mmol/L Carbon Dioxide (22-30) mmol/L BUN (7-17) mg/dL Glucose (74-99) mg/dL POC Glucose (mg/dL) 110 H 129 H 137 H (75-99) mg/dL Ionized Calcium Aidan (4.5-5.3) mg/dL Magnesium (1.6-2.3) mg/dL AST (14-36) U/L ALT (4-34) U/L Total Protein (6.3-8.2) g/dL Albumin (3.5-5.0) g/dL 03/23/21 03/23/21 03/23/21 Range/Units 15:02 17:08 19:11 RBC (3.80-5.40) m/uL Hgb (11.4-16.0) gm/dL Hct (34.0-46.0) % Plt Count (150-450) k/uL Neutrophils # (1.3-7.7) k/uL Sodium (137-145) mmol/L Chloride (98-107) mmol/L Carbon Dioxide (22-30) mmol/L BUN (7-17) mg/dL Glucose (74-99) mg/dL POC Glucose (mg/dL) 143 H 134 H 128 H (75-99) mg/dL Ionized Calcium Aidan (4.5-5.3) mg/dL Magnesium (1.6-2.3) mg/dL AST (14-36) U/L ALT (4-34) U/L Total Protein (6.3-8.2) g/dL Albumin (3.5-5.0) g/dL 03/23/21 03/23/21 03/23/21 Range/Units 20:02 21:07 22:18 RBC (3.80-5.40) m/uL Hgb (11.4-16.0) gm/dL Hct (34.0-46.0) % Plt Count (150-450) k/uL Neutrophils # (1.3-7.7) k/uL Sodium (137-145) mmol/L Chloride (98-107) mmol/L Carbon Dioxide (22-30) mmol/L BUN (7-17) mg/dL Glucose (74-99) mg/dL POC Glucose (mg/dL) 143 H 126 H 123 H (75-99) mg/dL Ionized Calcium Aidan (4.5-5.3) mg/dL Magnesium (1.6-2.3) mg/dL AST (14-36) U/L ALT (4-34) U/L Total Protein (6.3-8.2) g/dL Albumin (3.5-5.0) g/dL 03/23/21 03/24/21 03/24/21 Range/Units 23:05 00:11 01:07 RBC (3.80-5.40) m/uL Hgb (11.4-16.0) gm/dL Hct (34.0-46.0) % Plt Count (150-450) k/uL Neutrophils # (1.3-7.7) k/uL Sodium (137-145) mmol/L Chloride (98-107) mmol/L Carbon Dioxide (22-30) mmol/L BUN (7-17) mg/dL Glucose (74-99) mg/dL POC Glucose (mg/dL) 127 H 112 H 123 H (75-99) mg/dL Ionized Calcium Aidan (4.5-5.3) mg/dL Magnesium (1.6-2.3) mg/dL AST (14-36) U/L ALT (4-34) U/L Total Protein (6.3-8.2) g/dL Albumin (3.5-5.0) g/dL 03/24/21 03/24/21 03/24/21 Range/Units 03:12 04:51 04:51 RBC 2.38 L (3.80-5.40) m/uL Hgb 7.6 L D (11.4-16.0) gm/dL Hct 22.4 L (34.0-46.0) % Plt Count 114 L (150-450) k/uL Neutrophils # 7.9 H (1.3-7.7) k/uL Sodium 134 L (137-145) mmol/L Chloride 109 H (98-107) mmol/L Carbon Dioxide 19 L (22-30) mmol/L BUN 20 H (7-17) mg/dL Glucose 110 H (74-99) mg/dL POC Glucose (mg/dL) 117 H (75-99) mg/dL Ionized Calcium Aidan 5.6 H (4.5-5.3) mg/dL Magnesium 2.4 H (1.6-2.3) mg/dL AST 168 H (14-36) U/L ALT 142 H (4-34) U/L Total Protein 5.4 L (6.3-8.2) g/dL Albumin 3.4 L (3.5-5.0) g/dL 03/24/21 03/24/21 03/24/21 Range/Units 04:51 06:06 07:06 RBC (3.80-5.40) m/uL Hgb (11.4-16.0) gm/dL Hct (34.0-46.0) % Plt Count (150-450) k/uL Neutrophils # (1.3-7.7) k/uL Sodium (137-145) mmol/L Chloride (98-107) mmol/L Carbon Dioxide (22-30) mmol/L BUN (7-17) mg/dL Glucose (74-99) mg/dL POC Glucose (mg/dL) 110 H 114 H 100 H (75-99) mg/dL Ionized Calcium Aidan (4.5-5.3) mg/dL Magnesium (1.6-2.3) mg/dL AST (14-36) U/L ALT (4-34) U/L Total Protein (6.3-8.2) g/dL Albumin (3.5-5.0) g/dL - Imaging and Cardiology Chest x-ray: report reviewed, image reviewed Assessment and Plan Assessment: 1. Severe aortic valve regurgitation, status post bioprosthetic aortic valve replacement 2. History of hypertension, treated 3. Hyperlipidemia, previously untreated, cholesterol 247, LDL 133 4. Previous tobacco dependence, preoperative FEV1 107% of predicted 5. Osteoarthritis 6. Periodic epistaxis with previous cauterization by Dr. Hatfield 7. Hiatal hernia 8. Previous duodenal ulcers 9. Moderate EtOH use 2-7 drinks per week 10. Family history of premature coronary artery disease with father from [place] at 52 11. Postoperative acute blood loss anemia and thrombocytopenia, expected given hemodilution in cardiopulmonary bypass pump 12. Elevated transaminases, expected Plan: 1. Continue aspirin, statin, Plavix, and beta chito. Will increase beta chito as tolerated. 2. Encourage incentive spirometry use 10 times every hour while awake. Bronchodilators per pulmonology management. 3. Increase activity, ambulate as tolerated. PT/OT/cardiac rehab following. 4. Will monitor daily labs and chest x-rays. Electrolyte replacement protocol. 5. GI/DVT prophylaxis 6. Pain control with current medication regimen. Discontinue Henderson. 7. Insulin management per internal medicine. Patient is not diabetic with preoperative hemoglobin A1c 5.7%, does need tight blood sugar control to promote sternal union and prevent infection. 8. Discontinue right IJ Cordis. 9. Remove mediastinal chest tubes. 10. Discontinue Gross catheter. Continue to record strict and accurate intake and output. Daily weights 11. Lasix 20 mg IV 1 now. 12. Increase losartan to 50 mg by mouth daily at noon. 13. Transfer to the third floor cardiac stepdown unit. 14. More recommendations to follow based on patient's clinical course. Time with Patient: Greater than 30
--- NOTE | 2021-03-24 10:31 | PN ---
PROGRESS NOTE This is a 70-year-old lady who underwent aortic valve replacement 2 days ago. She is doing well. She has been extubated, doing well, working on incentive spirometry, maintaining sinus rhythm. No chest pain or shortness of breath. She does have some incisional pain. She is maintaining sinus rhythm, hemodynamically stable. Vital signs are stable. No JVD. S1-S2 heard normally. Short systolic murmur is evident. Lungs reveal improved air entry. Rest of physical exam unchanged. Plan is to continue incentive spirometry, pulmonary toilet and current medications. MMODL / IJN: [id number] /
[2021-03-24] MEDS: ATORVASTATIN 40 MG TAB PO SCH (11:47)
[2021-03-24] MEDS: LOSARTAN 50 MG TAB PO SCH (11:48)
[2021-03-24] MEDS: SODIUM CHLORIDE 0.9% 1,000 ML IV SCH (12:08)
--- NOTE | 2021-03-24 13:31 | P.PN ---
Subjective Progress Note Date: 03/24/21 Patient is a 62-year-old female status post aortic valve replacement postoperative day 0. Patient is presently intubated most probably will be extubated today. Patient is presently off nitroglycerin drip and norepinephrine drip. Patient is presently on propofol drip which is being weaned off and patient is on mechanical ventilator with assist-control ventilation set up respiratory rate of 12 and PEEP of 5, FiO2 of 80%. Patient has 2 mediastinal chest tubes patient has fairly good urine output. Pulmonary arterial pressures are 22/11 03/23/2021 Patient is seen and evaluated this morning and has been extubated and doing well currently sitting up in the chair. Heart hugger noted and patient continues with chest tubes. Patient has SCDs to bilateral lower extremities and continues with indwelling Gross catheter. Patient has incentive spirometer at the bedside as instructed and encouraged to continue to use at least 10 times every hour while awake and patient inspiration continues to be weak and guarded. Patient is continued on oxygen via nasal cannula. Blood count today is 10.0, hemoglobin is 9.3, current platelets are 138. Sodium is 137 with a potassium of 4.0 current creatinine is 0.61 and magnesium is 2.2. LFTs continue to be elevated and slightly up. Patient had a mild low-grade fever of 99.7 this morning. Patient has insulin drip as needed and in the low 110's. Patient has been started on diet.. 03/24/2021 Patient is evaluated today in the ICU. She is sitting up at the bedside, postoperative day #2 aortic valve replacement. Patient denies any cough or shortness of breath. She does denies mild incisional chest pain. Her main complaint today is her acid reflux. Due to her platelet count Pepcid was discontinued yesterday however has been resumed for HS dosing. We will monitor her platelets closely. Labs reviewed today include a white blood cell count of 9.8, hemoglobin of 7.6. Sodium is 134, chloride 109, CO2 19. AST was 68, ALT 142, which are improving. Vital signs include a heart rate of 63 sinus rhythm, blood pressure 112/69, 95% 2 L nasal cannula. Patient is afebrile. Chest x-ray this morning shows worsening small bilateral pleural effusions with associated bibasilar atelectasis and/or developing infiltrate. Continue to encourage ambul ation, PT/OT consultation, encourage incentive spirometer. Review of systems: Constitutional: reports of fatigue, no reports of fever, or chills Cardiovascular: reports of chest wall pain Respiratory: No reports of shortness of breath, reports shallow respirations due to chest wall discomfort GI: No reports of nausea, vomiting, or diarrhea : No reports of dysuria or retention Neurovascular: reports of generalized weakness PHYSICAL EXAMINATION: GENERAL: Patient is awake, alert and oriented x 3, weak, and currently sitting up in the chair. HEENT: Pupils are round and equally reacting to light. EOMI. No scleral icterus. No conjunctival pallor. Normocephalic, atraumatic. No pharyngeal erythema. No thyromegaly. CARDIOVASCULAR: S1 and S2 present. No murmurs, rubs, or gallops. PULMONARY: diminished breath sounds bilaterally, Chest is clear to auscultation, no wheezing or crackles. She has 2 mediastinal chest tubes ABDOMEN: Soft, nontender, nondistended, normoactive bowel sounds. No palpable organomegaly. MUSCULOSKELETAL: No joint swelling or deformity. EXTREMITIES: No cyanosis, clubbing, or pedal edema. NEUROLOGICAL: a&ox3, no focal deficits noted, diffuse weakness noted SKIN: No rashes. Assessment and plan: -Status post aortic valve replacement and postoperative hypoxic respiratory failure: Patient has been extubated and maintained on 2L via NC with oxygen saturations of 96-97%. -Patient's hemoglobin A1c is 5.7 which was done this month. Patient is not diabetic, insulin drip being discontinued and will use sliding scale if needed for tight glycemic control. blood sugars are within normal range -Symptomatic aortic valve regurgitation for which patient had aortic valve replacement -hyperlipidemia -Gastroesophageal reflux disease, resume at bedtime Pepcid -History of migraines -DVT prophylaxis: recommendations per primary service, subcu heparin -GI prophylaxis: Protonix -full code Plan: Recommend to continue current medications. Patient is off insulin drip, not a diabetic and not requiring any coverage. Incentive spirometer at the bedside and encouraged to use at least 10 times per hour while awake. Patient has been downgraded to 3 south from ICU. Primary services has increased losartan to 50 mg daily. Repeat morning labs. Objective - Vital Signs Vital signs: Vital Signs Temp 98.2 F 03/24/21 08:00 Pulse 63 03/24/21 11:00 Resp 20 03/24/21 11:00 BP 112/69 03/24/21 11:00 Pulse Ox 95 03/24/21 11:00 Intake & Output 03/23/21 03/24/21 03/24/21 18:59 06:59 18:59 Intake Total 854.239 561.200 407 Output Total 285 485 165 Balance 569.239 76.200 242 Weight 57.8 kg 60.1 kg Intake: IV 852 552 167 0.9 500 480 140 Albumin 25% 250 CO/CI 30 Pressure Bag 72 72 27 Intake, IV Titration 2.239 9.200 Amount Insulin Regular 100 unit 2.239 9.200 In Sodium Chloride 0.9% 100 ml @ Per Protocol IV .Q0M REPLACED BY [facility] Rx#:[id number] Oral 240 Output: Chest Tube Drainage 0 90 10 MS x2 0 90 10 Urine 285 395 155 Other: Voiding Method Indwelling Catheter Indwelling Catheter Indwelling Catheter # Bowel Movements 1 ABP, PAP, CO, CI - Last Documented Arterial Blood Pressure 117/62 Pulmonary Artery Pressure 19/7 Cardiac Output 4.4 Cardiac Index 2.8 - Labs CBC & Chem 7: 03/24/21 04:51 03/24/21 04:51 Labs: Abnormal Lab Results - Last 24 Hours (Table) 03/23/21 03/23/21 03/23/21 Range/Units 14:04 15:02 17:08 RBC (3.80-5.40) m/uL Hgb (11.4-16.0) gm/dL Hct (34.0-46.0) % Plt Count (150-450) k/uL Neutrophils # (1.3-7.7) k/uL Sodium (137-145) mmol/L Chloride (98-107) mmol/L Carbon Dioxide (22-30) mmol/L BUN (7-17) mg/dL Glucose (74-99) mg/dL POC Glucose (mg/dL) 137 H 143 H 134 H (75-99) mg/dL Ionized Calcium Aidan (4.5-5.3) mg/dL Magnesium (1.6-2.3) mg/dL AST (14-36) U/L ALT (4-34) U/L Total Protein (6.3-8.2) g/dL Albumin (3.5-5.0) g/dL 03/23/21 03/23/21 03/23/21 Range/Units 19:11 20:02 21:07 RBC (3.80-5.40) m/uL Hgb (11.4-16.0) gm/dL Hct (34.0-46.0) % Plt Count (150-450) k/uL Neutrophils # (1.3-7.7) k/uL Sodium (137-145) mmol/L Chloride (98-107) mmol/L Carbon Dioxide (22-30) mmol/L BUN (7-17) mg/dL Glucose (74-99) mg/dL POC Glucose (mg/dL) 128 H 143 H 126 H (75-99) mg/dL Ionized Calcium Aidan (4.5-5.3) mg/dL Magnesium (1.6-2.3) mg/dL AST (14-36) U/L ALT (4-34) U/L Total Protein (6.3-8.2) g/dL Albumin (3.5-5.0) g/dL 03/23/21 03/23/21 03/24/21 Range/Units 22:18 23:05 00:11 RBC (3.80-5.40) m/uL Hgb (11.4-16.0) gm/dL Hct (34.0-46.0) % Plt Count (150-450) k/uL Neutrophils # (1.3-7.7) k/uL Sodium (137-145) mmol/L Chloride (98-107) mmol/L Carbon Dioxide (22-30) mmol/L BUN (7-17) mg/dL Glucose (74-99) mg/dL POC Glucose (mg/dL) 123 H 127 H 112 H (75-99) mg/dL Ionized Calcium Aidan (4.5-5.3) mg/dL Magnesium (1.6-2.3) mg/dL AST (14-36) U/L ALT (4-34) U/L Total Protein (6.3-8.2) g/dL Albumin (3.5-5.0) g/dL 03/24/21 03/24/21 03/24/21 Range/Units 01:07 03:12 04:51 RBC 2.38 L (3.80-5.40) m/uL Hgb 7.6 L D (11.4-16.0) gm/dL Hct 22.4 L (34.0-46.0) % Plt Count 114 L (150-450) k/uL Neutrophils # 7.9 H (1.3-7.7) k/uL Sodium (137-145) mmol/L Chloride (98-107) mmol/L Carbon Dioxide (22-30) mmol/L BUN (7-17) mg/dL Glucose (74-99) mg/dL POC Glucose (mg/dL) 123 H 117 H (75-99) mg/dL Ionized Calcium Aidan (4.5-5.3) mg/dL Magnesium (1.6-2.3) mg/dL AST (14-36) U/L ALT (4-34) U/L Total Protein (6.3-8.2) g/dL Albumin (3.5-5.0) g/dL 03/24/21 03/24/21 03/24/21 Range/Units 04:51 04:51 06:06 RBC (3.80-5.40) m/uL Hgb (11.4-16.0) gm/dL Hct (34.0-46.0) % Plt Count (150-450) k/uL Neutrophils # (1.3-7.7) k/uL Sodium 134 L (137-145) mmol/L Chloride 109 H (98-107) mmol/L Carbon Dioxide 19 L (22-30) mmol/L BUN 20 H (7-17) mg/dL Glucose 110 H (74-99) mg/dL POC Glucose (mg/dL) 110 H 114 H (75-99) mg/dL Ionized Calcium Aidan 5.6 H (4.5-5.3) mg/dL Magnesium 2.4 H (1.6-2.3) mg/dL AST 168 H (14-36) U/L ALT 142 H (4-34) U/L Total Protein 5.4 L (6.3-8.2) g/dL Albumin 3.4 L (3.5-5.0) g/dL 03/24/21 Range/Units 07:06 RBC (3.80-5.40) m/uL Hgb (11.4-16.0) gm/dL Hct (34.0-46.0) % Plt Count (150-450) k/uL Neutrophils # (1.3-7.7) k/uL Sodium (137-145) mmol/L Chloride (98-107) mmol/L Carbon Dioxide (22-30) mmol/L BUN (7-17) mg/dL Glucose (74-99) mg/dL POC Glucose (mg/dL) 100 H (75-99) mg/dL Ionized Calcium Aidan (4.5-5.3) mg/dL Magnesium (1.6-2.3) mg/dL AST (14-36) U/L ALT (4-34) U/L Total Protein (6.3-8.2) g/dL Albumin (3.5-5.0) g/dL Assessment and Plan Time with Patient: Greater than 30
[2021-03-24 16:30] LABS: Glucose,Whole Blood 150 mg/dL (75-99)
[2021-03-24] MEDS: INSULIN ASPART (NovoLOG) 100 UNIT/ML VIAL SQ SCH ×3 (16:53→23:00)
[2021-03-24] MEDS: FAMOTIDINE 20 MG TAB PO SCH (18:34)
[2021-03-24 22:29] LABS: Glucose,Whole Blood 154 mg/dL (75-99)
[2021-03-24] MEDS: cycloSPORINE 0.05% OPHTH 0.4 ML DROPERETTE BOTH EYES SCH (23:00)
[2021-03-24] MEDS: SENNOSIDES-DOCUSATE SODIUM 1 EACH TAB PO SCH (23:01)
[2021-03-25 04:27] LABS: Basophils % (A) 0 %; Eosinophils # (A) 0.2 k/uL (0-0.7); Eosinophils % (A) 3 %; HCT 22.2 % (34.0-46.0); HGB 7.3 gm/dL (11.4-16.0); Lymphocytes # (A) 1.8 k/uL (1.0-4.8); Lymphocytes % (A) 19 %; MCH 31.6 pg (25.0-35.0); MCHC 32.8 g/dL (31.0-37.0); MCV 96.4 fL (80.0-100.0); Mean Platelet Volume 7.8; Monocytes # (A) 0.4 k/uL (0-1.0); Monocytes % (A) 4 %; Neutrophils # (A) 6.9 k/uL (1.3-7.7); Neutrophils % (A) 73 %; Platelet Count 105 k/uL (150-450); RDW 13.4 % (11.5-15.5); WBC 9.4 k/uL (3.8-10.6)
[2021-03-25 05:07] LABS: ALT 97 U/L (4-34); AST 103 U/L (14-36); African American GFR (CKD) >90 (>60 ml/min/1.73 sqM); Albumin 3.3 g/dL (3.5-5.0); Alkaline Phosphatase 81 U/L (38-126); Anion Gap 7 mmol/L; Blood Urea Nitrogen 19 mg/dL (7-17); Calcium 9.2 mg/dL (8.4-10.2); Carbon Dioxide 21 mmol/L (22-30); Chloride 106 mmol/L (98-107); Glucose 102 mg/dL (74-99); Magnesium 2.1 mg/dL (1.6-2.3); Non-African American GFR(CKD) 87 (>60 ml/min/1.73 sqM); Sodium 134 mmol/L (137-145); Total Bilirubin 0.8 mg/dL (0.2-1.3); Total Protein 5.6 g/dL (6.3-8.2)
[2021-03-25 06:46] LABS: Glucose,Whole Blood 96 mg/dL (75-99)
[2021-03-25] MEDS: INSULIN ASPART (NovoLOG) 100 UNIT/ML VIAL SQ SCH ×4 (06:49→20:31)
[2021-03-25] MEDS: KETOROLAC 15 MG/ML 1 ML VIAL IVP SCH (06:52)
[2021-03-25] MEDS: HEPARIN SODIUM,PORCINE/PF 5,000 UNIT/0.5 ML SYRINGE SQ SCH ×2 (06:52→15:56)
[2021-03-25] MEDS: PANTOPRAZOLE 40 MG TABLET PO SCH (06:53)
[2021-03-25] MEDS: IPRATROPIUM-ALBUTEROL 3 ML NEB INHALATION SCH ×4 (07:29→20:35)
--- NOTE | 2021-03-25 08:55 | P.PN ---
Subjective Progress Note Date: 03/25/21 03/25/2021, the patient is doing well. The patient is hemodynamically stable on room air oxygen. Chest x-ray from this morning is still pending. She is using incentive spirometer. She is up to 750. Cordis is still in place and this will be removed. The patient is awake and alert. No neurological deficit. No respiratory distress. Surgical incision over the sternum spiking and intact and the patient is a sinus rhythm. No other significant events or issues overnight. Pacemaker wires are still in place. Objective - Vital Signs Vital signs: Vital Signs Temp 98.6 F 03/25/21 04:00 Pulse 76 03/25/21 07:43 Resp 14 03/25/21 04:00 BP 115/89 03/25/21 04:00 Pulse Ox 97 03/25/21 07:33 Intake & Output 03/24/21 03/25/21 03/25/21 18:59 06:59 18:59 Intake Total 907 220 Output Total 965 600 Balance -58 -380 Intake: IV 307 220 0.9 280 220 Pressure Bag 27 Oral 600 Output: Chest Tube Drainage 10 MS x2 10 Urine 955 600 Other: Voiding Method Bedside Commode # Bowel Movements 1 ABP, PAP, CO, CI - Last Documented Arterial Blood Pressure 117/62 Pulmonary Artery Pressure 19/7 Cardiac Output 4.4 Cardiac Index 2.8 - Exam CONSTITUTIONAL: Sitting up to the bedside chair in the intensive care unit, appears comfortable, cooperative, no apparent acute distress. HEENT: Neck is supple, no JVD, no lymphadenopathy. Right IJ Cordis in place and functioning. RESPIRATORY: Lungs sounds essentially clear throughout, diminished to her bilateral bases. Respirations are symmetrical and nonlabored. Currently on room air with oxygen saturations 97%. Able to achieve 500 mL on her incentive spirometry. Strong cough. CARDIOVASCULAR: Regular rhythm and rate. S1 and S2 present, negative for S3, gallop or murmur. Sternum is stable. Palpable peripheral pulses bilaterally, no edema present to her bilateral lower extremities. No calf pain or tenderness noted. Heart hugger in place with patient demonstrating appropriate use. Knee- high JORGE hose and sequential compression devices in place to her bilateral lower extremities. GASTROINTESTINAL: Abdomen soft, nontender, nondistended. Hypoactive bowel sounds present 4 quadrants. Tolerating diet. Passing flatus. No guarding or rigidity. INTEGUMENTARY: Skin is warm and dry with no evidence of clubbing or cyanosis. Midline sternal incision clean dry and well approximated, covered with dry intact dressing. NEUROLOGIC: Cranial nerves II through XII intact. No focal deficits. MUSKULOSKELETAL: Able to move all extremities, strength equal bilaterally, generalized weakness. PSYCHIATRIC: Alert and oriented to person place and time, appropriate affect, intact judgment and insight. - Labs CBC & Chem 7: 03/25/21 04:03 03/25/21 04:03 Labs: Abnormal Lab Results - Last 24 Hours (Table) 03/24/21 03/24/21 03/25/21 Range/Units 16:29 22:28 04:03 RBC (3.80-5.40) m/uL Hgb (11.4-16.0) gm/dL Hct (34.0-46.0) % Plt Count (150-450) k/uL Sodium 134 L (137-145) mmol/L Carbon Dioxide 21 L (22-30) mmol/L BUN 19 H (7-17) mg/dL Glucose 102 H (74-99) mg/dL POC Glucose (mg/dL) 150 H 154 H (75-99) mg/dL AST 103 H (14-36) U/L ALT 97 H (4-34) U/L Total Protein 5.6 L (6.3-8.2) g/dL Albumin 3.3 L (3.5-5.0) g/dL 03/25/21 Range/Units 04:03 RBC 2.30 L (3.80-5.40) m/uL Hgb 7.3 L (11.4-16.0) gm/dL Hct 22.2 L (34.0-46.0) % Plt Count 105 L (150-450) k/uL Sodium (137-145) mmol/L Carbon Dioxide (22-30) mmol/L BUN (7-17) mg/dL Glucose (74-99) mg/dL POC Glucose (mg/dL) (75-99) mg/dL AST (14-36) U/L ALT (4-34) U/L Total Protein (6.3-8.2) g/dL Albumin (3.5-5.0) g/dL Assessment and Plan Plan: 1 aortic valve replacement. The patient is currently postop day #3. Surgery was done for severe symptomatic aortic regurgitation. 2 acute hypoxic respiratory failure, expected outcome of surgery, currently intubated on a mechanical ventilator. The patient is also hemodynamically stable and the patient The chest tube removed and the patient is currently on room air oxygen. 3 symptomatic valvular heart disease with severe aortic regurgitation 4 hyperlipidemia 5 preserved LV function with an ejection fraction of 50-55% preoperatively. 6 history of duodenal ulcers 7 history of migraines Plan Awaiting follow-up to review Chest x-ray from today. Continue using incentive spirometer Increased mobility and ambulation Hemoglobin is 7.3 which is stable and there is no Signs of bleeding. May remove the cordis We'll continue to follow
[2021-03-25] MEDS ORDERED: FUROSEMIDE 10 MG/ML 2 ML VIAL IV STA (09:08)
--- NOTE | 2021-03-25 09:11 | XR ---
EXAMINATION TYPE: XR chest 2V DATE OF EXAM: 03/25/2021 COMPARISON: Chest x-ray from yesterday and older studies HISTORY: Postoperative aortic valve replacement. TECHNIQUE: Frontal and lateral views of the chest are obtained. FINDINGS: Interval removal of right internal jugular Cordis sheath. Interval removal of 2 mediastina l drainage catheters. Persistent overlying sternal wires and left atrial appendage clip. Persistent m etallic aortic valve. Persistent bibasilar opacities. Mild cardiomegaly with atherosclerotic thoracic aorta redemonstrated. Osseous structures remain demineralized. IMPRESSION: Mild cardiomegaly with Small bilateral pleural effusions and associated bibasilar atelect asis and/or infiltrate redemonstrated. No significant change from one day earlier.
--- NOTE | 2021-03-25 09:12 | P.PN ---
Subjective Progress Note Date: 03/25/21 Principal diagnosis: Severe aortic valve regurgitation. Past medical history significant for hypertension, hyperlipidemia, previous tobacco dependence, osteoarthritis, periodic epistaxis with previous cauterization, hiatal hernia, previous duodenal ulcers, moderate EtOH use 2-7 drinks per week, and family history of premature coronary artery disease with father from [place] at 52. Vaccinated against Covid with J&J vaccine in August 2020. POD #3 aortic valve replacement using a 21 mm Inspiris pericardial bioprosthesis, exclusion of the left atrial appendage using a 35 mm AtriClip, intraoperative transesophageal echocardiogram and epi-aortic scanning Postoperative acute blood loss anemia and thrombocytopenia, expected given hemodilution in cardiopulmonary bypass pump Elevated transaminases, expected The patient was seen in follow-up today 03/25/2021 at her bedside in the intensive care unit. Currently she is sitting up to the bedside chair, is awake, alert and oriented 3 and is in no apparent acute distress. Denies any complaints of pain or shortness of breath at this time and reports she is feeling better today than yesterday. She remains hemodynamically stable and is currently on no inotropic or pressor support. Oxygen saturations are 97% on room air and she is achieving 1000 mL on her incentive spirometry with encouragement. She reports she has been up ambulating in the intensive care unit hallway with minimal assistance from therapy and nursing staff and has been tolerating well. The patient's stool softener was discontinued as the patient is complaining of loose stool. She remains afebrile the last 24 hours. Atrial and ventricular epicardial pacemaker wires in place and grounded. Objective - Vital Signs Vital signs: Vital Signs Temp 98.6 F 03/25/21 04:00 Pulse 76 03/25/21 07:43 Resp 14 03/25/21 04:00 BP 115/89 03/25/21 04:00 Pulse Ox 97 03/25/21 07:33 Intake & Output 03/24/21 03/25/21 03/25/21 18:59 06:59 18:59 Intake Total 907 220 Output Total 965 600 Balance -58 -380 Intake: IV 307 220 0.9 280 220 Pressure Bag 27 Oral 600 Output: Chest Tube Drainage 10 MS x2 10 Urine 955 600 Other: Voiding Method Bedside Commode # Bowel Movements 1 ABP, PAP, CO, CI - Last Documented Arterial Blood Pressure 117/62 Pulmonary Artery Pressure 19/7 Cardiac Output 4.4 Cardiac Index 2.8 - Exam CONSTITUTIONAL: Sitting up to the bedside chair in the intensive care unit, appears comfortable, cooperative, no apparent acute distress. HEENT: Neck is supple, no JVD, no lymphadenopathy. Right IJ Cordis in place and functioning. RESPIRATORY: Lungs sounds essentially clear throughout, diminished to her bilateral bases. Respirations are symmetrical and nonlabored. Currently on room air with oxygen saturations 97%. Able to achieve 1000 mL on her incentive spirometry. Strong cough. CARDIOVASCULAR: Regular rhythm and rate. S1 and S2 present, negative for S3, gallop or murmur. Sternum is stable. Palpable peripheral pulses bilaterally, no edema present to her bilateral lower extremities. No calf pain or tenderness noted. Heart hugger in place with patient demonstrating appropriate use. Knee- high JORGE hose and sequential compression devices in place to her bilateral lower extremities. GASTROINTESTINAL: Abdomen soft, nontender, nondistended. Active bowel sounds present 4 quadrants. Tolerating diet. Passing flatus. No guarding or rigidity. GENITOURINARY: Gross present draining clear, yellow urine. Output 300 mL in the last 8 hours. INTEGUMENTARY: Skin is warm and dry with no evidence of clubbing or cyanosis. Midline sternal incision clean dry and well approximated, covered with dry intact dressing. NEUROLOGIC: Cranial nerves II through XII intact. No focal deficits. MUSKULOSKELETAL: Able to move all extremities, strength equal bilaterally, generalized weakness. PSYCHIATRIC: Alert and oriented to person place and time, appropriate affect, intact judgment and insight. INVASIVE LINES AND TUBES: Right internal jugular Cordis, right radial arterial line present. Atrial and ventricular epicardial pacemaker wires in place and grounded. - Allied health notes Allied health notes reviewed: nursing - Labs CBC & Chem 7: 03/25/21 04:03 03/25/21 04:03 Labs: Abnormal Lab Results - Last 24 Hours (Table) 03/24/21 03/24/21 03/25/21 Range/Units 16:29 22:28 04:03 RBC (3.80-5.40) m/uL Hgb (11.4-16.0) gm/dL Hct (34.0-46.0) % Plt Count (150-450) k/uL Sodium 134 L (137-145) mmol/L Carbon Dioxide 21 L (22-30) mmol/L BUN 19 H (7-17) mg/dL Glucose 102 H (74-99) mg/dL POC Glucose (mg/dL) 150 H 154 H (75-99) mg/dL AST 103 H (14-36) U/L ALT 97 H (4-34) U/L Total Protein 5.6 L (6.3-8.2) g/dL Albumin 3.3 L (3.5-5.0) g/dL 03/25/21 Range/Units 04:03 RBC 2.30 L (3.80-5.40) m/uL Hgb 7.3 L (11.4-16.0) gm/dL Hct 22.2 L (34.0-46.0) % Plt Count 105 L (150-450) k/uL Sodium (137-145) mmol/L Carbon Dioxide (22-30) mmol/L BUN (7-17) mg/dL Glucose (74-99) mg/dL POC Glucose (mg/dL) (75-99) mg/dL AST (14-36) U/L ALT (4-34) U/L Total Protein (6.3-8.2) g/dL Albumin (3.5-5.0) g/dL - Imaging and Cardiology Chest x-ray: report reviewed, image reviewed Assessment and Plan Assessment: 1. Severe aortic valve regurgitation, status post bioprosthetic aortic valve replacement 2. History of hypertension, treated 3. Hyperlipidemia, previously untreated, cholesterol 247, LDL 133 4. Previous tobacco dependence, preoperative FEV1 107% of predicted 5. Osteoarthritis 6. Periodic epistaxis with previous cauterization by Dr. Hatfield 7. Hiatal hernia 8. Previous duodenal ulcers 9. Moderate EtOH use 2-7 drinks per week 10. Family history of premature coronary artery disease with father from [place] at 52 11. Postoperative acute blood loss anemia and thrombocytopenia, expected given hemodilution in cardiopulmonary bypass pump 12. Elevated transaminases, expected, trending down Plan: 1. Continue aspirin, statin, Plavix, and beta chito. Will increase metoprolol tartrate 25 mg by mouth twice a day. 2. Encourage incentive spirometry use 10 times every hour while awake. Bronchodilators per pulmonology management. 3. Increase activity, ambulate as tolerated. PT/OT/cardiac rehab following. 4. Will monitor daily labs and chest x-rays. Electrolyte replacement protocol. 5. GI/DVT prophylaxis 6. Pain control with current medication regimen. Toradol discontinued. 7. Insulin management per internal medicine. Patient is not diabetic with preoperative hemoglobin A1c 5.7%, does need tight blood sugar control to promote sternal union and prevent infection. 8. Discontinue right IJ Cordis. 9. Remove mediastinal chest tubes. 10. Continue to record strict and accurate intake and output. Daily weights 11. Lasix 20 mg IV 1 now. 12. Continue losartan 50 mg by mouth daily at noon. 13. Transfer to the third floor cardiac stepdown unit when bed available. 14. Keep atrial and ventricular epicardial pacemaker wires in place, we will remove the epicardial pacemaker wires tomorrow 03/26/2021. 15. More recommendations to follow based on patient's clinical course. Time with Patient: Greater than 30
[2021-03-25] MEDS: ATORVASTATIN 40 MG TAB PO SCH (09:29)
[2021-03-25] MEDS: ASPIRIN 325 MG TAB PO SCH (09:29)
[2021-03-25] MEDS: KETOTIFEN 0.025% OPHTH DROPS 5 ML BTL BOTH EYES SCH ×2 (09:29→20:13)
[2021-03-25] MEDS: MUPIROCIN 2% OINT 22 GM TUBE NASAL SCH ×2 (09:29→20:14)
[2021-03-25] MEDS: CLOPIDOGREL 75 MG TAB PO SCH (09:29)
[2021-03-25] MEDS: ARTIFICIAL TEARS-HYPROMELLOSE DROPS 15 ML BTL BOTH EYES SCH (09:29)
[2021-03-25] MEDS: METOPROLOL TARTRATE 25 MG TAB PO SCH ×2 (09:30→20:12)
--- NOTE | 2021-03-25 10:26 | P.PN ---
Subjective Progress Note Date: 03/25/21 Patient is a 62-year-old female status post aortic valve replacement postoperative day 0. Patient is presently intubated most probably will be extubated today. Patient is presently off nitroglycerin drip and norepinephrine drip. Patient is presently on propofol drip which is being weaned off and patient is on mechanical ventilator with assist-control ventilation set up respiratory rate of 12 and PEEP of 5, FiO2 of 80%. Patient has 2 mediastinal chest tubes patient has fairly good urine output. Pulmonary arterial pressures are 22/11 03/23/2021 Patient is seen and evaluated this morning and has been extubated and doing well currently sitting up in the chair. Heart hugger noted and patient continues with chest tubes. Patient has SCDs to bilateral lower extremities and continues with indwelling Gross catheter. Patient has incentive spirometer at the bedside as instructed and encouraged to continue to use at least 10 times every hour while awake and patient inspiration continues to be weak and guarded. Patient is continued on oxygen via nasal cannula. Blood count today is 10.0, hemoglobin is 9.3, current platelets are 138. Sodium is 137 with a potassium of 4.0 current creatinine is 0.61 and magnesium is 2.2. LFTs continue to be elevated and slightly up. Patient had a mild low-grade fever of 99.7 this morning. Patient has insulin drip as needed and in the low 110's. Patient has been started on diet.. 03/24/2021 Patient is evaluated today in the ICU. She is sitting up at the bedside, postoperative day #2 aortic valve replacement. Patient denies any cough or shortness of breath. She does denies mild incisional chest pain. Her main complaint today is her acid reflux. Due to her platelet count Pepcid was discontinued yesterday however has been resumed for HS dosing. We will monitor her platelets closely. Labs reviewed today include a white blood cell count of 9.8, hemoglobin of 7.6. Sodium is 134, chloride 109, CO2 19. AST was 68, ALT 142, which are improving. Vital signs include a heart rate of 63 sinus rhythm, blood pressure 112/69, 95% 2 L nasal cannula. Patient is afebrile. Chest x-ray this morning shows worsening small bilateral pleural effusions with associated bibasilar atelectasis and/or developing infiltrate. Continue to encourage ambul ation, PT/OT consultation, encourage incentive spirometer. 03/25/2021 Patient is postoperative day #3 are replacement. She is continuing the ICU. Catheter has been removed, patient states that she is urinating without difficulty. Patient is having bowel movements and passing gas. Patient does s munoz that her reflux has improved with an at bedtime dose of Pepcid and a dose of Protonix. Her platelet count is stable at 105. Her hemoglobin is 7.3 today. Sodium was 134, CO2 21. Blood sugar at breakfast was 96. AST and ALT are trending down at 103 and 97 respectively. Her albumin is 3.3. Chest x-ray today reveals myocardial megaly with small bilateral pleural effusions and associated bibasilar atelectasis and/or infiltrate. There is no change from previous. Vital signs include a temp of 98.6, heart rate 76 sinus rhythm, blood pressure 115/89 and she is 97% on room air. Plan today is to remove the mediastinal chest tubes, Cordis. Plan is to remove epicardial pacemaker wires on Friday. Patient was cleared by cardiothoracic for transfer to [address] [place] [address] when a bed becomes available. Review of systems: Constitutional: reports of fatigue, no reports of fever, or chills Cardiovascular: reports of chest wall pain Respiratory: No reports of shortness of breath, reports a decrease in chest wall discomfort able to take a deeper breath. GI: No reports of nausea, vomiting, abdominal pain. She denies any reflux today. She does report looser bowel movements. : No reports of dysuria or retention Neurovascular: reports of generalized weakness PHYSICAL EXAMINATION: GENERAL: Patient is awake, alert and oriented x 3, weak, and currently sitting up in the chair. HEENT: Pupils are round and equally reacting to light. EOMI. No scleral icterus. No conjunctival pallor. Normocephalic, atraumatic. No pharyngeal erythema. No thyromegaly. CARDIOVASCULAR: S1 and S2 present. No murmurs, rubs, or gallops. PULMONARY: diminished breath sounds bilaterally, Chest is clear to auscultation, no wheezing or crackles. ABDOMEN: Soft, nontender, nondistended, normoactive bowel sounds. No palpable organomegaly. MUSCULOSKELETAL: No joint swelling or deformity. EXTREMITIES: No cyanosis, clubbing, or pedal edema. NEUROLOGICAL: a&ox3, no focal deficits noted, diffuse weakness noted SKIN: No rashes. Assessment and plan: -Status post aortic valve replacement and postoperative hypoxic respiratory failure: Patient has been extubated and maintained on room air saturations of 96-97%. -Patient's hemoglobin A1c is 5.7 which was done this month. Patient is not diabetic, insulin drip being discontinued and will use sliding scale if needed for tight glycemic control. blood sugars are within normal range -Symptomatic aortic valve regurgitation for which patient had aortic valve r eplacement postoperative day #3 -hyperlipidemia -Gastroesophageal reflux disease, resume at bedtime Pepcid , with AM Protonix -History of migraines -DVT prophylaxis: recommendations per primary service, subcu heparin -GI prophylaxis: Protonix -full code Plan: Recommend to continue current medications. Continue current medications for blood sugar control. Incentive spirometer at the bedside and encouraged to use at least 10 times per hour while awake. Patient was given a one-time dose of IV Lasix today. Continue to encourage ambulation, patient can transfer to [address] [place] [address] is available. Patient's mediastinal chest tubes were discontinued today from cardio thoracic and epicardial pacemaker wires will be discontinued tomorrow. Objective - Vital Signs Vital signs: Vital Signs Temp 98.6 F 03/25/21 04:00 Pulse 76 03/25/21 07:43 Resp 14 03/25/21 04:00 BP 115/89 03/25/21 04:00 Pulse Ox 97 03/25/21 07:33 Intake & Output 03/24/21 03/25/21 03/25/21 18:59 06:59 18:59 Intake Total 907 220 Output Total 965 600 Balance -58 -380 Intake: IV 307 220 0.9 280 220 Pressure Bag 27 Oral 600 Output: Chest Tube Drainage 10 MS x2 10 Urine 955 600 Other: Voiding Method Bedside Commode Bedside Commode # Bowel Movements 1 1 ABP, PAP, CO, CI - Last Documented Arterial Blood Pressure 117/62 Pulmonary Artery Pressure 19/7 Cardiac Output 4.4 Cardiac Index 2.8 - Labs CBC & Chem 7: 03/25/21 04:03 03/25/21 04:03 Labs: Abnormal Lab Results - Last 24 Hours (Table) 03/24/21 03/24/21 03/25/21 Range/Units 16:29 22:28 04:03 RBC (3.80-5.40) m/uL Hgb (11.4-16.0) gm/dL Hct (34.0-46.0) % Plt Count (150-450) k/uL Sodium 134 L (137-145) mmol/L Carbon Dioxide 21 L (22-30) mmol/L BUN 19 H (7-17) mg/dL Glucose 102 H (74-99) mg/dL POC Glucose (mg/dL) 150 H 154 H (75-99) mg/dL AST 103 H (14-36) U/L ALT 97 H (4-34) U/L Total Protein 5.6 L (6.3-8.2) g/dL Albumin 3.3 L (3.5-5.0) g/dL 03/25/21 Range/Units 04:03 RBC 2.30 L (3.80-5.40) m/uL Hgb 7.3 L (11.4-16.0) gm/dL Hct 22.2 L (34.0-46.0) % Plt Count 105 L (150-450) k/uL Sodium (137-145) mmol/L Carbon Dioxide (22-30) mmol/L BUN (7-17) mg/dL Glucose (74-99) mg/dL POC Glucose (mg/dL) (75-99) mg/dL AST (14-36) U/L ALT (4-34) U/L Total Protein (6.3-8.2) g/dL Albumin (3.5-5.0) g/dL Assessment and Plan Time with Patient: Greater than 30
--- NOTE | 2021-03-25 11:37 | PN ---
PROGRESS NOTE Mrs. Watts is status post aortic valve replacement with tissue valve for severe aortic regurgitation. She is in sinus rhythm, doing well, recovering nicely. She is working on incentive spirometry making modest progress. Vitals are stable. S1-S2 heard normally. Short systolic murmur is audible. Lungs reveal improved air entry. Rest of physical exam unchanged. PLAN: Continue incentive spirometry, pulmonary toilet and hopefully move to telemetry today. MMODL / IJN: [id number] /
[2021-03-25 11:40] LABS: Glucose,Whole Blood 102 mg/dL (75-99)
[2021-03-25] MEDS: FAMOTIDINE 20 MG TAB PO SCH (15:56)
[2021-03-25] MEDS: LOSARTAN 50 MG TAB PO SCH (15:56)
[2021-03-25 16:55] LABS: Glucose,Whole Blood 98 mg/dL (75-99)
[2021-03-25] MEDS: METOPROLOL TARTRATE 12.5 MG TAB PO SCH (17:18)
[2021-03-25] MEDS: cycloSPORINE 0.05% OPHTH 0.4 ML DROPERETTE BOTH EYES SCH (20:13)
[2021-03-25 20:39] LABS: Glucose,Whole Blood 150 mg/dL (75-99)
[2021-03-26 06:12] LABS: Glucose,Whole Blood 105 mg/dL (75-99)
[2021-03-26] MEDS: PANTOPRAZOLE 40 MG TABLET PO SCH (06:33)
[2021-03-26] MEDS: INSULIN ASPART (NovoLOG) 100 UNIT/ML VIAL SQ SCH ×4 (06:33→20:13)
[2021-03-26] MEDS: IPRATROPIUM-ALBUTEROL 3 ML NEB INHALATION SCH ×4 (08:05→19:19)
[2021-03-26 08:18] LABS: HCT 22.1 % (34.0-46.0); HGB 7.4 gm/dL (11.4-16.0); MCH 31.7 pg (25.0-35.0); MCHC 33.5 g/dL (31.0-37.0); MCV 94.4 fL (80.0-100.0); Mean Platelet Volume 7.7; RBC 2.34 m/uL (3.80-5.40); RDW 14.4 % (11.5-15.5); WBC 8.1 k/uL (3.8-10.6)
[2021-03-26 08:21] LABS: Platelet Count 170 k/uL (150-450)
[2021-03-26 08:25] LABS: ALT 97 U/L (4-34); AST 95 U/L (14-36); African American GFR (CKD) >90 (>60 ml/min/1.73 sqM); Albumin 3.3 g/dL (3.5-5.0); Alkaline Phosphatase 107 U/L (38-126); Anion Gap 7 mmol/L; Blood Urea Nitrogen 13 mg/dL (7-17); Calcium 9.1 mg/dL (8.4-10.2); Carbon Dioxide 26 mmol/L (22-30); Chloride 102 mmol/L (98-107); Glucose 121 mg/dL (74-99); Non-African American GFR(CKD) >90 (>60 ml/min/1.73 sqM); Potassium 3.8 mmol/L (3.5-5.1); Sodium 135 mmol/L (137-145); Total Bilirubin 0.9 mg/dL (0.2-1.3); Total Protein 5.6 g/dL (6.3-8.2)
--- NOTE | 2021-03-26 08:27 | XR ---
EXAMINATION TYPE: XR chest 1V portable DATE OF EXAM: 03/26/2021 COMPARISON: Chest x-ray 03/25/2021 HISTORY: Postop aortic valve replacement TECHNIQUE: Single frontal view of the chest is obtained. FINDINGS: Bibasilar increased attenuation, blunting the costophrenic angles again noted, hemidiaphra gms are obscured. Patient is status post left atrial appendage clip placement, median sternotomy, car diac valve replacement. No evident pneumothorax. There are overlying leads, artifacts. Cardiac medias tinal silhouette is stable. IMPRESSION: Findings are similar, there are basilar effusions and associated atelectasis versus tree a, pneumonia not excluded.
--- NOTE | 2021-03-26 08:52 | P.PN ---
Subjective Progress Note Date: 03/26/21 Principal diagnosis: Severe aortic valve regurgitation. Past medical history significant for hypertension, hyperlipidemia, previous tobacco dependence, osteoarthritis, periodic epistaxis with previous cauterization, hiatal hernia, previous duodenal ulcers, moderate EtOH use 2-7 drinks per week, and family history of premature coronary artery disease with father from [place] at 52. Vaccinated against Covid with J&J vaccine in August 2020. POD #4 aortic valve replacement using a 21 mm Inspiris pericardial bioprosthesis, exclusion of the left atrial appendage using a 35 mm AtriClip, intraoperative transesophageal echocardiogram and epi-aortic scanning Postoperative acute blood loss anemia and thrombocytopenia, expected given hemodilution in cardiopulmonary bypass pump Elevated transaminases, expected The patient was seen in follow-up today 03/26/2021 at her bedside on the cardiac stepdown unit. Currently she is sitting up to the bedside chair, is awake, alert and oriented 3 and is in no apparent acute distress. She denies any complaints of pain or shortness of breath at this time. Reports she was up ambulating in the intensive care unit always yesterday with minimal assistance from nursing and therapy staff. She did have her first postoperative shower yesterday and tolerated it well. Atrial and ventricular epicardial pacemaker wires remained in place and grounded. Remote telemetry showing normal sinus rhythm heart rate 77 BPM. Oxygen saturations are 97% on room air and she is achieving 750-1000 mL on her incentive spirometry. Denies any further complaints of loose stools and her stool softener was discontinued yesterday. She has been afebrile the last 24 hours. Objective - Vital Signs Vital signs: Vital Signs Temp 98.0 F 03/26/21 04:00 Pulse 76 03/26/21 08:05 Resp 18 03/26/21 04:00 BP 126/76 03/26/21 04:00 Pulse Ox 97 03/26/21 04:00 Intake & Output 03/25/21 03/26/21 03/26/21 18:59 06:59 18:59 Intake Total 780 Output Total 1200 500 Balance -420 -500 Weight 58.5 kg Intake: IV 60 0.9 60 Oral 720 Output: Urine 1200 500 Other: Voiding Method Toilet # Bowel Movements 1 ABP, PAP, CO, CI - Last Documented Arterial Blood Pressure 117/62 Pulmonary Artery Pressure 19/7 Cardiac Output 4.4 Cardiac Index 2.8 - Exam CONSTITUTIONAL: Sitting up to the bedside chair on the cardiac stepdown unit, appears comfortable, cooperative, no apparent acute distress. HEENT: Neck is supple, no JVD, no lymphadenopathy. RESPIRATORY: Lungs sounds essentially clear throughout, diminished to her bilateral bases. Respirations are symmetrical and nonlabored. Currently on room air with oxygen saturations 97%. Able to achieve 750-1000 mL on her incentive spirometry. Strong cough. CARDIOVASCULAR: Regular rhythm and rate. S1 and S2 present, negative for S3, gallop or murmur. Sternum is stable. Palpable peripheral pulses bilaterally, trace edema present to her bilateral lower extremities. No calf pain or tenderness noted. Heart hugger in place with patient demonstrating appropriate use. Knee-high JORGE hose and sequential compression devices in place to her bilateral lower extremities. GASTROINTESTINAL: Abdomen soft, nontender, nondistended. Active bowel sounds present 4 quadrants. Tolerating diet. Passing flatus. No guarding or rigidity. Bowel movement yesterday 03/25/2021. GENITOURINARY: Continues to void. INTEGUMENTARY: Skin is warm and dry with no evidence of clubbing or cyanosis. Midline sternal incision clean dry and well approximated, covered with dry intact dressing. NEUROLOGIC: Cranial nerves II through XII intact. No focal deficits. MUSKULOSKELETAL: Able to move all extremities, strength equal bilaterally. PSYCHIATRIC: Alert and oriented to person place and time, appropriate affect, intact judgment and insight. INVASIVE LINES AND TUBES: Atrial and ventricular epicardial pacemaker wires in place and grounded. - Allied health notes Allied health notes reviewed: nursing - Labs CBC & Chem 7: 03/25/21 04:03 03/25/21 04:03 Labs: Abnormal Lab Results - Last 24 Hours (Table) 03/25/21 03/25/21 03/26/21 Range/Units 11:38 20:28 06:06 POC Glucose (mg/dL) 102 H 150 H 105 H (75-99) mg/dL - Imaging and Cardiology Chest x-ray: report reviewed, image reviewed Assessment and Plan Assessment: 1. Severe aortic valve regurgitation, status post bioprosthetic aortic valve replacement 2. History of hypertension, treated 3. Hyperlipidemia, previously untreated, cholesterol 247, LDL 133 4. Previous tobacco dependence, preoperative FEV1 107% of predicted 5. Osteoarthritis 6. Periodic epistaxis with previous cauterization by Dr. aHtfield 7. Hiatal hernia 8. Previous duodenal ulcers 9. Moderate EtOH use 2-7 drinks per week 10. Family history of premature coronary artery disease with father from [place] at 52 11. Postoperative acute blood loss anemia and thrombocytopenia, expected given hemodilution in cardiopulmonary bypass pump 12. Elevated transaminases, expected, trending down Plan: 1. Continue aspirin, statin, Plavix, and beta chito. Will increase metoprolol tartrate as tolerated. Her metoprolol tartrate was increased to 25 mg by mouth twice a day yesterday 03/25/2021. 2. Encourage incentive spirometry use 10 times every hour while awake. Bronchodilators per pulmonology management. 3. Increase activity, ambulate as tolerated. PT/OT/cardiac rehab following. 4. Will monitor daily labs and chest x-rays. Electrolyte replacement protocol. 5. GI/DVT prophylaxis 6. Pain control with current medication regimen. 7. Insulin management per internal medicine. Patient is not diabetic with preoperative hemoglobin A1c 5.7%, does need tight blood sugar control to promote sternal union and prevent infection. 8. We will discontinue atrial and ventricular epicardial pacemaker wires today. Bed rest for 1 hour post pacemaker wire removal. 9. Continue losartan 50 mg by mouth daily at noon 10. Continue to record strict and accurate intake and output. Daily weights 11. Lasix 20 mg IV 1 now. 12. Discharge planning in place. Anticipate discharge home tomorrow with home health care. Discharge teaching has been initiated. 13. More recommendations to follow based on patient's clinical course. Time with Patient: Greater than 30
[2021-03-26] MEDS ORDERED: POTASSIUM CHLORIDE ER 20 MEQ TAB.ER PO SCH (09:00)
[2021-03-26] MEDS ORDERED: FUROSEMIDE 10 MG/ML 2 ML VIAL IV ONE (09:00)
[2021-03-26] MEDS: HEPARIN SODIUM,PORCINE/PF 5,000 UNIT/0.5 ML SYRINGE SQ SCH ×4 (09:50→23:00)
[2021-03-26] MEDS: CLOPIDOGREL 75 MG TAB PO SCH (09:51)
[2021-03-26] MEDS: METOPROLOL TARTRATE 25 MG TAB PO SCH ×2 (09:51→20:24)
[2021-03-26] MEDS: ASPIRIN 325 MG TAB PO SCH (09:51)
[2021-03-26] MEDS: ARTIFICIAL TEARS-HYPROMELLOSE DROPS 15 ML BTL BOTH EYES SCH (09:51)
[2021-03-26] MEDS: ATORVASTATIN 40 MG TAB PO SCH (09:51)
[2021-03-26] MEDS: MUPIROCIN 2% OINT 22 GM TUBE NASAL SCH ×2 (09:52→20:25)
[2021-03-26] MEDS: KETOTIFEN 0.025% OPHTH DROPS 5 ML BTL BOTH EYES SCH ×2 (09:52→20:25)
[2021-03-26 11:35] LABS: Glucose,Whole Blood 93 mg/dL (75-99)
[2021-03-26] MEDS: LOSARTAN 50 MG TAB PO SCH (12:22)
--- NOTE | 2021-03-26 13:42 | P.PN ---
Subjective This is 70-year-old female past medical history of hypertension and hyperlipidemia, former smoker, arthritis, severe aortic regurgitation. She follows with Dr. Souza. Patient presents to the hospital for planned aortic valve replacement. Patient is POD 4 aortic valve replacement, exclusion of the left atrial appendage on 03/22/21. Patient stated that at bedside, no acute distress. She is seen in the bedside chair. She denies any chest pain or shortness of breath. Blood pressure 105/67, heart rate 74, afebrile, maintaining oxygen saturations on room air. Laboratory data reviewed WBC 8.1, hemoglobin 7.4, platelets 170, sodium 135, potassium 3.8, BUN 13, serum creatinine 0.6. Patient currently maintained on aspirin 325 mg daily, atorva statin 40 mg daily, Plavix 75 mg daily, was given 20 mg IV Lasix today, losartan 50 mg daily, Lopressor 25 mg twice a day. 1.2L urine output over the past 24 hours. She is in sinus mechanism. GENERAL: Well-appearing, well-nourished and in no acute distress. NECK: Supple without JVD or thyromegaly. LUNGS: Breath sounds clear to auscultation bilaterally. Respiration equal and unlabored. No wheezes, rales or rhonchi. HEART: Regular rate and rhythm systolic murmur noted, No rubs or gallops. S1 and S2 heard. Anterior chest incision covered with dry dressing EXTREMITIES: Normal range of motion, no edema. No clubbing or cyanosis. Peripheral pulses intact. ASSESSMENT Severe aortic valve regurgitation, status post bioprosthetic aortic valve replacement History of hypertension Hyperlipidemia Former tobacco use Arthritis PLAN Continue aspirin, statin, Plavix, beta chito therapy. Increase activity as tolerated Incentive spirometry every hour while awake Post operative management per CT surgery Patient to follow up with Dr. Souza outpatient Nurse Practitioner note has been reviewed, I agree with a documented findings and plan of care. Patient was seen and examined. Objective - Vital Signs Vital signs: Vital Signs Temp 98.5 F 03/26/21 12:10 Pulse 74 03/26/21 12:10 Resp 17 03/26/21 12:10 BP 105/67 03/26/21 12:10 Pulse Ox 97 03/26/21 07:40 Intake & Output 03/25/21 03/26/21 03/26/21 18:59 06:59 18:59 Intake Total 780 1200 Output Total 3538 503 8060 Balance -420 -500 0 Weight 58.5 kg Intake: IV 60 0.9 60 Oral 720 1200 Output: Urine 1626 583 6183 Other: Voiding Method Toilet Toilet # Bowel Movements 1 ABP, PAP, CO, CI - Last Documented Arterial Blood Pressure 117/62 Pulmonary Artery Pressure 19/7 Cardiac Output 4.4 Cardiac Index 2.8 - Labs CBC & Chem 7: 03/26/21 07:33 03/26/21 07:33 Labs: Abnormal Lab Results - Last 24 Hours (Table) 03/25/21 03/26/21 03/26/21 Range/Units 20:28 06:06 07:33 RBC 2.34 L (3.80-5.40) m/uL Hgb 7.4 L (11.4-16.0) gm/dL Hct 22.1 L (34.0-46.0) % Sodium (137-145) mmol/L Glucose (74-99) mg/dL POC Glucose (mg/dL) 150 H 105 H (75-99) mg/dL AST (14-36) U/L ALT (4-34) U/L Total Protein (6.3-8.2) g/dL Albumin (3.5-5.0) g/dL 03/26/21 Range/Units 07:33 RBC (3.80-5.40) m/uL Hgb (11.4-16.0) gm/dL Hct (34.0-46.0) % Sodium 135 L (137-145) mmol/L Glucose 121 H (74-99) mg/dL POC Glucose (mg/dL) (75-99) mg/dL AST 95 H (14-36) U/L ALT 97 H (4-34) U/L Total Protein 5.6 L (6.3-8.2) g/dL Albumin 3.3 L (3.5-5.0) g/dL
[2021-03-26 16:44] LABS: Glucose,Whole Blood 109 mg/dL (75-99)
--- NOTE | 2021-03-26 16:50 | P.PN ---
Subjective Progress Note Date: 03/26/21 Principal diagnosis: Severe aortic valve regurgitation, status post aortic valve replacement postoperative day #4 Patient was reevaluated today on 03/26/2021, she is actually on the cardiac floor, on room air, does not seem to be in any distress. Patient is doing fairly well with incentive spirometry achieving almost 1000 mL. Denies any cough wheezing or shortness of breath denies any chest pain. Chest x-ray from this morning was reviewed showed by lateral small effusions and associated atelectasis. No evidence of pneumonia CBC is unremarkable, hemoglobin is 7.4 lites are normal renal profile is normal Objective - Vital Signs Vital signs: Vital Signs Temp 99 F 03/26/21 15:30 Pulse 99 03/26/21 15:30 Resp 16 03/26/21 15:30 BP 109/68 03/26/21 15:30 Pulse Ox 98 03/26/21 15:30 Intake & Output 03/25/21 03/26/21 03/26/21 18:59 06:59 18:59 Intake Total 780 1200 Output Total 8542 693 1079 Balance -420 -500 0 Weight 58.5 kg Intake: IV 60 0.9 60 Oral 720 1200 Output: Urine 5716 560 6168 Other: Voiding Method Toilet Toilet # Bowel Movements 1 ABP, PAP, CO, CI - Last Documented Arterial Blood Pressure 117/62 Pulmonary Artery Pressure 19/7 Cardiac Output 4.4 Cardiac Index 2.8 - Exam CONSTITUTIONAL: Revealed 70-year-old white female, on room air, in no distress. HEENT: PERRLA, EOMI, nonicteric, no neck masses, no JVD. RESPIRATORY: Slightly diminished breath sounds at the bases no rhonchi and no wheezes CARDIOVASCULAR: 2/6 systolic murmur throughout the precordium. GASTROINTESTINAL: Soft nontender no megaly no rebound no guarding. INTEGUMENTARY: Skin is unremarkable, no rashes. NEUROLOGIC: Alert and oriented 3 no gross focal deficits. MUSKULOSKELETAL: No deformities noted limitation in range of motion PSYCHIATRIC: Normal mood affect and normal mental status examination. - Labs CBC & Chem 7: 03/26/21 07:33 03/26/21 07:33 Labs: Abnormal Lab Results - Last 24 Hours (Table) 03/25/21 03/26/21 03/26/21 Range/Units 20:28 06:06 07:33 RBC 2.34 L (3.80-5.40) m/uL Hgb 7.4 L (11.4-16.0) gm/dL Hct 22.1 L (34.0-46.0) % Sodium (137-145) mmol/L Glucose (74-99) mg/dL POC Glucose (mg/dL) 150 H 105 H (75-99) mg/dL AST (14-36) U/L ALT (4-34) U/L Total Protein (6.3-8.2) g/dL Albumin (3.5-5.0) g/dL 03/26/21 03/26/21 Range/Units 07:33 16:17 RBC (3.80-5.40) m/uL Hgb (11.4-16.0) gm/dL Hct (34.0-46.0) % Sodium 135 L (137-145) mmol/L Glucose 121 H (74-99) mg/dL POC Glucose (mg/dL) 109 H (75-99) mg/dL AST 95 H (14-36) U/L ALT 97 H (4-34) U/L Total Protein 5.6 L (6.3-8.2) g/dL Albumin 3.3 L (3.5-5.0) g/dL Assessment and Plan Assessment: Pression: Severe aortic regurgitation status post bioprosthetic aortic valve replacement postoperative day #4 Benign essential hypertension Postoperative pleural effusions and atelectasis, expected History of hiatal hernia Ex-smoker Family history of premature coronary artery disease Postoperative blood loss anemia, expected. Recommendation: Continue present supportive care measures Continue Plavix beta blockers and aspirin Continue to encourage incentive spirometry Ambulate. Pain control. Continue Lasix. Possible discharge planning in the next 24-48 hours. We will continue to follow Time with Patient: Less than 30
[2021-03-26] MEDS: FAMOTIDINE 20 MG TAB PO SCH (18:02)
[2021-03-26 19:33] LABS: Glucose,Whole Blood 129 mg/dL (75-99)
[2021-03-26] MEDS: cycloSPORINE 0.05% OPHTH 0.4 ML DROPERETTE BOTH EYES SCH (20:32)
--- NOTE | 2021-03-27 04:21 | P.PN ---
Subjective Progress Note Date: 03/26/21 History of Present Illness Patient is a 62-year-old female status post aortic valve replacement postoperative day 0. Patient is presently intubated most probably will be extubated today. Patient is presently off nitroglycerin drip and norepinephrine drip. Patient is presently on propofol drip which is being weaned off and patient is on mechanical ventilator with assist-control ventilation set up respiratory rate of 12 and PEEP of 5, FiO2 of 80%. Patient has 2 mediastinal chest tubes patient has fairly good urine output. Pulmonary arterial pressures are 22/11 03/23/2021 Patient is seen and evaluated this morning and has been extubated and doing well currently sitting up in the chair. Heart hugger noted and patient continues with chest tubes. Patient has SCDs to bilateral lower extremities and continues with indwelling Gross catheter. Patient has incentive spirometer at the bedside as instructed and encouraged to continue to use at least 10 times every hour while awake and patient inspiration continues to be weak and guarded. Patient is continued on oxygen via nasal cannula. Blood count today is 10.0, hemoglobin is 9.3, current platelets are 138. Sodium is 137 with a potassium of 4.0 current creatinine is 0.61 and magnesium is 2.2. LFTs continue to be elevated and slightly up. Patient had a mild low-grade fever of 99.7 this morning. Patient has insulin drip as needed and in the low 110's. Patient has been started on diet.. 03/24/2021 Patient is evaluated today in the ICU. She is sitting up at the bedside, postoperative day #2 aortic valve replacement. Patient denies any cough or shortness of breath. She does denies mild incisional chest pain. Her main complaint today is her acid reflux. Due to her platelet count Pepcid was di scontinued yesterday however has been resumed for HS dosing. We will monitor her platelets closely. Labs reviewed today include a white blood cell count of 9.8, hemoglobin of 7.6. Sodium is 134, chloride 109, CO2 19. AST was 68, ALT 142, which are improving. Vital signs include a heart rate of 63 sinus rhythm, blood pressure 112/69, 95% 2 L nasal cannula. Patient is afebrile. Chest x-ray this morning shows worsening small bilateral pleural effusions with associated bibasilar atelectasis and/or developing infiltrate. Continue to encourage ambulation, PT/OT consultation, encourage incentive spirometer. 03/25/2021 Patient is postoperative day #3 are replacement. She is continuing the ICU. Catheter has been removed, patient states that she is urinating without difficulty. Patient is having bowel movements and passing gas. Patient does state that her reflux has improved with an at bedtime dose of Pepcid and a dose of Protonix. Her platelet count is stable at 105. Her hemoglobin is 7.3 today. Sodium was 134, CO2 21. Blood sugar at breakfast was 96. AST and ALT are trending down at 103 and 97 respectively. Her albumin is 3.3. Chest x-ray today reveals myocardial megaly with small bilateral pleural effusions and associated bibasilar atelectasis and/or infiltrate. There is no change from previous. Vital signs include a temp of 98.6, heart rate 76 sinus rhythm, blood pressure 115/89 and she is 97% on room air. Plan today is to remove the mediastinal chest tubes, Cordis. Plan is to remove epicardial pacemaker wires on Friday. Patient was cleared by cardiothoracic for transfer to [address] [place] [address] when a bed becomes available. 03/26/2021 Patient is seen and evaluated in follow up this morning with no acute overnight issues. Patient continues to increase activity as tolerated. Patient states she just walked to the bathroom and feels weak from that but denies any chest pain or worsening shortness of breath. Patient does state that she needs longer recovery time with exertion since she has had surgery. Patient blood sugars continue to be within normal limits and does not like having to be poked multiple times for accuchecks. Will discontinue and monitor closely for any signs of hypo or hyperglycemia. Patient is not a diabetic. Oral intake is adequate. Encouraged incentive spirometer. Review of systems: Constitutional: reports of fatigue, no reports of fever, or chills Cardiovascular: reports of chest wall pain Respiratory: No reports of shortness of breath, reports shallow respirations due to chest wall discomfort GI: No reports of nausea, vomiting, or diarrhea : No reports of dysuria or retention Neurovascular: reports of generalized weakness although improving Active Medications Acetaminophen (Acetaminophen Tab 325 Mg Tab) 650 mg PO Q4HR PRN PRN Reason: Fever and/ or Mild Pain Albuterol/Ipratropium (Ipratropium-Albuterol 3 Ml Neb) 3 ml INHALATION RT-Q2H PRN PRN Reason: Shortness Of Breath Or Wheezing Albuterol/Ipratropium (Ipratropium-Albuterol 3 Ml Neb) 3 ml INHALATION RT-QID REPLACED BY [facility] Last Admin: 03/26/21 15:36 Dose: Not Given Documented by: Alprazolam (Alprazolam 0.25 Mg Tab) 0.25 mg PO BID PRN PRN Reason: Anxiety Artificial Tears (Artificial Tears-Hypromellose Drops 15 Ml Btl) 1 drops BOTH EYES QAM REPLACED BY [facility] Last Admin: 03/26/21 09:51 Dose: Not Given Documented by: Aspirin (Aspirin 325 Mg Tab) 325 mg PO DAILY REPLACED BY [facility] Last Admin: 03/26/21 09:51 Dose: 325 mg Documented by: Atorvastatin Calcium (Atorvastatin 40 Mg Tab) 40 mg PO DAILY REPLACED BY [facility] Last Admin: 03/26/21 09:51 Dose: 40 mg Documented by: Bisacodyl (Bisacodyl 10 Mg Supp) 10 mg RECTAL DAILY PRN PRN Reason: Constipation Clopidogrel Bisulfate (Clopidogrel 75 Mg Tab) 75 mg PO DAILY REPLACED BY [facility] Last Admin: 03/26/21 09:51 Dose: 75 mg Documented by: Cyclosporine (Cyclosporine 0.05% Ophth 0.4 Ml Droperette) 1 drops BOTH EYES HS REPLACED BY [facility] Last Admin: 03/25/21 20:13 Dose: 1 drops Documented by: Famotidine (Famotidine 20 Mg Tab) 20 mg PO HS REPLACED BY [facility] Last Admin: 03/25/21 15:56 Dose: 20 mg Documented by: Heparin Sodium (Porcine) (Heparin Sodium,Porcine/Pf 5,000 Unit/0.5 Ml Syringe) 5,000 unit SQ Q8HR REPLACED BY [facility] Last Admin: 03/26/21 09:50 Dose: 5,000 unit Documented by: Amiodarone HCl 150 mg/ (Dextrose/Water) 103 mls @ 618 mls/hr IV .Q10M PRN; Protocol PRN Reason: A.FIB/FLUTTER Amiodarone HCl 360 mg/ (Dextrose/Water) 207.2 mls @ 34.533 mls/hr IV .Q6H PRN; Protocol PRN Reason: A.FIB/FLUTTER Amiodarone HCl 450 mg/ (Dextrose/Water) 250 mls @ 16.667 mls/hr IV .Q15H PRN; Protocol PRN Reason: A.FIB/FLUTTER Insulin Aspart (Insulin Aspart (Novolog) 100 Unit/Ml Vial) 0 unit SQ [facility] REPLACED BY [facility]; Protocol Last Admin: 03/26/21 12:08 Dose: Not Given Documented by: Ketotifen Fumarate (Ketotifen 0.025% Ophth Drops 5 Ml Btl) 1 drops BOTH EYES BID REPLACED BY [facility] Last Admin: 03/26/21 09:52 Dose: Not Given Documented by: Losartan Potassium (Losartan 50 Mg Tab) 50 mg PO DAILY@1200 REPLACED BY [facility] Last Admin: 03/26/21 12:22 Dose: 50 mg Documented by: Magnesium Hydroxide (Magnesium Hydroxide 2,400 Mg/10 Ml Cup) 2,400 mg PO BID PRN PRN Reason: Constipation Metoclopramide HCl (Metoclopramide 5 Mg/Ml 2 Ml Vial) 10 mg IVP Q4H PRN PRN Reason: Nausea And Vomiting Metoprolol Tartrate (Metoprolol Tartrate 25 Mg Tab) 25 mg PO BID REPLACED BY [facility] Last Admin: 03/26/21 09:51 Dose: 25 mg Documented by: Miscellaneous Information (Potassium Replacement Protocol 1 Each Misc) 1 each MISCELLANE DAILY PRN; Protocol PRN Reason: Per Protocol Miscellaneous Information (Magnesium Replacement Protocol 1 Each Misc) 1 each MISCELLANE DAILY PRN; Protocol PRN Reason: Per Protocol Miscellaneous Information (Phosphorus Replacement Protoco 1 Each Misc) 1 each MISCELLANE DAILY PRN; Protocol PRN Reason: Per Protocol Miscellaneous Information (Potassium Replacement Protocol 1 Each Misc) 1 each MISCELLANE DAILY PRN; Protocol PRN Reason: Per Protocol Mupirocin (Mupirocin 2% Oint 22 Gm Tube) 1 applic NASAL BID REPLACED BY [facility]; Protocol Last Admin: 03/26/21 09:52 Dose: 1 applic Documented by: Ondansetron HCl (Ondansetron 4 Mg/2 Ml Vial) 4 mg IVP Q6HR PRN PRN Reason: Nausea And Vomiting Last Admin: 03/22/21 17:15 Dose: 4 mg Documented by: Pantoprazole Sodium (Pantoprazole 40 Mg Tablet) 40 mg PO AC-BRKFST REPLACED BY [facility] Last Admin: 03/26/21 06:33 Dose: 40 mg Documented by: Sodium Chloride (Sodium Chloride 0.9% Flush 10 Ml Syringe) 10 ml IV BID REPLACED BY [facility] Last Admin: 03/26/21 10:03 Dose: Not Given Documented by: PHYSICAL EXAMINATION: GENERAL: Patient is awake, alert and oriented x 3, weak, and currently sitting up in the chair. HEENT: Pupils are round and equally reacting to light. EOMI. No scleral icterus. No conjunctival pallor. Normocephalic, atraumatic. No pharyngeal erythema. No thyromegaly. CARDIOVASCULAR: S1 and S2 present. No murmurs, rubs, or gallops. PULMONARY: diminished breath sounds bilaterally, Chest is clear to auscultation, no wheezing or crackles. ABDOMEN: Soft, nontender, nondistended, normoactive bowel sounds. No palpable organomegaly. MUSCULOSKELETAL: No joint swelling or deformity. EXTREMITIES: No cyanosis, clubbing, or pedal edema. NEUROLOGICAL: a&ox3, no focal deficits noted, diffuse weakness noted SKIN: No rashes. Assessment and plan: -Status post aortic valve replacement and postoperative hypoxic respiratory failure -Patient's hemoglobin A1c is 5.7 which was done this month. Patient is not diabetic, blood sugars are within normal range, will discontinue accuchecks as patient has not required any insulin -Symptomatic aortic valve regurgitation for which patient had severe aortic regurgitation -hyperlipidemia -Gastroesophageal reflux disease -History of migraines -DVT prophylaxis: As per primary service -GI prophylaxis -full code Plan: Recommend to continue current medications. Patient is not a diabetic and not requiring any coverage. Will discontinue accuchecks. Incentive spirometer at the bedside and encouraged to use at least 10 times every hour while awake. Encouraged increased activity as tolerated. Heart hugger noted and patient is using properly. Repeat labs and continue to monitor closely. Will continue to follow during hospitalization. Thank you for this consultation. Patient states she is going home once stabilized and discharged. Objective - Vital Signs Vital signs: Vital Signs Temp 98.2 F 03/26/21 07:40 Pulse 76 03/26/21 08:05 Resp 16 03/26/21 07:40 BP 120/78 03/26/21 07:40 Pulse Ox 97 03/26/21 07:40 Intake & Output 03/25/21 03/26/21 03/26/21 18:59 06:59 18:59 Intake Total 780 Output Total 1200 500 Balance -420 -500 Weight 58.5 kg Intake: IV 60 0.9 60 Oral 720 Output: Urine 1200 500 Other: Voiding Method Toilet Toilet # Bowel Movements 1 ABP, PAP, CO, CI - Last Documented Arterial Blood Pressure 117/62 Pulmonary Artery Pressure 19/7 Cardiac Output 4.4 Cardiac Index 2.8 - Labs CBC & Chem 7: 03/26/21 07:33 03/26/21 07:33 Labs: Abnormal Lab Results - Last 24 Hours (Table) 03/25/21 03/25/21 03/26/21 Range/Units 11:38 20:28 06:06 RBC (3.80-5.40) m/uL Hgb (11.4-16.0) gm/dL Hct (34.0-46.0) % Sodium (137-145) mmol/L Glucose (74-99) mg/dL POC Glucose (mg/dL) 102 H 150 H 105 H (75-99) mg/dL AST (14-36) U/L ALT (4-34) U/L Total Protein (6.3-8.2) g/dL Albumin (3.5-5.0) g/dL 03/26/21 03/26/21 Range/Units 07:33 07:33 RBC 2.34 L (3.80-5.40) m/uL Hgb 7.4 L (11.4-16.0) gm/dL Hct 22.1 L (34.0-46.0) % Sodium 135 L (137-145) mmol/L Glucose 121 H (74-99) mg/dL POC Glucose (mg/dL) (75-99) mg/dL AST 95 H (14-36) U/L ALT 97 H (4-34) U/L Total Protein 5.6 L (6.3-8.2) g/dL Albumin 3.3 L (3.5-5.0) g/dL
[2021-03-27 06:01] LABS: Glucose,Whole Blood 104 mg/dL (75-99)
[2021-03-27] MEDS: PANTOPRAZOLE 40 MG TABLET PO SCH (06:12)
[2021-03-27 07:54] VITALS: BP 119/70; RESP 16; TEMP 98.5
--- NOTE | 2021-03-27 08:13 | XR ---
EXAMINATION TYPE: XR chest 1V portable DATE OF EXAM: 03/27/2021 COMPARISON: Chest x-ray 03/26/2021 HISTORY: Postop aortic valve replacement, abnormal chest x-ray TECHNIQUE: Single frontal view of the chest is obtained. FINDINGS: Findings are stable. IMPRESSION: Bibasilar effusions and associated atelectasis. Stable heart and postop findings.
[2021-03-27] MEDS: IPRATROPIUM-ALBUTEROL 3 ML NEB INHALATION SCH ×2 (08:21→11:22)
[2021-03-27 08:27] VITALS: PULSE 76
--- NOTE | 2021-03-27 09:01 | P.PN ---
Subjective Progress Note Date: 03/27/21 Principal diagnosis: Severe aortic valve regurgitation. Previous history of hypertension, hyperlipidemia, previous tobacco dependence, arthritis, periodic epistaxis with previous cauterization, hiatal hernia, previous duodenal ulcers, moderate EtOH use 2-7 drinks per week, and family history of premature coronary artery disease with father from [place] at 52. Vaccinated against Covid with J&J vaccine in August 2020 POD #5 aortic valve replacement using a 21 mm Inspiris pericardial bioprosthesis, exclusion of the left atrial appendage using a 35 mm AtriClip, intraoperative transesophageal echocardiogram and epi-aortic scanning Postoperative acute blood loss anemia and thrombocytopenia, expected given hemodilution in cardiopulmonary bypass pump Elevated transaminases, expected The patient was seen and examined this morning with Dr. Gilliland, sitting up in a recliner in no acute distress. States pain is well controlled with current medication regimen, denies shortness of breath. Remains in sinus rhythm, hemodynamically stable. She has been ambulatory in the hallway without difficulty. No new concerns. States she feels ready to go home today. Objective - Vital Signs Vital signs: Vital Signs Temp 98.5 F 03/27/21 07:54 Pulse 76 03/27/21 08:27 Resp 16 03/27/21 07:54 BP 119/70 03/27/21 07:54 Pulse Ox 96 03/27/21 07:54 Intake & Output 03/26/21 03/27/21 03/27/21 18:59 06:59 18:59 Intake Total 1200 240 Output Total 1200 550 Balance 0 -550 240 Weight 58 kg Intake: Oral 1200 240 Output: Urine 1200 550 Other: Voiding Method Toilet # Voids 1 ABP, PAP, CO, CI - Last Documented Arterial Blood Pressure 117/62 Pulmonary Artery Pressure 19/7 Cardiac Output 4.4 Cardiac Index 2.8 - Exam CONSTITUTIONAL: Appears comfortable, cooperative, no acute distress RESPIRATORY: Lungs sounds diminished bilaterally. Respirations even, nonlabored. Currently on room air with oxygen saturation 94%. Able to achieve 1250 mL on incentive spirometry. Strong cough. CARDIOVASCULAR: S1, S2 present. Regular rate and rhythm, sinus rhythm on telemetry. Sternum stable. Palpable peripheral pulses bilaterally. No edema present. No calf pain or tenderness noted. Heart hugger in place with patient demonstrating appropriate use. Antiembolism stockings, SCDs present. GASTROINTESTINAL: Abdomen soft, nontender, nondistended. Active bowel sounds p resent 4 quadrants. Tolerating diet. Positive bowel movement GENITOURINARY: Continues to void clear, yellow urine. Output 1750 mL in the last 24 hours INTEGUMENTARY: Skin is warm and dry with evidence of good perfusion. Anterior chest incision well approximated NEUROLOGIC: Cranial nerves II through XII intact MUSKULOSKELETAL: Able to move all extremities, strength equal bilaterally, gait normal PSYCHIATRIC: Alert and oriented to person place and time, appropriate affect, intact judgment and insight - Allied health notes Allied health notes reviewed: nursing - Labs CBC & Chem 7: 03/26/21 07:33 03/26/21 07:33 Labs: Abnormal Lab Results - Last 24 Hours (Table) 03/26/21 03/26/21 03/27/21 Range/Units 16:17 19:30 06:00 POC Glucose (mg/dL) 109 H 129 H 104 H (75-99) mg/dL - Imaging and Cardiology Chest x-ray: report reviewed, image reviewed Assessment and Plan Assessment: 1. Severe aortic valve regurgitation, status post bioprosthetic aortic valve replacement 2. History of hypertension, treated 3. Hyperlipidemia, previously untreated, cholesterol 247, LDL 133 4. Previous tobacco dependence, preoperative FEV1 107% of predicted 5. Arthritis 6. Periodic epistaxis with previous cauterization by Dr. Hatfield 7. Hiatal hernia 8. Previous duodenal ulcers 9. Moderate EtOH use 2-7 drinks per week 10. Family history of premature coronary artery disease with father from [place] at 52 11. Postoperative acute blood loss anemia and thrombocytopenia, expected given hemodilution in cardiopulmonary bypass pump 12. Elevated transaminases, expected Plan: 1. Continue aspirin, statin, Plavix, beta chito therapy, Cozaar. 2. Encourage incentive spirometry use 10 times every hour while awake. Bronchodilators per pulmonology 3. Increase activity, ambulate as tolerated. PT/OT/cardiac rehab following 4. GI/DVT prophylaxis 5. Pain control with current medication regimen 6. Will give 20 mg IV push Lasix 1 7. Discharge planning in progress. Anticipate discharge to home with home care today Time with Patient: Greater than 30
[2021-03-27 09:18] LABS: HGB 7.7 gm/dL (11.4-16.0); MCHC 33.6 g/dL (31.0-37.0); MCV 95.2 fL (80.0-100.0); Mean Platelet Volume 7.7; Platelet Count 209 k/uL (150-450); RBC 2.42 m/uL (3.80-5.40); RDW 14.6 % (11.5-15.5); WBC 7.4 k/uL (3.8-10.6)
[2021-03-27] MEDS: ATORVASTATIN 40 MG TAB PO SCH (09:28)
[2021-03-27] MEDS: CLOPIDOGREL 75 MG TAB PO SCH (09:28)
[2021-03-27] MEDS: METOPROLOL TARTRATE 25 MG TAB PO SCH (09:28)
[2021-03-27] MEDS: ASPIRIN 325 MG TAB PO SCH (09:28)
[2021-03-27] MEDS: HEPARIN SODIUM,PORCINE/PF 5,000 UNIT/0.5 ML SYRINGE SQ SCH (09:28)
[2021-03-27] MEDS: KETOTIFEN 0.025% OPHTH DROPS 5 ML BTL BOTH EYES SCH (09:29)
[2021-03-27] MEDS: MUPIROCIN 2% OINT 22 GM TUBE NASAL SCH (09:29)
[2021-03-27] MEDS: ARTIFICIAL TEARS-HYPROMELLOSE DROPS 15 ML BTL BOTH EYES SCH (09:29)
[2021-03-27 09:50] LABS: ALT 97 U/L (4-34); AST 91 U/L (14-36); African American GFR (CKD) >90 (>60 ml/min/1.73 sqM); Albumin 3.4 g/dL (3.5-5.0); Alkaline Phosphatase 105 U/L (38-126); Anion Gap 7 mmol/L; Blood Urea Nitrogen 14 mg/dL (7-17); Calcium 9.4 mg/dL (8.4-10.2); Carbon Dioxide 27 mmol/L (22-30); Chloride 101 mmol/L (98-107); Glucose 127 mg/dL (74-99); Non-African American GFR(CKD) 88 (>60 ml/min/1.73 sqM); Potassium 3.4 mmol/L (3.5-5.1); Sodium 135 mmol/L (137-145); Total Bilirubin 0.9 mg/dL (0.2-1.3)
[2021-03-27] MEDS ORDERED: POTASSIUM CHLORIDE ER 20 MEQ TAB.ER PO STA (09:54)
[2021-03-27] MEDS ORDERED: FUROSEMIDE 10 MG/ML 2 ML VIAL IV ONE (10:00)
--- NOTE | 2021-03-28 05:02 | P.PN ---
Subjective Progress Note Date: 03/27/21 History of Present Illness Patient is a 62-year-old female status post aortic valve replacement postoperative day 0. Patient is presently intubated most probably will be extubated today. Patient is presently off nitroglycerin drip and norepinephrine drip. Patient is presently on propofol drip which is being weaned off and patient is on mechanical ventilator with assist-control ventilation set up respiratory rate of 12 and PEEP of 5, FiO2 of 80%. Patient has 2 mediastinal chest tubes patient has fairly good urine output. Pulmonary arterial pressures are 22/11 03/23/2021 Patient is seen and evaluated this morning and has been extubated and doing well currently sitting up in the chair. Heart hugger noted and patient continues with chest tubes. Patient has SCDs to bilateral lower extremities and continues with indwelling Gross catheter. Patient has incentive spirometer at the bedside as instructed and encouraged to continue to use at least 10 times every hour while awake and patient inspiration continues to be weak and guarded. Patient is continued on oxygen via nasal cannula. Blood count today is 10.0, hemoglobin is 9.3, current platelets are 138. Sodium is 137 with a potassium of 4.0 current creatinine is 0.61 and magnesium is 2.2. LFTs continue to be elevated and slightly up. Patient had a mild low-grade fever of 99.7 this morning. Patient has insulin drip as needed and in the low 110's. Patient has been started on diet.. 03/24/2021 Patient is evaluated today in the ICU. She is sitting up at the bedside, postoperative day #2 aortic valve replacement. Patient denies any cough or shortness of breath. She does denies mild incisional chest pain. Her main complaint today is her acid reflux. Due to her platelet count Pepcid was di scontinued yesterday however has been resumed for HS dosing. We will monitor her platelets closely. Labs reviewed today include a white blood cell count of 9.8, hemoglobin of 7.6. Sodium is 134, chloride 109, CO2 19. AST was 68, ALT 142, which are improving. Vital signs include a heart rate of 63 sinus rhythm, blood pressure 112/69, 95% 2 L nasal cannula. Patient is afebrile. Chest x-ray this morning shows worsening small bilateral pleural effusions with associated bibasilar atelectasis and/or developing infiltrate. Continue to encourage ambulation, PT/OT consultation, encourage incentive spirometer. 03/25/2021 Patient is postoperative day #3 are replacement. She is continuing the ICU. Catheter has been removed, patient states that she is urinating without difficulty. Patient is having bowel movements and passing gas. Patient does state that her reflux has improved with an at bedtime dose of Pepcid and a dose of Protonix. Her platelet count is stable at 105. Her hemoglobin is 7.3 today. Sodium was 134, CO2 21. Blood sugar at breakfast was 96. AST and ALT are trending down at 103 and 97 respectively. Her albumin is 3.3. Chest x-ray today reveals myocardial megaly with small bilateral pleural effusions and associated bibasilar atelectasis and/or infiltrate. There is no change from previous. Vital signs include a temp of 98.6, heart rate 76 sinus rhythm, blood pressure 115/89 and she is 97% on room air. Plan today is to remove the mediastinal chest tubes, Cordis. Plan is to remove epicardial pacemaker wires on Friday. Patient was cleared by cardiothoracic for transfer to [address] [place] [address] when a bed becomes available. 03/26/2021 Patient is seen and evaluated in follow up this morning with no acute overnight issues. Patient continues to increase activity as tolerated. Patient states she just walked to the bathroom and feels weak from that but denies any chest pain or worsening shortness of breath. Patient does state that she needs longer recovery time with exertion since she has had surgery. Patient blood sugars continue to be within normal limits and does not like having to be poked multiple times for accuchecks. Will discontinue and monitor closely for any signs of hypo or hyperglycemia. Patient is not a diabetic. Oral intake is adequate. Encouraged incentive spirometer. 03/27/2021 Patient is seen in follow up this morning dressed in her street clothes ready for discharge to home with home care being arranged. No acute overnight issues noted. Patient able to tolerate diet this am and has been up and walking independently. Encouraged IS and continued use in the outpatient setting. Potassium mildly low at 3.4 and will replace. Hemoglobin is stable at 7.7 with no active bleeding noted. Patient anticipating discharge soon. Review of systems: Constitutional: no reports of fatigue, no reports of fever, or chills Cardiovascular: reports of chest wall pain Respiratory: No reports of shortness of breath GI: No reports of nausea, vomiting, or diarrhea : No reports of dysuria or retention Neurovascular: no reports of generalized weakness Active Medications Acetaminophen (Acetaminophen Tab 325 Mg Tab) 650 mg PO Q4HR PRN PRN Reason: Fever and/ or Mild Pain Albuterol/Ipratropium (Ipratropium-Albuterol 3 Ml Neb) 3 ml INHALATION RT-Q2H PRN PRN Reason: Shortness Of Breath Or Wheezing Albuterol/Ipratropium (Ipratropium-Albuterol 3 Ml Neb) 3 ml INHALATION RT-QID [facility] Last Admin: 03/26/21 15:36 Dose: Not Given Documented by: Alprazolam (Alprazolam 0.25 Mg Tab) 0.25 mg PO BID PRN PRN Reason: Anxiety Artificial Tears (Artificial Tears-Hypromellose Drops 15 Ml Btl) 1 drops BOTH EYES QAM [facility] Last Admin: 03/26/21 09:51 Dose: Not Given Documented by: Aspirin (Aspirin 325 Mg Tab) 325 mg PO DAILY [facility] Last Admin: 03/26/21 09:51 Dose: 325 mg Documented by: Atorvastatin Calcium (Atorvastatin 40 Mg Tab) 40 mg PO DAILY [facility] Last Admin: 03/26/21 09:51 Dose: 40 mg Documented by: Bisacodyl (Bisacodyl 10 Mg Supp) 10 mg RECTAL DAILY PRN PRN Reason: Constipation Clopidogrel Bisulfate (Clopidogrel 75 Mg Tab) 75 mg PO DAILY [facility] Last Admin: 03/26/21 09:51 Dose: 75 mg Documented by: Cyclosporine (Cyclosporine 0.05% Ophth 0.4 Ml Droperette) 1 drops BOTH EYES HS [facility] Last Admin: 03/25/21 20:13 Dose: 1 drops Documented by: Famotidine (Famotidine 20 Mg Tab) 20 mg PO HS [facility] Last Admin: 03/25/21 15:56 Dose: 20 mg Documented by: Heparin Sodium (Porcine) (Heparin Sodium,Porcine/Pf 5,000 Unit/0.5 Ml Syringe) 5,000 unit SQ Q8HR [facility] Last Admin: 03/26/21 09:50 Dose: 5,000 unit Documented by: Amiodarone HCl 150 mg/ (Dextrose/Water) 103 mls @ 618 mls/hr IV .Q10M PRN; Protocol PRN Reason: A.FIB/FLUTTER Amiodarone HCl 360 mg/ (Dextrose/Water) 207.2 mls @ 34.533 mls/hr IV .Q6H PRN; Protocol PRN Reason: A.FIB/FLUTTER Amiodarone HCl 450 mg/ (Dextrose/Water) 250 mls @ 16.667 mls/hr IV .Q15H PRN; Protocol PRN Reason: A.FIB/FLUTTER Insulin Aspart (Insulin Aspart (Novolog) 100 Unit/Ml Vial) 0 unit SQ ACHS [facility]; Protocol Last Admin: 03/26/21 12:08 Dose: Not Given Documented by: Ketotifen Fumarate (Ketotifen 0.025% Ophth Drops 5 Ml Btl) 1 drops BOTH EYES BID [facility] Last Admin: 03/26/21 09:52 Dose: Not Given Documented by: Losartan Potassium (Losartan 50 Mg Tab) 50 mg PO DAILY@1200 [facility] Last Admin: 03/26/21 12:22 Dose: 50 mg Documented by: Magnesium Hydroxide (Magnesium Hydroxide 2,400 Mg/10 Ml Cup) 2,400 mg PO BID PRN PRN Reason: Constipation Metoclopramide HCl (Metoclopramide 5 Mg/Ml 2 Ml Vial) 10 mg IVP Q4H PRN PRN Reason: Nausea And Vomiting Metoprolol Tartrate (Metoprolol Tartrate 25 Mg Tab) 25 mg PO BID [facility] Last Admin: 03/26/21 09:51 Dose: 25 mg Documented by: Miscellaneous Information (Potassium Replacement Protocol 1 Each Misc) 1 each MISCELLANE DAILY PRN; Protocol PRN Reason: Per Protocol Miscellaneous Information (Magnesium Replacement Protocol 1 Each Misc) 1 each MISCELLANE DAILY PRN; Protocol PRN Reason: Per Protocol Miscellaneous Information (Phosphorus Replacement Protoco 1 Each Misc) 1 each MISCELLANE DAILY PRN; Protocol PRN Reason: Per Protocol Miscellaneous Information (Potassium Replacement Protocol 1 Each Misc) 1 each MISCELLANE DAILY PRN; Protocol PRN Reason: Per Protocol Mupirocin (Mupirocin 2% Oint 22 Gm Tube) 1 applic NASAL BID [facility]; Protocol Last Admin: 03/26/21 09:52 Dose: 1 applic Documented by: Ondansetron HCl (Ondansetron 4 Mg/2 Ml Vial) 4 mg IVP Q6HR PRN PRN Reason: Nausea And Vomiting Last Admin: 03/22/21 17:15 Dose: 4 mg Documented by: Pantoprazole Sodium (Pantoprazole 40 Mg Tablet) 40 mg PO AC-BRKFST [facility] Last Admin: 03/26/21 06:33 Dose: 40 mg Documented by: Sodium Chloride (Sodium Chloride 0.9% Flush 10 Ml Syringe) 10 ml IV BID [facility] Last Admin: 03/26/21 10:03 Dose: Not Given Documented by: PHYSICAL EXAMINATION: GENERAL: Patient is awake, alert and oriented x 3, and currently sitting up in the chair dressed and anxious about discharge. HEENT: Pupils are round and equally reacting to light. EOMI. No scleral icterus. No conjunctival pallor. Normocephalic, atraumatic. No pharyngeal erythema. No thyromegaly. CARDIOVASCULAR: S1 and S2 present. No murmurs, rubs, or gallops. PULMONARY: diminished breath sounds bilaterally, Chest is clear to auscultation, no wheezing or crackles. ABDOMEN: Soft, nontender, nondistended, normoactive bowel sounds. No palpable organomegaly. MUSCULOSKELETAL: No joint swelling or deformity. EXTREMITIES: No cyanosis, clubbing, or pedal edema. NEUROLOGICAL: a&ox3, no focal deficits noted, diffuse weakness noted SKIN: No rashes. Assessment and plan: -Status post aortic valve replacement and postoperative hypoxic respiratory failure -Patient's hemoglobin A1c is 5.7 which was done this month. Patient is not diabetic, blood sugars are within normal range, have discontinued accuchecks as patient has not required any insulin -Symptomatic aortic valve regurgitation for which patient had severe aortic regurgitation -hyperlipidemia -Gastroesophageal reflux disease -History of migraines -DVT prophylaxis: As per primary service -GI prophylaxis -full code Plan: Recommend to continue current medications. Patient is not a diabetic and not requiring any coverage. Will discontinue accuchecks. Incentive spirometer at the bedside and encouraged to use at least 10 times every hour while awake even in the outpatient setting. Encouraged increased activity as tolerated. Heart hugger noted and patient is using properly. Will continue to follow during hospitalization. Thank you for this consultation. Patient states she is awaiting paperwork for discharge home today. Objective - Vital Signs Vital signs: Vital Signs Temp 98.5 F 03/27/21 07:54 Pulse 72 03/27/21 08:21 Resp 16 03/27/21 07:54 BP 119/70 03/27/21 07:54 Pulse Ox 96 03/27/21 07:54 Intake & Output 03/26/21 03/27/21 03/27/21 18:59 06:59 18:59 Intake Total 1200 240 Output Total 1200 550 Balance 0 -550 240 Weight 58 kg Intake: Oral 1200 240 Output: Urine 1200 550 Other: Voiding Method Toilet # Voids 1 ABP, PAP, CO, CI - Last Documented Arterial Blood Pressure 117/62 Pulmonary Artery Pressure 19/7 Cardiac Output 4.4 Cardiac Index 2.8 - Labs CBC & Chem 7: 03/27/21 09:00 03/27/21 09:00 Labs: Abnormal Lab Results - Last 24 Hours (Table) 03/26/21 03/26/21 03/26/21 Range/Units 07:33 16:17 19:30 Sodium 135 L (137-145) mmol/L Glucose 121 H (74-99) mg/dL POC Glucose (mg/dL) 109 H 129 H (75-99) mg/dL AST 95 H (14-36) U/L ALT 97 H (4-34) U/L Total Protein 5.6 L (6.3-8.2) g/dL Albumin 3.3 L (3.5-5.0) g/dL 03/27/21 Range/Units 06:00 Sodium (137-145) mmol/L Glucose (74-99) mg/dL POC Glucose (mg/dL) 104 H (75-99) mg/dL AST (14-36) U/L ALT (4-34) U/L Total Protein (6.3-8.2) g/dL Albumin (3.5-5.0) g/dL
--- NOTE | 2021-03-28 09:56 | P.DS ---
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 Severe aortic valve regurgitation 2. History of hypertension, treated 3. Hyperlipidemia, previously untreated, cholesterol 247, LDL 133 4. Previous tobacco dependence, preoperative FEV1 107% of predicted 5. Arthritis 6. Periodic epistaxis with previous cauterization by Dr. Way 7. Hiatal hernia 8. Previous duodenal ulcers 9. Moderate EtOH use 10. Family history of premature coronary artery disease 11. Postoperative acute blood loss anemia and thrombocytopenia, expected 12. Elevated transaminases, expected, trending down PRINCIPAL PROCEDURE: 1. Aortic valve replacement using 21 mm Inspiris pericardial bioprosthesis 2. Exclusion of the left atrial appendage using a 35 mm AtriClip 3. Intraoperative transesophageal echocardiogram and epi-aortic scanning HISTORY OF PRESENT ILLNESS: This is a 70-year-old active female who follows on an outpatient basis with Dr. Marina for primary care and Dr. Souza for cardiology, who has a known and documented history of aortic valve regurgitation which was judged to be severe. She started experiencing dyspnea on exertion and fatigue over the last year with some atypical chest pain. Cardiac catheterization ruled out any significant coronary artery disease. The patient was referred to Dr. Gilliland from cardiothoracic surgery. She was recommended to undergo elective aortic valve replacement. The usual perioperative course was discussed in detail with the patient and her family, all risks and benefits were explained, all questions were answered, and consent was obtained to proceed with surgery. The patient was scheduled for surgery at the earliest possible date after obtaining dental clearance. HOSPITAL COURSE: The patient was brought to the hospital on 04/21/2021, taken to the preoperative area, prepared in the usual fashion, and subsequently taken to the operating room where Dr. Gilliland performed bioprosthetic aortic valve replacement. Upon completion of surgery the patient was transferred to the cardiovascular intensive care unit where she was recovered and monitored hemodynamically. She was extubated, all lines, tubes, and drips were discontinued when appropriate, and she was transferred to 3 S cardiac stepdown unit for further monitoring and rehabilitation. Her oxygen was titrated down, she continued to work with physical and occupational therapy, she was tolerating oral diet, her pain was controlled, and she was ready to be discharged to home with [facility] care on postoperative day #5. She received written and verbal instruction regarding her medications, activity restrictions, signs and symptoms requiring physician notification, and follow-up appointments. Patient Condition at Discharge: Stable Plan - Discharge Summary Discharge Rx Participant: Yes New Discharge Prescriptions: New Pantoprazole [Protonix] 40 mg PO AC-BRKFST #30 tab Aspirin 325 mg PO DAILY #30 tab Losartan [Cozaar] 50 mg PO DAILY@1200 #30 tab Furosemide [Lasix] 20 mg PO DAILY #7 tab Atorvastatin [Lipitor] 40 mg PO DAILY #30 tab Metoprolol Tartrate [Lopressor] 25 mg PO BID #60 tab Clopidogrel [Plavix] 75 mg PO DAILY #30 tab Acetaminophen Tab [Tylenol] 650 mg PO Q4HR PRN tab PRN Reason: Fever and/ or Mild Pain Continue Theratears 1 drop BOTH EYES QAM cycloSPORINE 0.05% OPHTH SOLN [Restasis] 1 applicator BOTH EYES HS Meclizine [Antivert] 25 mg PO TID PRN PRN Reason: Vertigo Famotidine [Pepcid] 20 mg PO W/SUPPER Olopatadine HCl [Pataday] 1 drop BOTH EYES DIRECTED ALPRAZolam [Xanax] 0.5 tab PO DAILY PRN PRN Reason: Anxiety Magnesium 250 mg PO DAILY valACYclovir HCL [Valtrex] 1,000 mg PO DAILY PRN PRN Reason: Cold Sores Discontinued Omeprazole [PriLOSEC] 40 mg PO QAM hydrALAZINE HCL [Apresoline] 25 mg PO BID Mupirocin 2% Oint [Bactroban 2% Oint] 1 applic NASAL BID #22 gm Aspirin 325 mg PO ONCE Discharge Medication List Meclizine [Antivert] 25 mg PO TID PRN 06/14/15 [History] Theratears 1 drop BOTH EYES QAM 06/14/15 [History] cycloSPORINE 0.05% OPHTH SOLN [Restasis] 1 applicator BOTH EYES HS 06/14/15 [History] Famotidine [Pepcid] 20 mg PO W/SUPPER 12/28/20 [History] Magnesium 250 mg PO DAILY 12/28/20 [History] Olopatadine HCl [Pataday] 1 drop BOTH EYES DIRECTED 03/13/21 [History] valACYclovir HCL [Valtrex] 1,000 mg PO DAILY PRN 03/13/21 [History] ALPRAZolam [Xanax] 0.5 tab PO DAILY PRN 03/22/21 [History] Acetaminophen Tab [Tylenol] 650 mg PO Q4HR PRN tab 03/27/21 [Rx] Aspirin 325 mg PO DAILY #30 tab 03/27/21 [Rx] Atorvastatin [Lipitor] 40 mg PO DAILY #30 tab 03/27/21 [Rx] Clopidogrel [Plavix] 75 mg PO DAILY #30 tab 03/27/21 [Rx] Furosemide [Lasix] 20 mg PO DAILY #7 tab 03/27/21 [Rx] Losartan [Cozaar] 50 mg PO DAILY@1200 #30 tab 03/27/21 [Rx] Metoprolol Tartrate [Lopressor] 25 mg PO BID #60 tab 03/27/21 [Rx] Pantoprazole [Protonix] 40 mg PO AC-BRKFST #30 tab 03/27/21 [Rx] Follow up Appointment(s)/Referral(s): Samuel Souza MD [STAFF PHYSICIAN] - 04/12/21 10:45 am [facility],Cardiac [NON-STAFF] - 4 Weeks (You will be called in approximately 4-6 weeks for evaluation for cardiac rehab) Sidney Gilliland MD [STAFF PHYSICIAN] - 04/20/21 10:00 am Camilla Rodriguez NPC [Nurse Practitioner] - 04/11/21 3:00 pm [facility], [NON-STAFF] - 1-2 Days Arden Marina DO [Primary Care Provider] - 04/02/21 11:15 am Romeo Zamudio NPC [Nurse Practitioner] - 04/03/21 11:00 am (Appointment will be at surgeons office behind [facility], [address]) Ambulatory/Diagnostic Orders: Complete Blood Count w/diff [LAB.AMB] Time Frame: 3 Days, Location: None Selected Comprehensive Metabolic Panel [LAB.AMB] Time Frame: 3 Days, Location: None Selected Activity/Diet/Wound Care/Special Instructions: DISCHARGE INSTRUCTIONS: 1. No driving for 4 weeks, or until physician gives their ok. 2. The patient should sleep in their own bed, no medical bed needed. 3. Stairs are not an issue. If the bedroom is upstairs, it is advised that the patient go up at night and down in the morning for the first week. Go slowly, using handrail and take 1 step at a time. 4. Heart hugger is to be worn 100% of the time until physician discontinues.(except when showering) 5. No lifting, pushing, or pulling more than 10 pounds for 12 weeks. The physician will advise of any restriction changes. 6. The patient is expected to continue to walk as much as possible. 7. Continue pain control per as needed orders. 8. Continue with incentive spirometry and splinting/heart hugger until otherwise directed by the physician. 9. Must shower daily using liquid antibacterial soap and a separate white washcloth for each individual incision. 10. Routine sternal incision care. No powders, lotions, ointments on incisions. No dressings are necessary on incisions unless they are draining. Dermabond tape is to remain on sternal incision until surgeon follow-up. 11. Please call surgeon/TURNAROUND ENGINEER for temp greater than 101 F or purulent drainage from incisions. 12. All prescriptions given by surgeon for 30 days. Refills need to be filled through test center administrator/primary care physician. 13. A Red armband has been placed on the patient. It should be worn for 30 days post surgery and will be removed by the cardiac surgeons. If an ER visit is necessary, please make sure the number on the Red armband is called. 14. You have been referred to and are expected to begin Cardiac Rehab in approximately 4-6 weeks. HOME HEALTH SERVICES TO PROVIDE: RN SKILLED HOME CARE SERVICES FOR POST-OP SURGICAL PATIENTS WITH THE FOLLOWING: Coronary Artery Bypass Surgery (CABG), Mitral Valve Replacement/Repair ( MVR), Aortic Valve Replacement/Repair (AVR) RN TO CONTINUE EDUCATION FROM ``ROAD TO A HEALTH HEART PATIENT EDUCATION MANUAL (GIVEN TO PATIENT IN THE HOSPITAL) MEDICATION RECONCILIATION WITH EDUCATION NEEDED ON FIRST HOME VISIT EMPHASIZE IMPORTANCE OF WEARING BREAST SUPPORT/HEART HUGGER ENCOURAGE USE OF INCENTIVE SPIROMETER 10 X EVERY HOUR WHILE AWAKE ENCOURAGE UTILIZATION OF LOWER EXTREMITY COMPRESSION STOCKINGS/JORGE HOSE and ELEVATE LEGS ABOVE LEVEL OF HEART WHILE AT REST. ENCOURAGE AMBULATION 3-5x/day INCREASING TOLERATES, WHILE AVOIDING EXTREMES IN TEMPERATURE FREQUENCY: RN TO OPEN THE PATIENT WITHIN 24 HOURS OF DISCHARGE FROM THE HOSPITAL WITH TELEHEALTH INSTALLED AT [facility], RN TO VISIT 2-3 X A WEEK FOR 4 WEEKS ESTABLISHED BY PATIENT NEEDS. LABORATORY: CBC, CMP TO BE DRAWN ON THE THIRD DAY HOME, (RAN STAT) FAX RESULTS TO [phone]. TELEHEALTH PARAMETERS: WEIGHT: NOTIFY MD OF WEIGHT GAIN OF 2 LBS IN 24 HOURS OR 5 LBS IN ONE WEEK HR: NOTIFY MD OF HR <55 BPM OR HR>100 BPM BP: NOTIFY MD IF BP <90/55 OR BP>140/100 O2 SAT: NOTIFY MD IF PO2<93% ON ROOM AIR SEND TELEHEALTH REPORT TO BUILDINGS AND GROUNDS COORDINATOR AND CARDIOVASCULAR SURGEON THE FIRST WEEK OF CARE AND THEN BI-WEEKLY. PLEASE ADDITIONALLY COMMUNICATE ANY ABNORMALS AND NEW FINDINGS TO THE SURGEONS OFFICE. Discharge Disposition: HOME WITH HOME HEALTH SERVICES
== END 2021-03-27 11:53 | disposition home health service (06) | DRG 219 ==
LOC: 2ORMAIN 03-22 06:23 → 2SICU 03-22 12:32 → 3SCARD 03-25 16:20
PROVIDERS: ADMIT Surgery; ATTEND Surgery
PROC: 5A1221Z Performance of Cardiac Output, Continuous (ICD-10-PCS; principal; 2021-03-22 08:00)
PROC: B24BZZ4 Ultrasonography of Heart with Aorta, Transesophageal (ICD-10-PCS; principal; 2021-03-22 08:00)
PROC: 02B70ZK Excision of Left Atrial Appendage, Open Approach (ICD-10-PCS; principal; 2021-03-22 08:00)
PROC: 02RF08Z Replacement of Aortic Valve with Zooplastic Tissue, Open Approach (ICD-10-PCS; principal; 2021-03-22 08:00)
PROC: 0BH17EZ Insertion of Endotracheal Airway into Trachea, Via Natural or Artificial Opening (ICD-10-PCS; 2021-03-22 08:00)
PROC: 5A1935Z Respiratory Ventilation, Less than 24 Consecutive Hours (ICD-10-PCS; 2021-03-22 08:00)
DX: I35.1 Nonrheumatic aortic (valve) insufficiency (principal); J96.01 Acute respiratory failure with hypoxia; D62 Acute posthemorrhagic anemia; J90 Pleural effusion, not elsewhere classified; J98.11 Atelectasis; D69.6 Thrombocytopenia, unspecified; Z00.6 Encounter for examination for normal comparison and control in clinical research program; E78.5 Hyperlipidemia, unspecified; I10 Essential (primary) hypertension; I25.10 Atherosclerotic heart disease of native coronary artery without angina pectoris; K21.9 Gastro-esophageal reflux disease without esophagitis; K44.9 Diaphragmatic hernia without obstruction or gangrene; M19.90 Unspecified osteoarthritis, unspecified site; R04.0 Epistaxis; R74.01 Elevation of levels of liver transaminase levels; Z79.82 Long term (current) use of aspirin; Z79.899 Other long term (current) drug therapy; Z82.49 Family history of ischemic heart disease and other diseases of the circulatory system; Z83.3 Family history of diabetes mellitus; Z81.8 Family history of other mental and behavioral disorders; Z90.89 Acquired absence of other organs; Z90.49 Acquired absence of other specified parts of digestive tract; Z98.42 Cataract extraction status, left eye; Z98.41 Cataract extraction status, right eye; G43.909 Migraine, unspecified, not intractable, without status migrainosus; Z83.79 Family history of other diseases of the digestive system; Z98.890 Other specified postprocedural states; Z87.11 Personal history of peptic ulcer disease; Z87.891 Personal history of nicotine dependence; Z90.710 Acquired absence of both cervix and uterus
CPT/HCPCS: 71045; 71046; 80051; 80053; 82330; 82805; 83735; 85025; 85027; 85520; 85610; 85730; 86850; 86891; 86900; 86901; 86920; 88305; 88311; 94002; 94640; 94760

== ENCOUNTER → 2021-06-06 | Outpatient (CLI) | payer MEDICARE, BC ==
[2021-06-06 15:55] LABS: ALT 19 U/L (8-44); AST 26 U/L (13-35); African American GFR (CKD) 68.9 (60.0-200.0); Albumin 4.2 g/dL (3.8-4.9); Albumin/Globulin Ratio 1.46 (1.60-3.17); Alkaline Phosphatase 75 U/L (41-126); BUN/Creat Ratio 14.09 Ratio (12.00-20.00); Blood Urea Nitrogen 13.7 mg/dL (9.0-27.0); Carbon Dioxide 25.9 mmol/L (20.0-27.5); Chloride 102 mmol/L (96-109); Chol/HDL Ratio 2.71 Ratio; Globulin 2.9 g/dL (1.6-3.3); Glucose 88 mg/dL (70-110); LDL Cholesterol,Calculated 140.6 mg/dL (0.0-131.0); Non-African American GFR(CKD) 59.4 (60.0-200.0); Potassium 4.7 mmol/L (3.5-5.5); Sodium 138 mmol/L (135-145); Total Protein 7.1 g/dL (6.2-8.2); VLDL Calculation 14.56 mg/dL (5.00-40.00)
== END | disposition home or self-care (01) ==
LOC: LABWHC1 07:49
PROVIDERS: ATTEND Nurse Practitioner Adult Health
DX: E78.2 Mixed hyperlipidemia (principal)
CPT/HCPCS: 36415; 80053; 80061

== ENCOUNTER 2021-10-15 12:46 | Emergency (ER) | payer MEDICARE ==
[2021-10-15 13:47] VITALS: TEMP 97.6
[2021-10-15] MEDS ORDERED: ACETAMINOPHEN TAB 325 MG TAB PO STA (17:50)
--- NOTE | 2021-10-15 18:53 | XR ---
EXAMINATION TYPE: XR chest 2V DATE OF EXAM: 10/15/2021 COMPARISON: 04/11/2021 HISTORY: Heart surgery. Fall. Chest pain TECHNIQUE: 3 views FINDINGS: Heart is normal. Lungs are clear of infiltrate. There are sternal wires. Costophrenic angle s are clear. No pleural effusion or pneumothorax. Thoracic spine shows no compression fracture. IMPRESSION: No active cardiac pulmonary disease. No adverse change. No sign of traumatic injury.
--- NOTE | 2021-10-15 19:05 | XR ---
EXAMINATION TYPE: XR tibia fibula RT DATE OF EXAM: 10/15/2021 COMPARISON: NONE HISTORY: Fall. Pain TECHNIQUE: 3 views FINDINGS: Tibia and fibula appear intact. There is Achilles calcaneal spurring. Knee joint and ankle joint appear intact. IMPRESSION: No acute abnormality of the right tibia and fibula. Possible degenerative cyst formation in the lateral aspect of the dome of the talus.
--- NOTE | 2021-10-15 19:20 | CT ---
EXAMINATION TYPE: CT brain veronicaine wo con DATE OF EXAM: 10/15/2021 COMPARISON: None HISTORY: fall CT DLP: combined DLP 987.2 mGycm Automated exposure control for dose reduction was used. Ventricles have normal size. There is no mass effect or midline shift. There is no sign of intracrani al hemorrhage. The calvarium is intact. Skull base is intact. There is normal aeration of the mastoid sinuses. Cervical vertebra have normal alignment. There is degenerative spurring from C4 to C7. Facet joints a re intact. There is multilevel mild cervical facet arthropathy. Prevertebral soft tissues are intact. There is fluid level left maxillary sinus. IMPRESSION: Mild multilevel cervical spondylotic changes. No fracture. No acute intracranial abnormality. Left maxillary fracture noted.
--- NOTE | 2021-10-15 19:28 | CT ---
EXAMINATION TYPE: CT facial bones wo con DATE OF EXAM: 10/15/2021 COMPARISON: None HISTORY: fall CT DLP: combined DLP 987.2 mGycm Automated exposure control for dose reduction was used. Images obtained from the bottom of the mandible to the top of the frontal sinuses without contrast. The mandibular ring is intact. Temporomandibular joints are intact. There is oblique fracture posteri or left side zygomatic arch. There is comminuted fracture of the lateral and anterior wall of the lef t maxillary sinus. There is fluid level left maxillary sinus. There is a minimal blowout fracture of the floor of the left bony orbit. There is depression of the fragment 3 mm. No evidence of intraorbit al mass. The globes are symmetric. No intraorbital air. This fracture of the lateral wall of the left bony orbit. The nasal bone is intact. The skull base is intact with normal aeration of the mastoid sinuses. IMPRESSION: There is a tripod type fracture of the left zygoma there is fracture through the lateral wall of the left orbit in the anterior and lateral suárez of the left maxillary sinus. There is a mild blowout fra cture of the floor of the left bony orbit. There is some hemorrhage in the left maxillary sinus.
[2021-10-15] MEDS ORDERED: TOPICAL SKIN ADHESIVE 1 EACH AMP TOPICAL ONE (20:31)
[2021-10-15] MEDS ORDERED: CEPHALEXIN 500 MG CAP PO STA (20:41)
--- NOTE | 2021-10-15 20:52 | ED ---
Fall HPI - General Chief Complaint: Fall Stated Complaint: fall, head injury Time Seen by Provider: 10/15/21 17:38 Source: patient Mode of arrival: wheelchair - History of Present Illness Initial Comments: Patient is a 8-year-old female presenting for evaluation after a fall. Patient was going up the steps when she accidentally tripped and landed on her right side of the face. Patient is complaining of pain around the right eye, on the right side of the chest, and on the left pérez. Patient states that she was slightly nauseous immediately following the incident, otherwise no nausea or vomiting. Patient states that she did not experience any chest pain, shortness of breath, dizziness or lightheadedness prior to the fall. She did not lose consciousness, is not on blood thinners, can't remember everything before and after the fall. She was seen at urgent care who directed her to the ER. She is not complaining of any pain with eye movement, vision or hearing changes, weakness, loss of range of motion in the extremities, fever, chills, abdominal pain, dysuria, hematuria, urgency, frequency, back pain. - Related Data Home Medications Medication Instructions Recorded Confirmed Theratears 1 drop BOTH EYES DAILY 06/14/15 10/15/21 cycloSPORINE 0.05% OPHTH SOLN 1 applicator BOTH EYES BID 06/14/15 10/15/21 [Restasis] Aspirin EC [Ecotrin Low Dose] 81 mg PO DAILY 10/15/21 10/15/21 Cholecalciferol [Vitamin D3 (25 25 mcg PO DAILY 10/15/21 10/15/21 Mcg = 1000 Iu)] Famotidine [Pepcid AC] 10 mg PO HS 10/15/21 10/15/21 Fluticasone Nasal Saxe [Flonase 1 spray EA NOSTRIL DAILY PRN 10/15/21 10/15/21 Nasal Saxe] Losartan [Cozaar] 50 mg PO DAILY 10/15/21 10/15/21 Metoprolol Tartrate [Lopressor] 12.5 mg PO HS 10/15/21 10/15/21 Omeprazole 40 mg PO DAILY 10/15/21 10/15/21 Previous Rx's Medication Instructions Recorded Cephalexin [Keflex] 500 mg PO Q12HR 7 Days #14 cap 10/15/21 Allergies Allergy/AdvReac Type Severity Reaction Status Date / Time amoxicillin trihydrate AdvReac Nausea & Verified 10/15/21 20:41 [From Amoxil] Vomiting & Diarrhea clarithromycin AdvReac Nausea & Verified 10/15/21 20:41 Vomiting & Diarrhea Review of Systems ROS Statement: Those systems with pertinent positive or pertinent negative responses have been documented in the HPI. ROS Other: All systems not noted in ROS Statement are negative. Past Medical History Past Medical History: GERD/Reflux, Osteoarthritis (OA) Additional Past Medical History / Comment(s): bronchits 3-4 years ago, gets nose bleeds(has had bleeds cauterized), migraines,colitis in her 30's anf 40's hiatal hernia, duodenal ulcers 1988, past fibroids-had hysterectomy. History of Any Multi-Drug Resistant Organisms: None Reported Past Surgical History: Adenoidectomy, Appendectomy, Cholecystectomy, Hysterectomy, Orthopedic Surgery, Tonsillectomy Additional Past Surgical History / Comment(s): lizzy breast and cervical bx were neg,egd/colonoscopy, bunionectomy Past Anesthesia/Blood Transfusion Reactions: Motion Sickness, Postoperative Nausea & Vomiting (PONV) Past Psychological History: No Psychological Hx Reported Smoking Status: Never smoker Past Alcohol Use History: None Reported Past Drug Use History: None Reported - Past Family History Father Family Medical History: Diabetes Mellitus, Myocardial Infarction (LA) Additional Family Medical History / Comment(s): first mi age 48 then had massive mi at age 52() Mother Family Medical History: Congestive Heart Failure (CHF) Additional Family Medical History / Comment(s): c-diff, mental issues General Exam Limitations: no limitations General appearance: alert, in no apparent distress Head exam: Present: atraumatic, normocephalic, normal inspection Expanded Head exam: Present: other (Tenderness surrounding the right eye, especially inferior to the eye). Absent: raccoon eyes, newton's sign Eye exam: Present: normal appearance, EOMI. Absent: scleral icterus Neck exam: Present: normal inspection Respiratory exam: Present: normal lung sounds bilaterally. Absent: respiratory distress, wheezes, rales, rhonchi, stridor Cardiovascular Exam: Present: regular rate, normal rhythm, normal heart sounds. Absent: systolic murmur, diastolic murmur, rubs, gallop, clicks GI/Abdominal exam: Absent: distended Neurological exam: Present: alert, oriented X3, CN II-XII intact Psychiatric exam: Present: normal affect, normal mood Skin exam: Present: warm, dry, intact, normal color. Absent: rash Course Vital Signs 10/15/21 10/15/21 13:43 21:00 Temperature 97.6 F Pulse Rate 64 78 Respiratory 18 16 Rate Blood Pressure 149/88 131/76 O2 Sat by Pulse 100 98 Oximetry Medical Decision Making - Medical Decision Making Patient is a 71-year-old female presenting for evaluation post fall. Patient tripped going up the stairs today landing on the right side of her face. She is complaining of pain surrounding the eye, on the right side of the chest, and on the left pérez. On exam extraocular movements are intact, visual acuity is 20/25 both, 20/30 right, 20/40 left. X-ray of the leg and chest are negative. CT of the brain and cervical spine without contrast is negative for any intracranial process. There is a tripod type fracture of the left zygoma there is fracture through the lateral wall of the left orbit in the anterior and lateral suárez of the left maxillary sinus. There is a mild blow out fracture of the floor of the left bony orbit. There is some hemorrhage in the left maxillary sinus. I spoke with Dr. Hurst from ENT, he stated the patient could follow-up with him in the office and to place her on Keflex 500 mg twice a day. He advised instructing her to not blow the nose. I also spoke with ophthalmology on-call Dr. Hernandez, he said that this type of cases mostly handled by ENT, he would be happy to follow up with the patient in the office. I informed the patient of the findings. I encouraged her to utilize ice, Motrin, Tylenol for pain control. I instructed her not to blow her nose. She was given her first dose of Keflex 500 mg here in the ER, sent home with a prescription for Keflex 500 mg twice a day 7 days. I provided her with the necessary information to schedule follow-up with Dr. Hurst and Dr. Hernandez in the office. There is a small wound on the left pérez, I applied Dermabond and covered the wound. Keep wound clean and dry. Follow-up with PCP in one to 2 days. I informed the patient on return parameters and answered all questions. Report back to ER with any worsening symptoms. Patient conveyed verbal understanding and agreed to the plan. I discussed this case with my attending Dr. Brambila. Disposition Clinical Impression: Facial fracture Disposition: HOME SELF-CARE Condition: Good Instructions (If sedation given, give patient instructions): Facial Fracture (DC), Head Injury (DC), Skin Adhesive Care (ED), Fall Prevention (ED) Additional Instructions: Follow-up with ENT and ophthalmology. Avoid blowing the nose. Report back to ER if any worsening symptoms. Follow up with primary care. Prescriptions: Cephalexin [Keflex] 500 mg PO Q12HR 7 Days #14 cap Is patient prescribed a controlled substance at d/c from ED?: No Referrals: Arden Marina DO [Primary Care Provider] - 1-2 days Nabeel Hurst MD [STAFF PHYSICIAN] - 1-2 days Rodney Hernandez MD [STAFF PHYSICIAN] - 1-2 days Time of Disposition: 20:51
[2021-10-15 21:13] VITALS: BP 131/76; PULSE 78; RESP 16
== END 2021-10-15 21:12 | disposition home or self-care (01) ==
LOC: EC 12:46
DX: S02.40FA Zygomatic fracture, left side, initial encounter for closed fracture (principal); S02.32XA Fracture of orbital floor, left side, initial encounter for closed fracture; K21.9 Gastro-esophageal reflux disease without esophagitis; M19.90 Unspecified osteoarthritis, unspecified site; Z79.82 Long term (current) use of aspirin; Z88.1 Allergy status to other antibiotic agents; Z90.49 Acquired absence of other specified parts of digestive tract; Z90.710 Acquired absence of both cervix and uterus; W10.8XXA Fall (on) (from) other stairs and steps, initial encounter
CPT/HCPCS: 70450; 70486; 71046; 72125; 99284

== ENCOUNTER → 2022-02-21 | Outpatient (CLI) | payer MEDICARE ==
--- NOTE | 2022-02-21 15:35 | XR ---
EXAMINATION TYPE: XR Hip LT and AP Pelvis DATE OF EXAM: 02/21/2022 COMPARISON: NONE HISTORY: Pain TECHNIQUE: A single AP view of the pelvis is obtained. Two views of the left hip are obtained. FINDINGS: There is no acute fracture/dislocation evident in the pelvis. Nonspecific gas pattern seen with calcifications in the pelvis appear vascular. Diffuse mild osteopenia. SI joints symmetric. Hyp ertrophic degenerative changes lower lumbar spine. Mild concentric narrowing of the hip joint. IMPRESSION: 1. Mild bilateral joint arthropathy. 2. Diffuse osteopenia 3. Degenerative disc disease lower lumbar spine
--- NOTE | 2022-02-21 15:36 | XR ---
EXAM TYPE: LUMBAR SPINE X RAY SERIES COMPARISON: NONE HISTORY: Pain TECHNIQUE: Three views are submitted. FINDINGS: Diffuse osteopenia with surgical clips in the right upper quadrant. There is multilevel moderate degenerative disc disease with a grade 1 anterolisthesis L3 on L4. Advan mary ann facet arthropathy involving the visualized lumbar spine. Retrolisthesis of L1 relative to L2 and T12 relative to L1 noted. IMPRESSION: 1. Multilevel moderate degenerative disc disease with grade 1 anterolisthesis of L3 on L4 and minimal anterolisthesis L4 and L5. Advanced facet arthropathy likely contributes to multilevel foraminal enl argement. Consider MRI follow-up.
== END | disposition home or self-care (01) ==
LOC: RADXRMAIN 14:23
PROVIDERS: ATTEND Nurse Practitioner Family
DX: M16.0 Bilateral primary osteoarthritis of hip (principal); M51.36 Other intervertebral disc degeneration, lumbar region; M47.816 Spondylosis without myelopathy or radiculopathy, lumbar region; M43.16 Spondylolisthesis, lumbar region
CPT/HCPCS: 72100; 73502

== ENCOUNTER → 2022-03-06 | Outpatient (CLI) | payer MEDICARE ==
--- NOTE | 2022-03-08 18:38 | MM ---
Reason for Exam: Screening (asymptomatic). Last screening mammogram was performed 12 month(s) ago. Patient History: Menarche at age 13. Patient has no children. Left ovary removed at age 46. Right ovary removed at age 46. Hysterectomy at age 46. Postmenopausal. Patient used Estrogen for 5 years. Benign Stereotactic Core Biopsy. Benign Excisional Biopsy. Risk Values: Nicky 5 year model risk: 2.9%. NCI Lifetime model risk: 8.3%. Prior Study Comparison: 09/07/2018 Screening Mammogram, Unknown. 02/18/2020 Bilateral Screening Mammogram, [facility]. 03/05/2021 Bilateral Screening Mammogram, [facility]. Tissue Density: There are scattered fibroglandular densities. Findings: Analyzed By CAD. There is no suspicious group of microcalcifications or new suspicious mass in either breast. Overall Assessment: Negative, BI-RAD 1 Management: Screening Mammogram of both breasts in 1 year. A clinical breast exam by your physician is recommended on an annual basis and results should be correlated with mammographic findings. Electronically signed and approved by: Srikanth Gordon DO
== END | disposition home or self-care (01) ==
LOC: RADMAMWWP 07:55
PROVIDERS: ATTEND Family Medicine
DX: Z12.31 Encounter for screening mammogram for malignant neoplasm of breast (principal); Z78.0 Asymptomatic menopausal state; Z98.890 Other specified postprocedural states
CPT/HCPCS: 77063; 77067

== ENCOUNTER → 2022-06-28 | Outpatient (CLI) | payer MEDICARE ==
--- NOTE | 2022-06-28 14:56 | CT ---
EXAMINATION TYPE: CT abdomen pelvis wo/w con DATE OF EXAM: 06/28/2022 COMPARISON: CT angiogram chest dated 03/01/2021 HISTORY: right sided abdominal pain CT DLP: 1287 mGycm Automated exposure control for dose reduction was used. TECHNIQUE: Helical acquisition of images was performed from the lung bases through the pelvis. CONTRAST: Performed with Oral Contrast and without and with IV Contrast, patient injected with 70cc mL of Isovu e 300. FINDINGS: The lung bases are clear. There are surgical absence of gallbladder. There is a 17 mm somewhat ill-defined hypodensity in the superior aspect of the liver which was seen on the prior CT angiogram of the chest dated 03/11/2021 and is stable. It most likely represents a missael ign hemangioma despite the fact that there is no definite peripheral enhancement on the delayed image s.. There are no focal masses or organomegaly involving the pancreas, spleen or adrenal glands. The kidneys excrete contrast promptly and symmetrically is no solid renal mass or process. The calibe r the abdominal aorta is normal. The bowel loops are normal in caliber is no evidence of dilatation or obstruction. No inflammatory ch anges are identified in the bowel wall or mesentery and there is no free intraperitoneal air or fluid . There is no pelvic mass, free fluid, abscess or adenopathy. No focal lytic or blastic osseous abnormalities are seen. IMPRESSION: 1. No acute changes within the abdomen or pelvis. 2. Low-density lesion within the liver as described above. It is most likely benign as it is stable d ating back to 03/01/2021
== END | disposition home or self-care (01) ==
LOC: RADCTMAIN 11:06
PROVIDERS: ATTEND Family Medicine
DX: K76.89 Other specified diseases of liver (principal); R10.11 Right upper quadrant pain
CPT/HCPCS: 82565; 84520; 74178; 36415; Q9967

== ENCOUNTER → 2022-07-03 | Outpatient (CLI) | payer MEDICARE ==
[2022-07-03 16:33] LABS: ALT 16 U/L (8-44); AST 20 U/L (13-35); African American GFR (CKD) 70.5 (60.0-200.0); Albumin 3.9 g/dL (3.8-4.9); Alkaline Phosphatase 62 U/L (41-126); BUN/Creat Ratio 18.57 Ratio (12.00-20.00); Blood Urea Nitrogen 17.6 mg/dL (9.0-27.0); Calcium 9.9 mg/dL (8.7-10.3); Carbon Dioxide 26.8 mmol/L (20.0-27.5); Chloride 103 mmol/L (96-109); Chol/HDL Ratio 2.85 Ratio; Globulin 2.1 g/dL (1.6-3.3); Glucose 88 mg/dL (70-110); LDL Cholesterol,Calculated 135.3 mg/dL (0.0-131.0); Non-African American GFR(CKD) 60.8 (60.0-200.0); Sodium 139 mmol/L (135-145)
== END | disposition home or self-care (01) ==
LOC: LABWHC1 07:39
PROVIDERS: ATTEND Internal Medicine Interventional Cardiology
DX: E78.2 Mixed hyperlipidemia (principal)
CPT/HCPCS: 36415; 80053; 80061

== ENCOUNTER → 2022-12-20 | Outpatient (CLI) | payer MEDICARE ==
[2022-12-20 11:22] LABS: ALT 19 U/L (8-44); AST 23 U/L (13-35); Chol/HDL Ratio 2.18 Ratio; LDL Cholesterol,Calculated 115.3 mg/dL (0.0-131.0); VLDL Calculation 10.68 mg/dL (5.00-40.00)
== END | disposition home or self-care (01) ==
LOC: LABWHC1 07:54
PROVIDERS: ATTEND Nurse Practitioner Adult Health
DX: E78.2 Mixed hyperlipidemia (principal)
CPT/HCPCS: 36415; 80061; 84450; 84460

== ENCOUNTER → 2023-01-06 | Outpatient (CLI) | payer MEDICARE ==
--- NOTE | 2023-01-06 11:18 | XR ---
EXAM TYPE: LUMBAR SPINE X RAY SERIES COMPARISON: 02/21/2022 HISTORY: Pain TECHNIQUE: 3 views are submitted. FINDINGS: Alignment is anatomic. The pedicles are intact. The transverse processes are intact. There is no o r spondylolisthesis. Diffuse osteopenia. Surgical clips gallbladder fossa. There is multilevel moder ate to severe degenerative disc disease with severe facet arthropathy. Minimal anterolisthesis of L2 on L3 and L3 on L4. There is a retrolisthesis of L1 relative to L2 and T12 relative to L1. IMPRESSION: 1. Multilevel moderate to severe degenerative disc disease with multilevel severe facet arthropathy. There likely is significant multilevel foraminal encroachment, consider follow-up MRI.
--- NOTE | 2023-01-06 11:25 | XR ---
EXAMINATION TYPE: XR Hip RT and AP Pelvis DATE OF EXAM: 01/06/2023 COMPARISON: NONE HISTORY: Pain TECHNIQUE: A single AP view of the pelvis is obtained. Two views of the right hip are obtained. FINDINGS: There is no acute fracture/dislocation evident in the pelvis. The hip and sacroiliac join ts appear symmetric and unremarkable. The overlying soft tissue appears unremarkable. Hypertrophic degenerative changes lower lumbar spine. Vascular phleboliths noted in the pelvis. Mild diffuse osteopenia. Two views of right hip show no acute fracture or dislocation. No focal lytic or sclerotic lesion see n in the proximal right femur. The overlying soft tissue is unremarkable. IMPRESSION: There is no acute fracture or dislocation in the pelvis or right hip.
--- NOTE | 2023-01-06 11:28 | XR ---
EXAMINATION TYPE: XR hand complete bilateral DATE OF EXAM: 01/06/2023 COMPARISON: 11/18/2014 Small bony protrusion at the head of the second metacarpal stable from prior exam and may represent a small osteochondroma. There are no erosive changes. There is a well ossified density adjacent to the ulnar styloid may represent accessory ossicle or remote trauma. Benign cystic changes involving the lunate and scaphoid. HISTORY: Pain TECHNIQUE: Three views bilateral hand are submitted. FINDINGS: The osseous structures are intact. Left hand: There is mild first carpal metacarpal joint arthropathy of the right hand and moderate to severe changes of the left hand. Stable mild narrowing of the MCP joints of all digits. No erosive ch anges. Right hand: There is mild arthropathy of the first carpometacarpal joint. No erosive changes. There a lso small bony protuberance off the head of the second metacarpal which may be related to small osteo chondroma or spur. Mild narrowing of all MCP joints digits with no evidence of erosive change. IMPRESSION: 1. Moderate to severe first carpometacarpal arthropathy of the left hand. 2. Mild first carpal metacarpal joint arthropathy of the right hand.
== END | disposition home or self-care (01) ==
LOC: RADXRMAIN 09:19
PROVIDERS: ATTEND Family Medicine
DX: M18.0 Bilateral primary osteoarthritis of first carpometacarpal joints (principal); M51.36 Other intervertebral disc degeneration, lumbar region; M47.816 Spondylosis without myelopathy or radiculopathy, lumbar region; M25.551 Pain in right hip
CPT/HCPCS: 72100; 73502

== ENCOUNTER → 2023-03-13 | Outpatient (CLI) | payer MEDICARE ==
--- NOTE | 2023-03-14 09:04 | MM ---
Reason for Exam: Screening (asymptomatic). Last screening mammogram was performed 12 month(s) ago. Patient History: Menarche at age 13. Patient has no children. Left ovary removed at age 46. Right ovary removed at age 46. Hysterectomy at age 46. Postmenopausal. Patient used Estrogen for 5 years. Benign Stereotactic Core Biopsy. Benign Excisional Biopsy. Risk Values: Nicky 5 year model risk: 2.9%. NCI Lifetime model risk: 7.9%. Prior Study Comparison: 02/18/2020 Bilateral Screening Mammogram, [facility]. 03/05/2021 Bilateral Screening Mammogram, [facility]. 03/06/2022 Bilateral MG 3D screening mammo w/cad, [facility]. Tissue Density: The breast tissue is heterogeneously dense. This may lower the sensitivity of mammography. Findings: Analyzed By CAD. There is no suspicious group of microcalcifications or new suspicious mass in either breast. Overall Assessment: Benign, BI-RAD 2 Management: Screening Mammogram of both breasts in 1 year. . Patient should continue monthly self-breast exams. A clinical breast exam by your physician is recommended on an annual basis. This exam should not preclude additional follow-up of suspicious palpable abnormalities. Note on Nicky scores and lifetime risk: 1. A Nicky score greater than 3% is considered moderate risk. If this is the case, consider specialist referral to assess eligibility for a risk reducing agent. 2. If overall lifetime risk for the development of breast cancer is 20% or higher, the patient may qualify for future screening with alternating mammogram and breast MRI. Electronically signed and approved by: Andrey Wiseman M.D. Radiologis
== END | disposition home or self-care (01) ==
LOC: RADMAMWWP 09:29
PROVIDERS: ATTEND Family Medicine
DX: Z12.31 Encounter for screening mammogram for malignant neoplasm of breast (principal); Z78.0 Asymptomatic menopausal state
CPT/HCPCS: 77063; 77067

== ENCOUNTER → 2024-03-24 | Outpatient (CLI) | payer MEDICARE ==
--- NOTE | 2024-03-25 14:23 | MM ---
Reason for Exam: Screening (asymptomatic). Last mammogram was performed 1 year(s) and 1 month(s) ago. Patient History: Menarche at age 13. Patient has no children. Left ovary removed at age 46. Right ovary removed at age 46. Hysterectomy at age 46. Postmenopausal. Patient used Estrogen for 5 years. Benign Stereotactic Core Biopsy. Benign Excisional Biopsy. Risk Values: Nicky 5 year model risk: 2.9%. NCI Lifetime model risk: 7.5%. Prior Study Comparison: 03/05/2021 Bilateral Screening Mammogram, [facility]. 03/06/2022 Bilateral MG 3D screening mammo w/cad, [facility]. 03/13/2023 Bilateral MG 3D screening mammo w/cad, [facility]. Tissue Density: The breasts are heterogeneously dense, which may obscure small masses. Findings: Analyzed By CAD. There is no suspicious group of microcalcifications or new suspicious mass in either breast. Overall Assessment: Benign, BI-RAD 2 Management: Screening Mammogram of both breasts in 1 year. . Patient should continue monthly self-breast exams. A clinical breast exam by your physician is recommended on an annual basis. This exam should not preclude additional follow-up of suspicious palpable abnormalities. Note on Nicky scores and lifetime risk: 1. A Nicky score greater than 3% is considered moderate risk. If this is the case, consider specialist referral to assess eligibility for a risk reducing agent. 2. If overall lifetime risk for the development of breast cancer is 20% or higher, the patient may qualify for future screening with alternating mammogram and breast MRI. [facility], , 03/25/2024 2:20 PM. Electronically signed and approved by: Andrey Wiseman M.D. Radiologis
== END | disposition home or self-care (01) ==
LOC: RADMAMWWP 12:58
PROVIDERS: ATTEND Family Medicine
DX: Z12.31 Encounter for screening mammogram for malignant neoplasm of breast
CPT/HCPCS: 77063; 77067

== ENCOUNTER → 2024-07-07 | Outpatient (CLI) | payer MEDICARE ==
--- NOTE | 2024-07-07 15:04 | US ---
EXAMINATION TYPE: US carotid duplex BILAT DATE OF EXAM: 07/07/2024 COMPARISON: NONE CLINICAL INDICATION: Female, 73 years old with history of R42 DIZZINESS AND GIDDINESS; HTN- on meds. No hx TIA or stroke. Additional History: .... TECHNIQUE: Grayscale, color Doppler and spectral Doppler evaluation of the bilateral carotid systems and vertebral arteries. Indirect Doppler criteria was utilized. FINDINGS: EXAM MEASUREMENTS: RIGHT: Peak Systolic Velocity (PSV) cm/sec ----- Right CCA: 74.7 ----- Right ICA: 87.5 ----- Right ECA: 69.1 ICA/CCA ratio: 1.2 RIGHT: End Diastole cm/sec ----- Right CCA: 18.0 ----- Right ICA: 27.0 ----- Right ECA: 8.7 LEFT: Peak Systolic Velocity (PSV) cm/sec ----- Left CCA: 60.2 ----- Left ICA: 91.9 ----- Left ECA: 72.3 ICA/CCA ratio: 1.5 LEFT: End Diastole cm/sec ----- Left CCA: 14.7 ----- Left ICA: 41.3 ----- Left ECA: 0.0 VERTEBRALS (direction of flow): Right Vertebral: Antegrade Left Vertebral: Antegrade Rhythm: Normal [employer] NOTES: No elevated velocities. Plaque in bilateral bulbs. Color Doppler imaging shows patency with blood flow throughout the carotid artery. Spectral waveforms are within normal limits. IMPRESSION: Right: No hemodynamically significant stenosis. Left: No hemodynamically significant stenosis. Criteria for Assigning % of Stenosis / Diameter reduction (Estimation based on the indirect measurements of the internal carotid artery velocities (ICA PSV). 1. Normal (no stenosis)=ICA PSV < 125 cm/s: ratio < 2.0: ICA EDV<40 cm/s. 2. Less than 50% stenosis=ICA PSV < 125 cm/s: ratio < 2.0: ICA EDV<40 cm/s. 3. 50 to 69% stenosis=ICA PSV of 125 to 230 cm/s: ration 2.0 ? 4.0: ICA EDV 40-100 cm/s. 4. Greater than 70% stenosis to near occlusion= ICA PSV > 230 cm/s: ratio > 4.0: ICA EDV > 100 cm/s. 5. Near occlusion= ICA PSV velocities may be low or undetectable: variable ratio and ICA EDV. 6. Total occlusion=unable to detect flow. [facility], , 07/07/2024 3:02 PM
== END | disposition home or self-care (01) ==
LOC: RADUSWWP 14:04
PROVIDERS: ATTEND Family Medicine
DX: R42 Dizziness and giddiness (principal)
CPT/HCPCS: 93880